=== PATIENT | male | born 1950 | race Caucasian/White ===

== ENCOUNTER 2020-11-21 09:06 | Emergency (ER) | payer MEDICARE, SELFPAY ==
--- NOTE | ~2020-11-21 | XR_ITS ---
EXAMINATION: XR chest 2V EXAM DATE: 11/21/2020 09:29 INDICATION: Cough and shortness of breath. TECHNIQUE: Frontal and lateral projections of the chest obtained and reviewed. Comparison is made to prior examination from 11/21/2017. FINDINGS: Suspect ill-defined bibasilar atelectasis or pneumonia. There is right upper lobe granuloma . No pneumothorax or pleural effusion. Cardiomediastinal silhouette is normal. There are no osseous a bnormalities identified. IMPRESSION: Ill-defined bibasilar opacities, could be atelectasis or pneumonia. Reviewed, dictated and finalized at location G. IMPRESSION: Ill-defined bibasilar opacities, could be atelectasis or pneumonia .
[2020-11-21 09:13] VITALS: BP 150/98; PULSE 109; RESP 21; TEMP 36.7; O2SAT 96
--- NOTE | 2020-11-21 09:16 | ECG_ITS ---
Measurements Intervals [place] Rate: 103 P: 42 CA: 174 QRS: 34 QRSD: 97 T: 62 QT: 334 QTc: 438 Interpretive Statements SINUS TACHYCARDIA VENTRICULAR PREMATURE COMPLEXES LOW QRS VOLTAGE IN LIMB LEADS BASELINE ARTIFACT- I, II, AVR BORDERLINE ECG Electronically Signed On 11-21-2020 9:23:07 CDT by Modesto Ramos D.O.
[2020-11-21 09:35] LABS: Basophils Absolute Auto 0.1 K/mm3 (0.0-0.1); Basophils Percent Auto 1.4 % (0.2-1.2); Eosinophils Absolute Auto 0.4 K/mm3 (0-0.3); Eosinophils Percent Auto 5.9 % (0-4.4); Hematocrit 41.4 % (42.0-52.0); Hemoglobin 14.1 g/dL (14.0-18.0); Immature Granulocyte Absolute 0.03 K/mm3 (0.00-0.031); Immature Granulocyte Percent A 0.5 % (0-0.5); Lymphocytes Absolute Auto 1.49 K/mm3 (0.9-3.2); Lymphocytes Percent Auto 22.4 % (18.3-44.2); Mean Corpuscular HGB Conc 34.1 g/dl (32-36); Mean Corpuscular Hemoglobin 32.1 pg (26-34); Mean Corpuscular Volume 94.3 fl (80-100); Mean Platelet Volume 10.4 fl (7.4-10.4); Monocytes Absolute Auto 0.6 K/mm3 (0.1-0.6); Monocytes Percent Auto 9.2 % (2.6-8.5); Neutrophils Percent Auto 60.6 % (45.5-73.1); Platelet Count Result 332 k/mm3 (150-375); Red Blood Count 4.39 M/mm3 (4.6-6.20); Red Cell Distribution Width 13.6 % (11.5-14.5); White Blood Count 6.7 K/mm3 (4.5-10.0)
[2020-11-21 09:50] LABS: Anion Gap 11 mmol/L (8-16); Blood Urea Nitrogen 21 mg/dL (9-20); Calcium 9.7 mg/dL (8.4-10.2); Carbon Dioxide 25 mmol/L (22-30); Chloride 101 mmol/L (98-107); Estimated CRCL calculation 57 ml/min; Estimated Glomerular Filt Rate > 60; Glucose 117 mg/dL (65-110); Potassium 4.2 mmol/L (3.4-5.0); Sodium 137 mmol/L (137-145)
[2020-11-21 09:57] LABS: NT Pro B Type Natriuretic Pept 99 pg/mL (5-100)
--- NOTE | 2020-11-21 10:12 | ED.GENADULT ---
HPI - General Adult General Chief complaint: Shortness of Breath/Dyspnea Stated complaint: copd, sob Time Seen by Provider: 11/21/20 09:55 Source: patient Mode of arrival: ambulatory Limitations: no limitations History of Present Illness HPI narrative: Patient is here for worsening exertional dyspnea. He is followed by pulmonology at another facility and was told to come to the emergency room if his shortness of breath worsened. He is currently on albuterol/Atrovent nebulizer 3 times a day plus a rescue inhaler, Trelegy daily and azithromycin 500 mg 3 times a week. His last course of steroids and treatment antibiotics was the end of September. He states that he also uses pep therapy at home, that helps him for short period of time but then he feels like he has a lot of mucus and he starts coughing with any exertion. Denies any fever or night sweats. Onset (ago): day(s) Relieving factors: medication Exacerbating factors: movement Associated symptoms: denies other symptoms Related Data Home Medications Medication Instructions Recorded Confirmed albuterol sulfate INHALATION 11/21/20 azithromycin 11/21/20 11/21/20 [id number]-[id number]-[id number] INHALATION 11/21/20 [Trelegy Ellipta] hydrochlorothiazide 11/21/20 ipratropium-albuterol ml INHALATION 11/21/20 losartan 11/21/20 Allergies Allergy/AdvReac Type Severity Reaction Status Date / Time JUDAH Inhibitors AdvReac Unknown Cough Verified 11/21/20 10:59 Review of Systems Review of Systems: All systems reviewed & are unremarkable except as noted in HPI and below [facility] Family History Family History Mother Hypertension Father Carcinoma of colon Patient's father is Social History Social History (Updated 11/21/20 @ 10:32 by Gladis Damon PA-C) Smoking status: Former smoker Alcohol intake: never Substance use: never Exam Const: General: alert Orientation/consciousness: patient oriented x3 Other: dyspnea with speech HENMT: Head: normal to inspection Mouth: Yes Normal oral and palatal mucosa present Throat: posterior oropharynx normal Eyes: Pupils: Equal, round and reactive pupils present Neck: Neck: no lymphadenopathy Resp: Effort & Inspection: labored (slighltyl) Auscultation: wheezes expiratory wheezes and left lower Other: cough with deep inspiraton Cardio: Rate: regular rate Rhythm: regular rhythm GI: GI Palp: Yes Soft to palpation Skin: General skin exam: normal color Extrem: General: normal to inspection Psych: Mental Status: mental status grossly normal Course Course Emergency Course: Feeling better after breathing treatment and IV steroids. Will speak with primary regarding continuing steroids follow-up in her office. No call back from primary pulm. Will treat with steriod burst and increase abx to treatment dosing. Vital Signs Vital signs: Vital Signs Temperature 36.7 C 11/21/20 09:13 Pulse Rate 109 H 11/21/20 09:13 Respiratory Rate 21 H 11/21/20 09:13 Blood Pressure 150/98 H 11/21/20 09:13 Pulse Oximetry 96 11/21/20 09:13 Temperature 36.7 C 11/21/20 09:13 Pulse Rate 93 11/21/20 13:54 Respiratory Rate 16 11/21/20 13:54 Blood Pressure 146/97 H 11/21/20 13:54 Pulse Oximetry 95 11/21/20 13:54 Medical Decision Making Vital Signs Vital Signs: Vital Signs Temperature 36.7 C 11/21/20 09:13 Pulse Rate 109 H 11/21/20 09:13 Respiratory Rate 21 H 11/21/20 09:13 Blood Pressure 150/98 H 11/21/20 09:13 Pulse Oximetry 96 11/21/20 09:13 Temperature 36.7 C 11/21/20 09:13 Pulse Rate 93 11/21/20 13:54 Respiratory Rate 16 11/21/20 13:54 Blood Pressure 146/97 H 11/21/20 13:54 Pulse Oximetry 95 11/21/20 13:54 Lab Data Result diagrams: 11/21/20 09:19 11/21/20 09:19 Labs: Lab Results 11/21/20 11/21/20 Range/Units 09:19 09:19 WBC 6.7 (4.5-10.0) K
[2020-11-21 10:35] VITALS: PULSE 88; RESP 16
[2020-11-21] MEDS: IPRATROPIUM BR 0.02% INH SOLN 0.5 MG/2.5 ML VIAL INHALATION (10:36)
[2020-11-21] MEDS: ALBUTEROL SULFATE NEB 2.5 MG/0.5 ML INH INHALATION (10:36)
[2020-11-21 10:58] VITALS: PULSE 96; RESP 16
[2020-11-21] MEDS: methylPREDNISolone SOD SUCC 40 MG VIAL IV PUSH (10:59)
[2020-11-21 13:54] VITALS: BP 146/97; PULSE 93; RESP 16; O2SAT 95
== END 2020-11-21 13:56 | disposition home or self-care (01) ==
PROVIDERS: Emergency Provider Emergency Medicine; PCP Physician Assistant
DX: J44.1 Chronic obstructive pulmonary disease with (acute) exacerbation (principal); Z87.891 Personal history of nicotine dependence; R00.0 Tachycardia, unspecified; I49.3 Ventricular premature depolarization
CPT/HCPCS: 36415; 71046; 80048; 83880; 85025; 93005; 94640; 96374; 99284; J2920

== ENCOUNTER 2022-07-26 09:51 | Outpatient (CLI) | payer MEDICARE, SELFPAY ==
--- NOTE | 2022-07-26 13:32 | WPDPFTINT ---
PFT Procedure Performed PFT Procedure Performed Spirometry with Pre/Post Bronchodilator Plethysmography (Lung Vol) Diffusing Cap (DLCO) Flow Vol Loop PFT Interpretation Lung volumes were measured with the body plethysmography method. The elevated FRC and RV are indicative of air trapping. Spirometry showed diminished expiratory flow rates and a diminished FEV1 to FVC ratio 40%, consistent with obstructive airway disease. Following administration of a bronchodilator there was no significant increase in the expiratory flow rates. Lung diffusion capacity is moderately reduced at 53% predicted. The flow volume loop is consistent with emphysema. Impression: Moderate obstructive airway disease with evidence of air trapping and no response to bronchodilators on this testing. Moderately reduced lung diffusion capacity.
--- NOTE | 2022-07-26 13:34 | WPDSIXMINUTE ---
Six Minute Walk Procedure Procedure Performed Pulmonary Stress Test (6 min walk) Six Minute Walk Six Minute Walk: This 6 minute walk test was carried out with the patient breathing ambient air. The baseline pre-walk oxyhemoglobin saturation was 91%. The patient walked 396 m with no stops during testing. During the walk the oxyhemoglobin saturation remained in the range of 91% to 95%. The perceived dyspnea on the Chloe scale was 3 at baseline and increased to 4 at the end of testing. Impression: No evidence of oxyhemoglobin desaturation on this testing.
== END 2022-07-26 09:52 | disposition home or self-care (01) ==
LOC: ANHPFT 09:52
PROVIDERS: PCP Physician Assistant; Visit Provider Nurse Practitioner
DX: J44.9 Chronic obstructive pulmonary disease, unspecified (principal)
CPT/HCPCS: 94060; 94618; 94726; 94729

== ENCOUNTER 2022-10-15 10:56 | Outpatient (CLI) | payer MEDICARE, SELFPAY ==
[2022-10-19 21:52] LABS: PSA, Free 1.52 ng/mL; PSA, Total 8.8 ng/mL (<=4.0); Percent Free Prostate Spec Ag 17 % (>25)
== END 2022-10-15 10:57 | disposition home or self-care (01) ==
PROVIDERS: PCP Physician Assistant
DX: R97.20 Elevated prostate specific antigen [PSA] (principal)
CPT/HCPCS: 36415; 84153; 84154

== ENCOUNTER 2022-12-03 09:30 | Outpatient (RCR) | payer MEDICARE, SELFPAY ==
[2022-08-24 08:46] VITALS: PULSE 77
== END 2022-12-03 23:59 | disposition home or self-care (01) ==
LOC: ANHCPREHAB 09:30
PROVIDERS: PCP Physician Assistant; Visit Provider Internal Medicine Pulmonary Disease
DX: J44.9 Chronic obstructive pulmonary disease, unspecified (principal)
CPT/HCPCS: 36415; 84153; 84154; 94625

== ENCOUNTER 2022-12-24 09:43 | Outpatient (RCR) | payer MEDICARE, SELFPAY ==
[2022-12-23 00:03] VITALS: PULSE 77
== END 2023-03-10 10:59 | disposition home or self-care (01) ==
LOC: ANHCPREHAB 09:43
PROVIDERS: PCP Physician Assistant; Visit Provider Internal Medicine Pulmonary Disease
DX: J44.9 Chronic obstructive pulmonary disease, unspecified (principal)
CPT/HCPCS: 94625

== ENCOUNTER 2023-09-13 11:18 | Emergency (ER) | payer MEDICARE, SELFPAY ==
[2023-09-13 11:20] VITALS: BP 135/69; PULSE 80; RESP 16; TEMP 36.6; O2SAT 96
[2023-09-13] MEDS: dexAMETHasone SOD PHOS INJ 10 MG/ML 1 ML VIAL IM (12:45)
--- NOTE | 2023-09-13 12:45 | ED.SKABFB ---
HPI - Skin/Abscess/Foreign Bdy General Chief complaint: Skin/Abscess/Foreign Body Stated complaint: body is itch 1 month Time Seen by Provider: 09/13/23 12:00 History of Present Illness HPI narrative: This is a 72-year-old male with a past medical history significant for COPD and previous liver spots according to him. Patient states he has been dealing with diffuse body itchiness for the last 6 weeks. He states that he was seen by his primary doctor and prescribed prednisone several times which did completely alleviated his symptoms however the recurred. Patient denies any new medications or detergents, dietary changes. He states he has otherwise been in his normal state of health but has unbearable HD as to his extremities. No new travel or injury. States he has been prescribed hydroxyzine intake and vaginal creams with some minimal improvement in his symptoms. Does have a follow-up appointment with his sighter but not been able to follow-up in the last few weeks due to cancellations. Denies any pain in his abdomen, chest, back. No fever, chills. No skin lesions, rashes, discoloration, skin deposits. Patient states he has itchiness is diffuse but sometimes localizes to the flexural creases. Related Data Home Medications Medication Instructions Recorded Confirmed albuterol sulfate 90 mcg/actuation inhalation 11/21/20 aerosol inhaler azithromycin 500 mg tablet 11/21/20 11/21/20 fluticasone fur. 100 mcg-umeclid inhalation 11/21/20 62.5 mcg-vilant 25 mcg inhalat.powder (Trelegy Ellipta) hydrochlorothiazide 12.5 mg tablet 11/21/20 ipratropium 0.5 mg-albuterol 3 mg ml inhalation 11/21/20 (2.5 mg base)/3 mL nebulization soln losartan 50 mg tablet 11/21/20 Allergies Allergy/AdvReac Type Severity Reaction Status Date / Time JUDAH Inhibitors AdvReac Unknown Cough Verified 09/13/23 11:19 [facility] Family History Family History Mother Hypertension Father Patient's father is Carcinoma of colon Pulmonary disease Social History Social History Smoking packs per day: 1 Smoking cigarettes per day: 20.0 Years smoked: 40 Smoking pack-years: 40.00 Smoking status: Former smoker Tobacco type: cigarettes Alcohol intake: never Substance use: never Living arrangements: with family Exam Narrative: GENERAL: [Well-appearing, well-nourished, and in no acute distress.] HEAD: [Normocephalic, atraumatic.] EYES: [PERRLA and EOMI.] ENT: Nares clear, no rhinorrhea or epistaxis. Mucous membranes moist. NECK: Supple. CHEST: [Clear to auscultation. No respiratory distress.] HEART: [Regular rate and rhythm]. No murmur heard. [Normal peripheral pulses.] ABDOMEN: [Soft, nondistended], [nontender], [No rigidity or guarding] EXTREMITIES: Normal range of motion. [No edema.] SKIN: Warm, dry, no rash. NEURO: [No focal deficits]. Alert and oriented [x3.] PSYCH: [Normal mood and affect.] Course Vital Signs Vital signs: Vital Signs Temperature 36.6 C 09/13/23 11:20 Pulse Rate 80 09/13/23 11:20 Respiratory Rate 16 09/13/23 11:20 Blood Pressure 135/69 09/13/23 11:20 Pulse Oximetry 96 09/13/23 11:20 Oxygen Delivery Room Air 09/13/23 11:20 Temperature 36.6 C 09/13/23 11:20 Pulse Rate 80 09/13/23 11:20 Respiratory Rate 16 09/13/23 11:20 Blood Pressure 135/69 09/13/23 11:20 Pulse Oximetry 96 09/13/23 11:20 Oxygen Delivery Room Air 09/13/23 11:20 MDM - Skin/Abscess/Foreign Bdy MDM Narrative Medical decision making narrative: This is a 72-year-old male presenting for diffuse pruritus without urticaria. It is usually localizes to his the flexural creases in his elbows, knees, underneath the buttocks. Has been trying prednisone, topical creams, Benadryl, hydroxyzine although only minimal relief of symptoms
[2023-09-13 13:00] LABS: Basophils Absolute Auto 0.1 K/mm3 (0.0-0.1); Basophils Percent Auto 0.9 % (0.2-1.2); Eosinophils Absolute Auto 0.4 K/mm3 (0-0.3); Hematocrit 44.3 % (42.0-52.0); Hemoglobin 15.1 g/dL (14.0-18.0); Immature Granulocyte Absolute 0.02 K/mm3 (0.00-0.031); Immature Granulocyte Percent A 0.3 % (0-0.5); Lymphocytes Percent Auto 17.1 % (18.3-44.2); Mean Corpuscular HGB Conc 34.1 g/dl (32-36); Mean Corpuscular Hemoglobin 33.2 pg (26-34); Mean Corpuscular Volume 97.4 fl (80-100); Mean Platelet Volume 9.8 fl (7.4-10.4); Monocytes Absolute Auto 0.5 K/mm3 (0.1-0.6); Monocytes Percent Auto 7.5 % (2.6-8.5); Neutrophils Absolute Auto 4.8 K/mm3 (1.3-6.7); Neutrophils Percent Auto 68.2 % (45.5-73.1); Platelet Count Result 373 k/mm3 (150-375); Red Blood Count 4.55 M/mm3 (4.6-6.20)
[2023-09-13 13:26] LABS: Alanine Aminotransferase 25 U/L (6-50); Albumin Level 4.6 g/dL (3.5-5.1); Alkaline Phosphatase 78 U/L (38-126); Anion Gap 10 mmol/L (4-12); Aspartate Amino Transferase 29 U/L (17-59); Bilirubin,Total 1.3 mg/dL (0.2-1.3); Blood Urea Nitrogen 21 mg/dL (9-20); Calcium 9.7 mg/dL (8.4-10.2); Carbon Dioxide 24 mmol/L (22-30); Chloride 102 mmol/L (98-107); Estimated CRCL calculation 50 ml/min; Estimated Glomerular Filt Rate > 60; Glucose 81 mg/dL (65-110); Magnesium 2.2 mg/dL (1.6-2.3); Potassium 4.9 mmol/L (3.4-5.0); Sodium 136 mmol/L (137-145)
[2023-09-13 13:30] LABS: CRP < 0.5 mg/dL (<1.0)
[2023-09-13 14:05] LABS: Erythrocyte Sedimentation Rate 9 mm/hr (0-20)
== END 2023-09-13 13:51 | disposition home or self-care (01) ==
PROVIDERS: Emergency Provider Student in an Organized Health Care Education/Training Program; PCP Physician Assistant
DX: L29.9 Pruritus, unspecified (principal); J44.9 Chronic obstructive pulmonary disease, unspecified; Z87.891 Personal history of nicotine dependence
CPT/HCPCS: 36415; 80053; 83735; 85025; 85652; 86140; 96372; 99283; J1100

== ENCOUNTER 2023-11-30 00:25 | Emergency (ER) | payer MEDICARE, SELFPAY ==
--- NOTE | ~2023-11-30 | XR_ITS ---
Clinical Indication: COPD, shortness of breath PA and lateral views of the chest: Comparison: 11/21/2020 Findings: Stable calcified right apical granuloma. COPD pattern of the lungs present. Cardiomediastin al silhouette is within normal limits. Bones and soft tissues are unremarkable. Impression: COPD. No acute abnormality seen. Reviewed, dictated and finalized at location . Impression: COPD. No acute abnormality seen.
[2023-11-30 00:25] VITALS: BP 155/97; PULSE 111; RESP 21; TEMP 36.3; O2SAT 93
--- NOTE | 2023-11-30 00:33 | ECG_ITS ---
Test Date: 2023-11-30 00:44:17 Measurements Intervals [place] Rate: 104 P: 52 GA: 171 QRS: 54 QRSD: 102 T: 66 QT: 343 QTc: 453 Interpretive Statements SINUS TACHYCARDIA No previous ECG available for comparison Electronically Signed On 11-30-2023 09:47:48 CDT by Hui Dietz M.D.
[2023-11-30 00:35] VITALS: PULSE 111; O2SAT 93
[2023-11-30 00:53] LABS: Basophils Absolute Auto 0.1 K/mm3 (0.0-0.1); Eosinophils Absolute Auto 0.7 K/mm3 (0-0.3); Eosinophils Percent Auto 11.7 % (0-4.4); Hematocrit 40.4 % (42.0-52.0); Hemoglobin 13.4 g/dL (14.0-18.0); Immature Granulocyte Absolute 0.02 K/mm3 (0.00-0.031); Immature Granulocyte Percent A 0.3 % (0-0.5); Lymphocytes Absolute Auto 2.01 K/mm3 (0.9-3.2); Lymphocytes Percent Auto 34.5 % (18.3-44.2); Mean Corpuscular HGB Conc 33.2 g/dl (32-36); Mean Corpuscular Hemoglobin 32.3 pg (26-34); Mean Corpuscular Volume 97.3 fl (80-100); Mean Platelet Volume 10.5 fl (7.4-10.4); Monocytes Absolute Auto 0.5 K/mm3 (0.1-0.6); Monocytes Percent Auto 9.1 % (2.6-8.5); Neutrophils Absolute Auto 2.5 K/mm3 (1.3-6.7); Neutrophils Percent Auto 43.4 % (45.5-73.1); Platelet Count Result 281 k/mm3 (150-375); Red Blood Count 4.15 M/mm3 (4.6-6.20); Red Cell Distribution Width 13.3 % (11.5-14.5); White Blood Count 5.8 K/mm3 (4.5-10.0)
--- NOTE | 2023-11-30 00:57 | ED.SOB ---
HPI - SOB/Dyspnea General Chief Complaint: Shortness of Breath/Dyspnea Stated Complaint: difficulty breathing, wheezing Time Seen by Provider: 11/30/23 00:33 Source: patient Mode of arrival: EMS Limitations: no limitations History of Present Illness HPI Narrative: Patient is a 73 y/o male who presents to the ED via EMS with report of SOB. Patient reports he has history of COPD and feels as though he had a flare up tonight. He states this typically occurs at night when he was feeling down. He states tonight's episode came on suddenly. He attempted using his nebulizer machine, but did not improve his breathing. EMS was then called. Patient was found to be hypoxic upon emesis arrival to 87% on room air. He was given Decadron and a nebulizer treatment en route to the ED. He is feeling slightly improved currently. He reports having congestion and an increased cough over the last few weeks. He does also report having intermittent left-sided chest pain, worse with exertion over the last few days. Denies chest pain currently. Denies fevers, lower extremity pain or swelling. Denies history of blood clots or CHF. History of previous cardiac ablation for PVCs. He is not on any anticoagulation. Related Data Home Medications Medication Instructions Recorded Confirmed albuterol sulfate 90 mcg/actuation inhalation 11/21/20 aerosol inhaler azithromycin 500 mg tablet 11/21/20 11/21/20 fluticasone fur. 100 mcg-umeclid inhalation 11/21/20 62.5 mcg-vilant 25 mcg inhalat.powder (Trelegy Ellipta) hydrochlorothiazide 12.5 mg tablet 11/21/20 ipratropium 0.5 mg-albuterol 3 mg ml inhalation 11/21/20 (2.5 mg base)/3 mL nebulization soln losartan 50 mg tablet 11/21/20 Allergies Allergy/AdvReac Type Severity Reaction Status Date / Time JUDAH Inhibitors AdvReac Unknown Cough Verified 11/30/23 00:38 Review of Systems Review of Systems: All systems reviewed & are unremarkable except as noted in HPI. All systems reviewed & are unremarkable except as noted in HPI and below [facility] Past Medical History Medical History (Updated 11/30/23 @ 01:33 by Rachel Stevens PA-C) COPD (chronic obstructive pulmonary disease) Pure hypercholesterolemia Surgical History Surgical History (Updated 11/30/23 @ 01:12 by Rachel Stevens PA-C) H/O cardiac radiofrequency ablation Family History Family History Mother Hypertension Father Patient's father is Carcinoma of colon Pulmonary disease Social History Social History Smoking packs per day: 1 Smoking cigarettes per day: 20.0 Years smoked: 40 Smoking pack-years: 40.00 Smoking status: Former smoker Tobacco type: cigarettes Alcohol intake: never Substance use: never Living arrangements: with family Exam Narrative: GENERAL: Elderly but overall well appearing, well-nourished, non-toxic, in no acute distress. HEAD: Normocephalic, atraumatic. RESPIRATORY: Airway patent, respirations mildly labored. Diminished lung sounds in bases bilaterally. Slight crackles noticed in bases. Diffuse expiratory wheezing bilaterally, worse throughout right lung. CARDIOVASCULAR: Regular rate and rhythm without murmurs, rubs, or gallops. Peripheral pulses intact. MUSCULOSKELETAL: Moves all extremities. No gross deformities. No peripheral edema. No calf tenderness. SKIN: Warm, dry, normal color. NEURO: A&O X3. Speech clear. Cranial nerves II-XII grossly intact. Steady gait. No ataxic movements. PSYCHIATRIC: Appropriate mood and affect. Normal interaction. Course Vital Signs Vital signs: Vital Signs Temperature 97.4 F L 11/30/23 00:25 Pulse Rate 111 H 11/30/23 00:25 Respiratory Rate 21 H 11/30/23 00:25 Blood Pressure 155/97 H 11/30/23 00:25 Pulse Oximetry 93 11/30/23 00:25 Oxygen Delivery Room
[2023-11-30 01:07] LABS: Partial Thromboplastin Time 26.8 Seconds (22.3-36.8)
[2023-11-30 01:12] LABS: Alanine Aminotransferase 23 U/L (6-50); Albumin Level 4.2 g/dL (3.5-5.1); Alkaline Phosphatase 74 U/L (38-126); Anion Gap 11 mmol/L (4-12); Aspartate Amino Transferase 30 U/L (17-59); Bilirubin,Total 0.9 mg/dL (0.2-1.3); Blood Urea Nitrogen 16 mg/dL (9-20); Calcium 9.1 mg/dL (8.4-10.2); Carbon Dioxide 21 mmol/L (22-30); Chloride 106 mmol/L (98-107); Estimated CRCL calculation 54 ml/min; Estimated Glomerular Filt Rate > 60; Glucose 111 mg/dL (65-110); Potassium 4.3 mmol/L (3.4-5.0); Sodium 138 mmol/L (137-145)
[2023-11-30 01:14] LABS: NT Pro B Type Natriuretic Pept 302 pg/mL (19.9-100)
[2023-11-30 01:15] LABS: Prothrombin Time 13.8 Seconds (11.1-14.7)
[2023-11-30 01:18] VITALS: PULSE 90; RESP 14
[2023-11-30] MEDS: IPRATROPIUM BR 0.02% INH SOLN 0.5 MG/2.5 ML VIAL 1.5 MG INHALATION (01:18)
[2023-11-30] MEDS: LEVALBUTEROL NEB 1.25 MG/3 ML 2.5 MG INHALATION (01:18)
[2023-11-30 01:21] LABS: D Dimer < 0.27 ug/mL (<0.48)
[2023-11-30 01:28] LABS: Influenza A QL RT-PCR Negative (Negative); Influenza B QL RT-PCR Negative (Negative); RSV RNA, RT-PCR Negative (Negative); SARS-CoV-2 RNA PCR Negative (Negative)
[2023-11-30 01:29] LABS: Troponin I < 0.012 ng/mL (0.000-0.034)
[2023-11-30 01:40] VITALS: BP 122/72; PULSE 88; RESP 18; O2SAT 100
[2023-11-30 02:19] VITALS: PULSE 87; RESP 17
[2023-11-30] MEDS: DOXYCYCLINE HYCLATE 100 MG TABLET PO (03:08)
[2023-11-30 03:13] VITALS: BP 130/79; PULSE 81; RESP 18; O2SAT 93
== END 2023-11-30 03:14 | disposition home or self-care (01) ==
PROVIDERS: Emergency Provider Physician Assistant; PCP Physician Assistant
DX: J44.1 Chronic obstructive pulmonary disease with (acute) exacerbation (principal); E78.00 Pure hypercholesterolemia, unspecified; Z87.891 Personal history of nicotine dependence; Z79.899 Other long term (current) drug therapy; R00.0 Tachycardia, unspecified
CPT/HCPCS: 36415; 71046; 80053; 83880; 84484; 85025; 85380; 85610; 85730; 87637; 93005; 94640; 99284; A9270

== ENCOUNTER 2024-06-19 14:28 | Outpatient (NON) | payer MEDICARE, SELFPAY ==
--- OUTSIDE RECORDS SUMMARY | 2024-06-19 14:35 | XMS_ITS | Data Portability ---
Author Organization [facility], Main Office Address [address] [place] [address] Care Team Providers Care Net Software Architect Name Role Phone KWABENA LEVY Primary Care Provider KWABENA LEVY Referring Provider JAY BARRAGAN Primary Care Provider JAY BARRAGAN Referring Provider Assessment Encounter Date Assessment Date Assessment LastModified by Organization Details LastModified Time 07/30/2022 07/30/2022 STATEMENT OF MEDICAL NECESSITY I recommend Trelegy Ellipta 100 and budesonide 0.25 BID per nebulizer this has kept him stable and I continue to recommend this as his inhaled therapy regimen. Not available 08/02/2022 14:58:05 Plan of Treatment Reminders Order Date Submit Date Provider Last Modified By Organization Details Last Modified Time Details Appointments None recorded. Lab hepatic function panel, serum 2022 023 ANDREIA Not available 3 18:22:51 Referral pulmonary rehab referral 2022 023 [email or web address] 25 [facility], [address], [address], 3 10:58:04 Procedures None recorded. Surgeries None recorded. Imaging None recorded. Medication Orders Trelegy Ellipta 100 mcg-62.5 mcg-25 mcg powder for inhalation 2022 023 ANDREIA [id number], [address] [place], [address], 3 15:57:14 budesonide 0.25 mg/2 mL suspension for nebulizatio n 2022 023 [email or web address] [id number], [address] [place], [address], 16:31:32 roflumilast 250 mcg tablet 2022 023 [email or web address] 4 [facility][id number], [address] [place], [address], 3 10:44:01 roflumilast 500 mcg tablet 2022 023 [email or web address] 4 [facility][id number], [address] [place], [address], 10:44:04 Patient TargetsNo targets recorded. Patient Instructions Encounter Date Encounter Id Patient Instructions Last Modified By Organization Details Last Modified Time 01/11/2023 [id number] dementia rating scale-2* [email or web address] Not available 01/12/2023 09:48:14 multi-dimensiona l health assessment questionnaire* [email or web address] Not available 01/12/2023 09:48:18 care plan* [email or web address] Not available 12/16 09:48:09 advance care planning: care instructions Not available 01/11/2023 23:11:35 advance directiv es: care instructions Not available 01/11/2023 23:11:35 [place] Advance Directives Not available 01/11/2023 23:11:35 Personalized a lth Plan and Screening Recommendations Advance Directives - Do you have one? Yes Advance Directives - Do we have your advance directive on file in your health record? No, please bring in a copy at your earliest convenience Primary Prevention/Interven tion (prevents or decreases the chance of common diseases from occurring) Smoking Risk: Non Smoker Alcohol Misuse Screening: Negative Weight: Appropriate Physical activity: Appropriate physical activity Nutrition: Good Fall Risk (screened today): Low Vaccines Pneumococcal: Ordered Recommended today Recommended today, but you have declined No further needed Influenza: Your next one in the fall of this year Chronic Disease Risks Stroke: Low Risk Intermediate Risk I have no recommendations Act higinio diagnosis, Continue current treatment plan Heart Attack: Low risk Intermediate Risk I have no recommendations Act higinio diagnosis, Continue current treatment plan Clogging of the Arteries: Low risk Intermediate Risk I have no recommendations Act higinio diagnosis, Continue current treatment plan Diabetes: Low Risk Intermediate Risk Active diagnosis, Continue current treatment plan Secondary Prevention/Interven tion (detects treatable diseases before they may cause symptoms, disability, or ) Prostate Cancer Screening: Colon Cancer Screening: Colonoscopy Date Screening Last Performed: Eye Disease Screening: Ordered Recommended today Dementia Risk: Low Depression Screening: Negative Active diagnosis, Continue current treatment plan Not available 01/11/2023 23:11:14 Reason for Referral Pulmonary Rehab Referral for Severe chronic obstructive pulmonary disease Referring Physician: Rosalia Guerrero, Pulmonary Disease, Encounter Date: 07/30/2022 Results Created Date Observation Date Name Description Value Unit Range Abnormal Flag Note LastModifiedBy Organization Detail LastModifiedTime 01/14/2001/11/2022 XR, lumbo sacra l spine No observ ation record ed. [id number], [place], [address], 04/14/2022 05:04:14 06/29/1906/25/2022 CT, chest , w/o contr ast No observ ation record ed. Not Available 18:05:41 07/27/1907/26/2022 compl ete PFT w/ post [facility] hodil ator lopez metry * No observ ation record ed. Not Available 07/27 09:47:18 07/27/19 23 07/26/2022 six minut e walk test* No observ ation record ed. Not Available 07/27 09:47:28 12/29/19 23 12/28/2022 pulmo nary rehab ilita tion* No observ ation record ed. Not Available 12/31 09:29:14 Result Notes None recorded. Problems Name Problem SNOMED Code Status Onset Date Resolution Date Notes Provider Name and Address Organization Details Recorded Time Severe chronic obstructiv e pulmonary disease 718661749 Active 2022 JADE Mitchell- [address] [facility], [place] [address], [place], [address] , [employer] 3 15:54:37 Pulmonary emphysema 00963913 Active 2022 [facility] [address] [facility], [place] [address], [place], [address] , [employer] 3 15:00:20 Chronic cough 20870425 Active 2022 [facility] [address] [facility], [place] [address], [place], [address] , [employer] 3 15:01:23 Benign essential hypertensi on 3070678 Active 2021 Not Available [facility] 3 04:51:12 Plantar fascial fibromatos is 29794412 Active Not Available [facility] 3 04:51:12 Chronic obstructiv e pulmonary disease 00407209 Active 2021 Not Available [facility] 3 04:51:12 Chronic obstructiv e pulmonary disease 89478080 Completed 201706/04/2020 Not Available [facility] 3 04:51:12 Body mass index 25-29 - overweight 898974826 Active 2021 Not Available [facility] 3 04:51:12 Acute exacerbati on of chronic obstructiv e pulmonary disease 932171890 Active 2021 Not Available [facility] 3 04:51:12 Lumbago with sciatica 816343554 Active 2021 Not Available [facility] 3 04:51:12 Ventricula r premature complex 477507755 Active 2021 Not Available [facility] 3 04:51:13 Lesion of liver 794781450 Active 2021 Not Available [facility] 3 04:51:13 Current tear of medial cartilage AND/OR meniscus of knee Active 2019 Not Available [facility] 3 04:51:13 Moderate chronic obstructiv e pulmonary disease 372626289 Active 2018 Not Available [facility] 3 04:51:13 Hypertensi ve disorder 41646635 Active 2017 Not Available [facility] 3 04:51:13 Solitary nodule of lung 766182565 Active 2018 Not Available [facility] 3 04:51:13 Cough 01807211 Active 2021 Not Available [facility] 3 04:51:13 Hyperlipid emia 58295280 Active 2018 Not Available [facility] 3 04:51:13 Dyspnea on exertion 41973785 Active 2021 Not Available [facility] 3 04:51:13 Problem Notes None recorded. Procedures Surgical History Date Name Laterality Status Provider Name and Address Organization Details Recorded Time 01/12/20 23 Medicare Wellness CPT Code, subsequent completed MERRITT Duenas [facility] 01/11/2023 10:41:49 02/14/19 20 colonoscopy completed MERRITT Duenas [facility] 01/11/2023 11:11:54 Hernia Repair completed Not Available [facility] 04/14/2022 04:42:53 Imaging Results Imaging Date Name Status LastModified by Organization Details LastModified Time 01/11/2022 XR, lumbosacral spine completed [id number], [place], [address], 04/14/2022 05:04:14 06/25/2022 CT, chest, w/o contrast completed [email or web address] Information not available 07/05/2022 18:05:41 07/26/2022 complete PFT w/ post bronchodilator spirometry* completed Information not available 07/27/2022 09:47:18 07/26/2022 six minute walk test* completed Information not available 07/27/2022 09:47:28 12/28/2022 pulmonary rehabilitation* completed Information not available 12/31/2022 09:29:14 Procedure Notes None recorded. Medical Equipment None Reported. Allergies Allergen ID Allergen Name Allergen Category Reaction Reaction Severity Criticality Documentation Date Start Date Code Code System Note Provider Name and Address Organization Details Recorded Time 7983 Substance with sulfonami de structure and antibacte rial mechanism of action (substanc e) medicatio n Not available Not available Not available 04/14/2022 96242 8003 SNOMED Not Available [facility] 05:03:45 Medications Name Sig Start Date Stop Date Status Note LastModified by Organization Details LastModified Time losartan 50 mg tablet Take 1 tablet every day by oral route. active Not Available Not Available No t Available prednisone 10 mg tablet PLEASE SEE ATTACHED FOR DETAILED DIRECTION S 01/10 completed Not Available Not Available Not Available doxycycline hyclate 100 mg capsule TAKE 1 CAPSULE BY MOUTH TWICE A DAY FOR 10 DAYS 01/10 completed Not Available Not Available Not Available atorvastati n 20 mg tablet Take 1 tablet every day by oral route. 2017 active Not Available Not Available Not Avai lable ipratropium 0.5 mg-albutero l 3 mg (2.5 mg base)/3 mL nebulizatio n soln INHALE 3 ML EVERY 4 HOURS BY NEBULIZAT ION ROUTE NEEDED. active Not Available Not Available No t Available albuterol sulfate 2.5 mg/3 mL (0.083 %) solution for nebulizatio n Inhale 3 mL 3 times a day by nebulizat ion route as needed. 01/07 completed Not Available Not Available Not Available ciprofloxac in 750 mg tablet Take 1 tablet every 12 hours by oral route as directed for 7 days. 01/10 completed Not Available Not Available Not Available azithromyci n 250 mg tablet Take 1 tablet 3 times a week by oral route as directed for 90 days. 01/06 completed Not Available Not Available Not Available hydrocodone 5 mg-acetamin ophen 325 mg tablet TAKE 1 TABLET BY MOUTH EVERY 4 HOURS NEEDED FOR PAIN active Not Available Not Available No t Available meloxicam 15 mg tablet Take 1 tablet every day by oral route as needed. active Not Available Not Available No t Available prednisone 20 mg tablet TAKE 3 TABLETS BY MOUTH EVERY DAY IN THE MORNING FOR 5 DAYS 01/10 completed Not Available Not Available Not Available ciprofloxac in 500 mg tablet TAKE 1 TABLET BY MOUTH TWICE A DAY active Not Available Not Available No t Available prednisone 10 mg tablets in a dose pack 01/23 completed Not Available Not Available Not Available Kenalog 10 mg/mL suspension for injection In office injection administe red by the provider 06/04 completed [facility]: 0003- [phone]- 20 Not Available Not Available Not Available losartan 25 mg tablet TAKE 1 TABLET (25 MG TOTAL) BY MOUTH DAILY. 01/10 completed Not Available Not Available Not Available fiber 625 mg tablet Take by oral route. 08/08 completed Not Available Not Available Not Available Advair Diskus 250 mcg-50 mcg/dose powder for inhalation Inhale 1 puff twice a day by inhalatio n route. 06/04 completed Not Available Not Available Not Available metoprolol tartrate 50 mg tablet TAKE 1 TABLET BY MOUTH TWICE A DAY active Not Available Not Available No t Available budesonide 0.25 mg/2 mL suspension for nebulizatio n Inhale 2 mL twice a day by nebulizat ion route for 90 days. 10/25 completed Not Available Not Available Not Available Aspir-81 mg tablet,kayla yed release Take 1 tablet every day by oral route. 10/23 completed Not Available Not Available Not Available levofloxaci n 750 mg tablet TAKE 1 TABLET BY MOUTH EVERY DAY DIRECTED FOR 10 DAYS 01/10 completed Not Available Not Available Not Available methylpredn isolone 4 mg tablets in a dose pack TAKE 1 DOSE PK BY ORAL ROUTE DIRECTED. 01/07 completed Not Available Not Available Not Available albuterol sulfate HFA 90 mcg/actuati on aerosol inhaler INHALE 2 PUFFS EVERY 4 6 HOURS BY INHALATIO N ROUTE NEEDED FOR 30 DAYS. active Not Available Not Available No t Available losartan 50 mg-hydrochl orothiazide 12.5 mg tablet TK 1 T PO QD 02/12 completed Not Available Not Available Not Available losartan 100 mg tablet TAKE 1 TABLET BY MOUTH EVERY DAY active Not Available Not Available No t Available loratadine 10 mg tablet Take 1 tablet every day by oral route. 10/23 completed Not Available Not Available Not Available amoxicillin 875 mg-allyson marroquin clavulanate 125 mg tablet TAKE 1 TABLET BY MOUTH EVERY 12 HOURS FOR 7 DAYS 09/10 completed Not Available Not Available Not Available azithromyci n 500 mg tablet TAKE ONE TABLET BY MOUTH THREE TIMES WEEKLY DIRECTED 01/10 completed Not Available Not Available Not Available metoprolol tartrate 25 mg tablet TAKE 1 TABLET BY MOUTH TWICE A DAY 01/11 completed Not Available Not Available Not Available Fiber Therapy (methylcell ulose) 500 mg tablet Take by oral route. 06/04 completed Not Available Not Available Not Available Advair Diskus 01/07 completed Not Available Not Available Not Available lidocaine (PF) 10 mg/mL (1 %) injection solution In office injection administe red by the provider 06/04 completed [facility]: 0409- 4276- 17 Not Available Not Available Not Available hydrochloro thiazide 12.5 mg tablet TAKE 1 TABLET BY MOUTH EVERY DAY active Not Available Not Available No t Available Symbicort 160 mcg-4.5 mcg/actuati on HFA aerosol inhaler Inhale 2 puffs twice a day by inhalatio n route for 30 days. 01/07 completed Not Available Not Available Not Available budesonide 1 mg/2 mL suspension for nebulizatio n INHALE 2 ML VIA NEBULIZER TWICE A DAY active Not Available Not Available No t Available Vitamin D3 50 mcg (2,000 unit) tablet Take 1 unit every day by oral route. 06/04 completed Not Available Not Available Not Available roflumilast 500 mcg tablet TAKE ONE-HALF A TABLET BY MOUTH DAILY active Not Available Not Available No t Available Combivent Respimat 20 mcg-100 mcg/actuati on solution for inhalation Inhale 1 puff 4 times a day by inhalatio n route. 01/07 completed Not Available Not Available Not Available Spiriva Respimat 2.5 mcg/actuati on solution for inhalation Inhale 2 puffs every day by inhalatio n route. 06/04 completed Not Available Not Available Not Available Spiriva Respimat 01/07 completed Not Available Not Available Not Available Arnuity Ellipta 100 mcg/actuati on powder for inhalation active Not Available Not Available N ot Available Stiolto Respimat 2.5 mcg-2.5 mcg/actuati on solution for inhalation Inhale 2 puffs every day by inhalatio n route. 12/05 completed Not Available Not Available Not Available omega 3 600 mg-dha 216 mg-epa 324 mg-fish oil 1,200 mg capsule,del rel Take by oral route. 2018 active Not Available Not Available Not Avai lable Trelegy Ellipta 100 mcg-62.5 mcg-25 mcg powder for inhalation INHALE 1 PUFF EVERY DAY BY INHALATIO N ROUTE DIRECTED FOR 90 DAYS. active Not Available Not Available No t Available roflumilast 250 mcg tablet Take 1 tablet every day by oral route. active Not Available Not Available No t Available Fish Oil 1,200 mg (144 mg-216 mg) capsule Take by oral route. 2019 active Not Available Not Available Not Avai lable Fluzone High-Dose Quad (PF) 240 mcg/0.7 mL IM syringe PHARMACY ADMINISTE RED 06/04 completed Not Available Not Available Not Available Vitals Date Recorded Body mass index (BMI) Body height Oxygen saturation Oxygen saturation in Arterial blood by Pulse oximetry Heart rate Body temperature Body weight Systolic blood pressure Diastolic blood pressure Provider Name and Address Organization Details Last Updated DateTime 2 26.9 kg/m2 170.18 cm 96 % 96 % 76 /min 97.7 [degF] 20842.8 9 g 124 mm[Hg] 70 mm[Hg] Not Available [employer] 3 04:44:35 Date Recorded Body height Body weight Body temperature Heart rate Oxygen saturation Oxygen saturation in Arterial blood by Pulse oximetry Systolic blood pressure Diastolic blood pressure Provider Name and Address Organization Details Last Updated DateTime 3 170.18 cm 04231.4 8 g 97.3 [degF] 84 /min 95 % 95 % 134 mm[Hg] 68 mm[Hg] Orquidea Garcia RN [place] [facility] [place] [employer] 3 15:16:59 Date Recorded Body height Body mass index (BMI) Body weight Body temperature Heart rate Oxygen saturation Oxygen saturation in Arterial blood by Pulse oximetry Systolic blood pressure Diastolic blood pressure Provider Name and Address Organization Details Last Updated DateTime 3 170.18 cm 26 kg/m2 14046.3 3 g 98.2 [degF] 79 /min 96 % 96 % 130 mm[Hg] 68 mm[Hg] Claudia Rudolph MA [facility] [employer] [facility] 3 10:57:06 Date Recorded Body height Body mass index (BMI) Body weight Body temperature Heart rate Oxygen saturation Oxygen saturation in Arterial blood by Pulse oximetry Systolic blood pressure Diastolic blood pressure Provider Name and Address Organization Details Last Updated DateTime 3 170.18 cm 25.7 kg/m2 92403.1 5 g 98.3 [degF] 94 /min 96 % 96 % 118 mm[Hg] 56 mm[Hg] Lucy Ferrell [facility] [employer] [facility] 3 14:21:50 Date Recorded Body height Body temperature Body mass index (BMI) Body weight Respiratory rate Oxygen saturation Oxygen saturation in Arterial blood by Pulse oximetry Heart rate Systolic blood pressure Diastolic blood pressure Provider Name and Address Organization Details Last Updated DateTime 3 170.18 cm 96.3 [degF] 24.6 kg/m2 09918 g 16 /min 96 % 96 % 88 /min 130 mm[Hg] 80 mm[Hg] MERRITT Duenas [facility] [employer] [facility] 3 11:10:23 Social History Question Answer Notes LastModified by Organization Details LastModified Time Tobacco Smoking Status Former Smoker quit 2013 Gisela Matias MA [facility] [employer] [facility] 10/25/2022 14:15:45 Do You Have An Advance Directive? Yes [id number] Information not available 04/14/2022 What Is Your Level Of Alcohol Consumption? Heavy [id number] Information not available 04/14/2022 Do You Wear A Helmet When Biking? No Information not available 10/25/2022 Are You Blind Or Do You Have Difficulty Seeing? Yes Wears Glassses Information not available 10/25/2022 What Is Your Level Of Caffeine Consumption? Moderate [id number] Information not available 04/14/2022 How Much Tobacco Do You Chew? None [id number] Information not available 04/14/2022 In The 14 Days Before Symptom Onset, Have You Had Close Contact With A Laboratory-conf irmed COVID-19 While That Case Was Ill? No Information not available 10/25/2022 In The 14 Days Before Symptom Onset, Have You Had Close Contact With A Person Who Is Under Investigation For COVID-19 While That Person Was Ill? No Information not available 10/25/2022 Are You Deaf Or Do You Have Serious Difficulty Hearing? No Information not available 10/25/2022 What Type Of Diet Are You Following? REGULAR [id number] Information not available 04/14/2022 Do You Or Have You Ever Used E-cigarettes Or Vape? Never Used Electronic Cigarettes Information not available 10/25/2022 What Is The Highest Grade Or Level Of School You Have Completed Or The Highest Degree You Have Received? [id number] Information not available 10/25/2022 Have There Been Any Changes To Your Family Or Social Situation? No Information not available 10/25/2022 When Did You Quit Smoking? 6-10yearssincelast cigarette Information not available 10/25/2022 Are There Any Guns Present In Your Home? Yes Information not available 10/25/2022 Do You Use Insect Repellent Routinely? Yes Information not available 10/25/2022 Where Do You Live? SingleLevelHouse Information not available 01/11/2023 Advance Directive- Providers Has Reviewed Directive And Consents To Follow Them (insert Provider Name With Any Objectives In Notes Field) Yes [id number] Information not available 04/14/2022 Do You Have A Medical Power Of Clam Shucking Machine Tender? Yes , Francine [email or web address] Information not available 01/11/2023 What Was The Date Of Your Most Recent Tobacco Screening? 09/10/2022 Information not available 10/25/2022 Have You Ever Been Counseled For Unhealthy Alcohol Use? No Information not available 10/25/2022 Do You Have Any Pets? No [email or web address] Information not available 01/11/2023 What Is Your Relationship Status? [id number] Information not available 04/14/2022 Do You Use Your Seat Belt Or Car Seat Routinely? Yes Information not available 10/25/2022 Do You Have Smoke And Carbon Monoxide Detectors In Your Home? Yes Information not available 10/25/2022 At What Age Did You Start Smoking Tobacco? 18 Information not available 10/25/2022 Are You Passively Exposed To Smoke? No Information not available 10/25/2022 Do You Or Have You Ever Used Smokeless Tobacco? Never Used Smokeless Tobacco [id number] Information not available 04/14/2022 Are There Any Smokers In Your House? No Information not available 10/25/2022 How Much Tobacco Do You Smoke? 1 PPD [id number] Information not available 04/14/2022 Do You Feel Stressed (tense, Restless, Nervous, Or Anxious, Or Unable To Sleep At Night)? [id number] Information not available 10/25/2022 Do You Use Any Illicit Or Recreational Drugs? No Information not available 10/25/2022 Do You Use Sunscreen Routinely? Yes Information not available 10/25/2022 Has Tobacco Cessation Counseling Been Provided? No Information not available 10/25/2022 Have You Recently Traveled Abroad? No Information not available 10/25/2022 Do You Have Any Dietary Restrictions? No Information not available 10/25/2022 Sex: Unknown Functional Status Question Answer Note LastModified by Organizat ion Details LastModified Time Do you have difficulty walking or climbing stairs? No Information not available 10/25/2022 Do you have transportation difficulties? No Information not available 10/25/2022 Are you able to walk? YESWOREST Information not available 10/25/2022 Do you have difficulty doing errands alone? No Information not available 10/25/2022 Are you able to care for yourself? Yes Information n ot available 10/25/2022 Do you have difficulty dressing or bathing? No Information not available 10/25/2022 What is your exercise level? Occasional [id number] Information not available 04/14/2022 Mental Status Question Answer Note LastModified by Organization D etails LastModified Time Do you have difficulty concentrating, remembering or making decisions? No Information no t available 10/25/2022 Family History Relationship Description Onset Age of this Age Resolved Age Notes LastModified by Organization Details LastModified Time Mother Hypertensive disorder [id number] Not available 04/14/2022 04:42:55 Father Malignant tumor of colon Not available 2022 14:15:44 Medical History Condition Response LUNG DISEASE/DISORDER Y HEARTBURN / REFLUX Y HYPERTENSION Y Immunizations Vaccine Type Date Status Note Provider Nam e and Address Organization Details Recorded Time Influenza, adjuvanted, quadrivalent, PF 3 completed TRACY Cherry - [facility] 11/15/2022 13:03:36 influenza, unspecified formulation 0 completed Not Available [facility] 04/14/2022 05:03:15 Influenza, split virus, quadrivalent, preservative 9 completed Not Available [facility] 04/14/2022 05:03:15 Influenza, split virus, quadrivalent, preservative 1 completed Not Available [facility] 04/14/2022 05:03:15 COVID-19, mRNA, LNP-S, PF, 100 mcg/0.5mL dose or 50 mcg/0.25mL dose 1 completed Not Available [facility] 04/14/2022 05:03:15 COVID-19, mRNA, LNP-S, PF, 100 mcg/0.5mL dose or 50 mcg/0.25mL dose 1 completed Not Available [facility] 04/14/2022 05:03:15 influenza, unspecified formulation 8 completed Not Available [facility] 05:03:15 Past Encounters Encounter ID Performer Location Encounter Start Date Encounter Closed Date Diagnosis/Indication Diagnosis SNOMED-CT Code Diagnosis ICD10 Code Diagnosis Note [id number] [facility] [place] [address] [place] [address] 06/04/2020 00:00:00 06/04/2020 13:30:56 [id number] [facility] [place] [address] [place] [address] 08/04/2020 00:00:00 08/04/2020 13:39:56 [id number] [facility] [place] [address] [place] [address] 10/10/2020 00:00:00 10/10/2020 13:45:47 [id number] [facility] [place] [address] [place] [address] 11/06/2020 00:00:00 11/06/2020 23:43:19 [id number] MARNIE Hernandez [facility] [place] [address] [place] [address] 01/07/2021 00:00:00 01/09/2021 20:36:22 [id number] [facility] [place] [address] [place] [address] 01/26/2021 00:00:00 01/26/2021 14:01:39 [id number] [facility] [place] [address] [place] [address] 07/15/2021 00:00:00 07/15/2021 13:52:09 [id number] MARNIE Hernandez [facility] [place] [address] [place] [address] 01/11/2022 00:00:00 01/11/2022 20:07:19 [id number] SUE Mitchell [facility] [place] [address] [place] [address] 01/15/2022 00:00:00 01/15/2022 13:15:08 [id number] Rosalia Guerrero [facility] [place] [address] [place] [address] 07/30/2022 15:11:13 07/30/2022 17:35:54 Long-term drug therapy 175723425 Z79.899 Daliresp Severe chr onic obstructive pulmonary disease 627501319 J44.9 PFT 02/2020 at [facility] with FEV1:FVC ratio 73%.FEV1 65% with 3% increase post-bronc hodilator. TLC 110%, RV 142%Repeat 07/2022 with ratio 40 and DLCO 53Graphs requested by staffTried and failed Symbicort, Spiriva, Asmanex, and Stiolto.Co ntinue to use Trelegy Ellipta 100 and budesonide per nebulizer, this has kept him stable and I continue to recommend this as his inhaled therapy regimen.Al buterol PRN - discussed indication s for useAzithro mycin 250 three times per weekLFT testing, consider daliresp, he has had 3 exacerbati ons in the last 6 monthsWe discussed reportable signs and symptomsSt art pulmonary rehabRTC in 1-2 months, PRN for concerns Solitary n odule of lung 356799943 R91.1 LLL subpleural nodule measuring 5 mm has been stable since 12/2017.Re peat completed 06/2022No new nodule, mass, enlarged lymph nodes Pulmonary emphysema 8743 3001 J43.9 Six minute walk completed, he does not require oxygen Dyspnea on exertion 6084 5006 R06.09 RAST, IGE, Alpha 1, Quantifero n GOLD, IGG and subclasses all normalHigh resolution images on CT chest with no signs of ILDPR as above Chronic cough 95259672 R 05.3 Inhaled therapy as above [id number] [facility] [place] [address] [place] [address] 09/10/2022 10:39:15 09/10/2022 11:44:40 Severe chronic obstructive pulmonary disease 329444181 J44.9 PFT 02/2020 at [facility] with FEV1:FVC ratio 73%.FEV1 65% with 3% increase post-bron hodilator. TLC 110%, RV 142%Repeat 07/2022 with ratio 40 and DLCO 53Graphs requested by staffTried and failed Symbicort, Spiriva, Asmanex, and Stiolto.Co ntinue to use Trelegy Ellipta 100 and budesonide per nebulizer, this has kept him stable and I continue to recommend this as his inhaled therapy regimen.Al buterol PRN - discussed indication s for useAzithro mycin 250 three times per weekDecrea se daliresp to 250mg dailyWe discussed reportable signs and symptomsCo ntinue pulmonary rehabRTC in 2 months, PRN for concerns Pulmonary emphysema 8743 3001 J43.9 Six minute walk completed 07/2022, he does not require oxygen Long-term drug therapy 220566595 Z79.899 Daliresp 250 dailyCheck LFT in October - last LFT 07/2022 normal Solitary n odule of lung 130238046 R91.1 LLL subpleural nodule measuring 5 mm has been stable since 12/2017.Re peat completed 06/2022No new nodule, mass, enlarged lymph nodes Dyspnea on exertion 6084 5006 R06.09 RAST, IGE, Alpha 1, Quantifero n GOLD, IGG and subclasses all normalHigh resolution images on CT chest with no signs of ILDPR as above Chronic cough 22585617 R 05.3 Inhaled therapy as above [id number] Rosalia Guerrero, [facility] [place] [address] [place] [address] 10/25/2022 14:14:33 10/25/2022 14:43:01 Severe chronic obstructive pulmonary disease 168379599 J44.9 CAT 6PFT 02/2020 at [facility] with FEV1:FVC ratio 73%.FEV1 65% with 3% increase post-bron hodilator. TLC 110%, RV 142%Repeat 07/2022 with ratio 40 and DLCO 53Graphs requested by staffTried and failed Symbicort, Spiriva, Asmanex, and Stiolto.Co ntinue to use Trelegy Ellipta 100 and budesonide per nebulizer, this has kept him stable and I continue to recommend this as his inhaled therapy regimen.Al buterol PRN - discussed indication s for useAzithro mycin 250 three times per weekDalire sp 250mg dailyWe discussed reportable signs and symptomsCo ntinue pulmonary rehabRTC in 2 months, PRN for concerns Pulmonary emphysema 8743 3001 J43.9 Six minute walk completed 07/2022, he does not require oxygen Long-term drug therapy 803261975 Z79.899 Daliresp 250 dailyLFT 10/2022 normal Solitary n odule of lung 401937201 R91.1 LLL subpleural nodule measuring 5 mm has been stable since 12/2017.Re peat completed 06/2022 with no changesNo new nodule, mass, enlarged lymph nodesNext due 06/2023 Dyspnea on exertion 6084 5006 R06.09 RAST, IGE, Alpha 1, Quantifero n GOLD, IGG and subclasses all normalHigh resolution images on CT chest with no signs of ILDContinu e SD Chronic cough 66130561 R 05.3 Inhaled therapy as above [id number] MARNIE Hernandez [facility] [place] [address] [place] [address] 01/11/2023 10:40:40 01/11/2023 11:49:45 Adult health examination 615305640 Z00.00 mawe and routine appts completed Screening for disorder 257586280 Z13.9 Hyperlipidemia 50613941 E78.5 stable on atorvastat in 20mg daily. labs are completed at the [facility] Benign ess ential hypertension 8202048 I10 stable no losartan 50mg daily. BP is bit raised today but all home numbers reported have been normal. 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 follows with cardiology Long-term drug therapy 012814471 Z79.899 Health Concerns Section Related Observation LastModified by Organization Detai ls LastModified Time None Recorded Concern Status LastModified by Organization Details LastModified Time None Recorded Advance Directives Directive Y: Payers Encounter Date Sequence Insurance Name Policy Number Policy Pride Covered Member ID Pride Member ID Guarantor Name 07/30/2022 1 [place] Lawrence W Clanin [id number] Lawrence Clanin 07/30/2022 2 [employer] OPTIONS (MEDICARE SUPPLEMENT) Lawrence Clanin [id number] Lawrence Clanin 09/10/2022 1 [place] Lawrence W Clanin [id number] Lawrence Clanin 09/10/2022 2 [employer] OPTIONS (MEDICARE SUPPLEMENT) Lawrence Clanin [id number] Lawrence Clanin 10/25/2022 1 [place] Lawrence W Clanin [id number] Lawrence Clanin 10/25/2022 2 [employer] OPTIONS (MEDICARE SUPPLEMENT) Lawrence Clanin [id number] Lawrence Clanin 01/11/2023 1 [place] Lawrence W Clanin [id number] Lawrence Clanin 01/11/2023 2 [employer] OPTIONS (MEDICARE SUPPLEMENT) Lawrence Clanin [id number] Lawrence Clanin Notes Date Note Type Note Provider Name and Address Organization Details Recorded Time 07/30/2022 text/html Mr Cher quijano ts today for follow up on COPD, lung nodule, dyspnea on exertion, cough. emphysema, testingHad another respiratory illness starting in April, lasted multiple weeks.He is mildly improved.3 exacerbations in the last 6 months.Denies hemoptysis and chest painNo enlarged lymph nodes or sore throat.Compliant with Trelegy Ellipta 100 daily and budesonide BID, although this is not on an affordable tier from his insuranceHas not increased nebulizer use.No wheezing currentlyIs not waking at night R/T respiratory symptoms.He continues to travel back and forth to [place], unsure if he will go in septemberHe is compliant with Azithromycin 250 mg three times weekly SUE Mitchell [address], [place], [address], [employer] 08/02/2022 15:04:49 09/10/2022 text/html Mr Cher quijano ts today for follow up on COPD, lung nodule, dyspnea on exertion, cough. emphysema, new medicationsHe has been significantly more active and is walking about 4 miles per dayHe is participating in pulmonary rehabDoes not feel as congested since starting Daliresp but has some appetite changes and is concerned about the side effects R/T depression3 exacerbations in the last 8 months.Denies hemoptysis and chest painNo enlarged lymph nodes or sore throat.Compliant with Trelegy Ellipta 100 daily and budesonide BIDRare albuterol useNo wheezing currentlyIs not waking at night R/T respiratory symptoms.He is compliant with Azithromycin 250 mg three times weekly JOHN Mitchell [address], [place], [address], [employer] 09/10/2022 14:11:00 10/25/2022 text/html Mr Cher quijano ts today for follow up on COPD, lung nodule, dyspnea on exertion, cough, emphysema, medicationsHe has been significantly more active and is walking about 5 miles per dayREports that he feels significantly improved with exerciseStamina is betterHe is participating in pulmonary rehabOn Daliresp 250 daily3 exacerbations in the last 10 months.Denies hemoptysis and chest painNo enlarged lymph nodes or sore throat.Compliant with Trelegy Ellipta 100 daily and budesonide BID - this has provided best clinicalRare albuterol useNo wheezing currentlyIs not waking at night R/T respiratory symptoms.He is compliant with Azithromycin 250 mg three times weeklyReports activity levels are significantly improved SUE Mitchell [address], [place], [address], [employer] 10/25/2022 16:32:51 01/11/2023 text/html COPDReported bypatient.Severity:se brant Duration:has noted for years; constant Onset/Timing:chronic: has not changed Context:occupational exposure Modifying Factors:relieved with bronchodilatorNotes:Onesimo Garay has lost 20 pounds, walks 5 miles per day and completed Cardiopulmonary rehab which has been terrific for him.HyperlipidemiaRep orted bypatient.Duration:ch ronic Control:usually well controlled Compliance:compliant; compliant with diet; exercises Complications:no coronary artery disease; no peripheral artery disease; no cardiovascular disease Risk Factors:hypertensionH ypertensionReported bypatient.Duration:barney s noted for years Onset/Timing:better Alleviating Factors:medication Associated Symptoms:no shortness of breath; no fatigue; no palpitations; no decline in exercise capacity; no snoring MARNIE Hernandez [address] [facility], [facility] [address], [place], [address], [place] [facility] [employer] 01/11/2023 23:11:40
--- OUTSIDE RECORDS SUMMARY | 2024-06-19 14:35 | XMS_ITS | Patient Health Record ---
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 Name Role Phone Vita Schneider Primary Care Provider Unavailab shay Sg Leivaquelyn Unavailable [phone] Allergies No Known Allergies Results Component Value Reference Range Notes -Respiratory Allergens w/Tot al IgE Area 8 Reviewed date:11/14/2023 02:11:45 PM Interpretation:Normal Performing Lab:[facility], [address] [place] [id number], Phone - [phone], Director - Rojelio Notes/Report: Class Description Levels of Specific IgE Class Description of Class ----- < 0.10 0 Negative 0.10 - 0.31 0/I Equivocal/Low 0.32 - 0.55 I Low 0.56 - 1.40 II Moderate 1.41 - 3.90 III High 3.91 - 19.00 IV Very High 19.01 - 100.00 V Very High >100.00 Very High Immunoglobulin E, Total 52 6-495 IU/mL K770-JpS D pteronyssinus <0.10 Class 0 kU/L H828-DdK D farinae <0.10 Class 0 kU/L X362-KsE Cat Dander <0.10 Class 0 kU/L P100-CgE Dog Dander <0.10 Class 0 kU/L Z391-XmU Mouse Urine <0.10 Class 0 kU/L R379-KtZ B[place] Grass <0.10 Class 0 kU/L C274-NfI [place] Grass <0.10 Class 0 kU/L Z256-XoA Cockroach, Kyrgyz <0.10 Class 0 kU/L X939-VoW Penicillium chrysogen <0.10 Class 0 kU /L Q160-JwR Cladosporium herbarum <0.10 Class 0 kU /L D908-GtR Aspergillus fumigatus <0.10 Class 0 kU /L K100-TdQ Alternaria alternata <0.10 Class 0 kU/ L P928-KoL Maple/Ninety Six <0.10 Class 0 kU/L F807-BxG Cocke, Mountain <0.10 Class 0 kU/L G088-IhI [place], White <0.10 Class 0 kU/L R633-QbH Elm, Palestinian <0.10 Class 0 kU/L S035-InY [place] <0.10 Class 0 kU/L F276-LlV Maple [place] Terry <0.10 Class 0 kU/L I789-TwM [place] <0.10 Class 0 kU/L N317-HkV David, White <0.10 Class 0 kU/L D605-QuP Pecan, [place] <0.10 Class 0 kU/L O071-UkM [place] <0.10 Class 0 kU/L X168-YhM Ragweed, Short <0.10 Class 0 kU/L U052-CtF Thistle, Singaporean <0.10 Class 0 kU/L E675-UsD Pigweed, Common <0.10 Class 0 kU/L W400-QnO Rough Marshelder <0.10 Class 0 kU/L ABN Option 3 Reviewed date:10/27/2023 12:48:58 PM Interpretation:Interpretation Performing Lab:[facility], [address] [place] [id number], Phone - [phone], Director - Jose Angel Notes/Report: ABN Option 3 One or more tests were removed at the request of the patient and may not be represented on this report. As a result, some or all of the tests originally requested may not have been performed or may be reported separately. Please contact your patient regarding any necessary follow-up. -Tryptase ([id number]) Reviewed date:10/27/2023 12:48:30 PM Interpretation:Normal Performing Lab:[facility], [place], [place] [id number], Phone - [phone], Director - Rojelio Notes/Report: Tryptase 9.0 2.2-13.2 ug/L -CMP (14) Reviewed date:10/27/2023 12:48:45 PM Interpretation:Normal Performing Lab:[facility] [address] [id number], Phone - [phone], Director - Jose Angel Notes/Report: Glucose 92 70-99 mg/dL BUN 19 8-27 mg/dL Creatinine 1.13 0.76-1.27 mg/dL eGFR 69 >59 mL/min/1.73 BUN/Creatinine Ratio 17 10-24 Sodium 136 134-144 mmol/L Potassium 5.0 3.5-5.2 mmol/L Chloride 99 96-106 mmol/L Carbon Dioxide, Total 23 20-29 mmol/L Calcium 9.6 8.6-10.2 mg/dL Protein, Total 6.4 6.0-8.5 g/dL Albumin 4.3 3.8-4.8 g/dL Globulin, Total 2.1 1.5-4.5 g/dL Bilirubin, Total 1.1 0.0-1.2 mg/dL Alkaline Phosphatase 88 44-121 IU/L AST (SGOT) 17 0-40 IU/L ALT (SGPT) 21 0-44 IU/L -Sedimentation Rate-Westergr en Reviewed date:10/27/2023 12:49:59 PM Interpretation:Normal Performing Lab:[facility] [address] [id number], Phone - [phone], Director - Jose Angel Notes/Report: Sedimentation Rate-Westergren 2 0-30 mm/hr -CBC With Differential/Plate let Reviewed date:10/27/2023 12:49:17 PM Interpretation:Normal Performing Lab:[facility] [address] [id number], Phone - [phone], Director - Jose Angel Notes/Report: WBC 10.7 3.4-10.8 x10E3/uL RBC 4.50 4.14-5.80 x10E6/uL Hemoglobin 14.5 13.0-17.7 g/dL Hematocrit 43.6 37.5-51.0 % MCV 97 79-97 fL MCH 32.2 26.6-33.0 pg MCHC 33.3 31.5-35.7 g/dL RDW 12.1 11.6-15.4 % Platelets 325 150-450 x10E3/uL Neutrophils 72 Not Estab. % Lymphs 17 Not Estab. % Monocytes 8 Not Estab. % Eos 1 Not Estab. % Basos 0 Not Estab. % Neutrophils (Absolute) 7.7 1.4-7.0 x10E3/uL Lymphs (Absolute) 1.8 0.7-3.1 x10E3/uL Monocytes(Absolute) 0.8 0.1-0.9 x10E3/uL Eos (Absolute) 0.2 0.0-0.4 x10E3/uL Baso (Absolute) 0.0 0.0-0.2 x10E3/uL Immature Granulocytes 2 Not Estab. % Immature Grans (Abs) 0.2 0.0-0.1 x10E3/uL (An elevated percentage of Immature Granulocytes has not been found to be clinically significant as a sole clinical predictor of disease. Does NOT include bands or blast cells. associated physiological leukocytosis may also show increased immature granulocytes without clinical significance.) Reason For Referral No Information Medications Medication SIG (Take, Route, Frequency, Duration) Notes Start Date End Date Status Loratadine 10 MG 1 tablet Orally Once a day Active Apixaban 5 MG as directed Orally Not-Taking predniSONE 10 MG Oral for 12 Days Active hydrOXYzine HCl 25 MG 1 tablet as needed Orally Once a day Not-Taking guaiFENesin ER 600 MG 1 tablet as needed Orally every 12 hrs Not-Taking Mucinex 600 MG 1 tablet as needed Orally every 12 hrs Not-Taking Losartan Potassium 50 MG 1 tablet Orally Once a day Active predniSONE 10 MG 4 tablets once a day for 2 days, 3 tablets once a day for 2 days, 2 tablets once a day for 2 days, 1 tablet once a day for 2 days Orally Once a day Not-Taking Albuterol Sulfate HFA 108 (90 Base) MCG/ACT 1 puff as needed Inhalation every 4 hrs Active Montelukast Sodium 10 MG 1 tablet Orally Once a day Not-Taking Metoprolol Tartrate 25 MG 1 tablet with food Orally Twice a day Active NAC 600 MG 1 capsule Orally Onc e a day Active Atorvastatin Calcium 20 MG 1 tablet Orally Once a day Not-Taking Trelegy Ellipta 100-62.5-25 MCG/ACT 1 puff Inhalation Once a day Active Daliresp 250 MCG 1 tablet Orally Once a day Active FiberCon 625 MG 2 tablets as needed Orally Three times a day Active Citalopram Hydrobromide 10 MG 1 tablet Orally Once a day Not-Taking Famotidine 40 MG 1 tablet as needed Orally Twice a day Active Abiola Hives 24HR 180 MG 1 tablet Swall ow whole with water; do not take with fruit juices. Orally twice a day for 90 days Active Social History Tobacco Use: Social History Observation Description Date Details (start date - stop date) Former Smoker NA - NA Tobacco Control (Standard) Question Answer Notes Tobacco use: Former smoker Problems Problem Type SNOMED Code ICD Code Onset Dates Problem Status W/U Status Risk Notes Problem Chronic allergic conjunctivitis (69573555) Other chronic allergic conjunctivitis (H10.45) Active confirmed Problem Allergic rhinitis caused by pollen (disorder) (62362346) Allergic rhinitis due to pollen (J30.1) Active confirmed Problem Chronic rhinitis (J31.0) Active confirmed Vital Signs Oximetry 97 % 01/25/2024 Blood pressure diastolic 78 mm Hg 01/25/2024 Height 67 in 01/25/2024 Blood pressure systolic 134 mm Hg 01/25/2024 Weight 154 lbs 01/25/2024 BMI 24.12 kg/m2 01/25/2024 Encounters Encounter Location Date Provider Diagnosis [facility] [address] [facility] [employer] [address] [address] 10/18/2023 Barb Leiva Dermatographic urticaria L50.3 [facility] [address] [facility] [employer] [address] [place] [address] 11/01/2023 Barb Leiva Dermatographic urticaria L50.3 ; Other chronic allergic conjunctivitis H10.45 ; Chronic rhinitis J31.0 and Allergic rhinitis due to pollen J30.1 [facility] [address] [facility] [employer] [address] [place] [address] 11/29/2023 Barb Leiva Dermatographic urticaria L50.3 and Chronic rhinitis J31.0 [facility] [address] [facility] [address] [place] [address] 01/25/2024 Barb Leiva Dermatographic urticaria L50.3 and Chronic rhinitis J31.0 Assessments Encounter Date Diagnosis (ICD Code) Assessment Notes Treatment Notes Treatment Clinical Notes Section Notes 11/01/2023 Dermatographic urticaria (ICD-10 - L50.3) Unclear cause for recurrent pruritus. Labs showed normal CBC with differential, CMP, tryptase. Skin testing today was negative but negative histamine control. He has been holding all antihistamines. ImmunoCAPs ordered for further evalaution. Recommend started Xyzal 5 mg BID, Famotidine 40 mg BID and hydroxyzine at night. Hydroxyzine was prescribed by PCP. His daughter is concerned about anxiety and we discussed talking to PCP about medications. We discussed that Xolair can be started if no improvement with antihistamines and anxiety becomes under control. 11/29/2023 Chronic rhinitis (ICD-10 - J31.0) Given the history and symptoms, ImmunoCAPs were performed to common aeroallergens to determine atopic status. ImmunoCAPs were negative. 11/29/2023 Dermatographic urticaria (ICD-10 - L50.3) Unclear cause for recurrent pruritus. Labs showed normal CBC with differential, CMP, tryptase. Skin testing was negative but negative histamine control. ImmunoCAPs were negative. Recommend holding atorvastatin for a full 2 weeks followed by 2 weeks of losartan if no change. He has started Citralopram for anxiety. Recommend starting Abiola BID, Famotidine 40 mg BID and hydroxyzine at night. Consider Xolair, but no recent hives. just itching. Moisturizer recommended. 01/25/2024 Chronic rhinitis (ICD-10 - J31.0) Given the history and symptoms, ImmunoCAPs were performed to common aeroallergens to determine atopic status. ImmunoCAPs were negative. 01/25/2024 Dermatographic urticaria (ICD-10 - L50.3) Unclear cause for recurrent pruritus. Labs showed normal CBC with differential, CMP, and tryptase. Skin testing was negative but negative histamine control. ImmunoCAPs were negative. Recommend holding fish oil and several vitamins individually for 2-3 weeks at a time. Minimal improvement with antihistamines but start Abiola, Famotidine and Hydroxyzine as needed. Discuss Losartan with Account Support Associate before considering holding. Moisturizer recommended. He is following with Dermatology at [facility] and planning to be evaluated by their new itch specialist. 10/18/2023 Dermatographic urticaria (ICD-10 - L50.3) Unclear cause for recurrent pruritus. Labs ordered as above for further evaluation. No improvement with antihistamines and will return in 2 weeks for skin testing after holding for 5 days. We discussed patch testing, but would need to be off steroids for 4 weeks and rash is not consistent with contact dermatitis. Start a trial of Xyzal 5 mg BID and famotidine 40 mg BID 11/01/2023 Other chronic allergic conjunctivitis (ICD-10 - H10.45) 11/01/2023 Chronic rhinitis (ICD-10 - J31.0) 11/01/2023 Allergic rhinitis due to pollen (ICD-10 - J30.1) 10/18/2023 Other 11/01/2023 Other 11/29/2023 Other 01/25/2024 Other Plan Of Treatment Pending Test Test Name Order Date -Immunoglobulin E, Total 11/01/2023 -TSH Rfx on Abnormal to Free T4 10/18/19 24 -Respiratory Allergens w/Total IgE Area 8 10/18/2023 Insurance Providers Payer Name Payer Address Payer Phone Subscriber Number Group Number Insured Name Patient Relationship to Insured Coverage Start Date Coverage End Date [employer] (Medicare) Attention Claims [address] [facility] [place] [address] [id number] Lawrence Kwon Self - patient is the insured [facility] [address] [place] [address] [id number] Lawrecne Kwon Self - patient is the insured Medical (General) History Medical History History ICD Code Hypertension COPD Zoster without complications B02.9 Surgical History Surgery Date(Month/Year) Hernia surgery Cardiac ablation 09-02-2023 Hospitalization History Reason Date(Month/Year) above surgeries
--- OUTSIDE RECORDS SUMMARY | 2024-06-19 14:35 | XMS_ITS | Continuity of Care Document ---
Author Organization Formerly [facility]. If a dditional information is needed, contact Health Information Management at [phone] Address [address] [place] [address] Phone Care Team Providers Care Lead Enterprise Architect Name Role Phone Unavailable Unavailable Unavailable Unavailable Unavailable Unavailable Unavailable Unavailable Unavailable Unavailable Unavailable Unavailable Unavailable Problems Chronic obstructive pulmonar y disease, unspecified Onset:02-May-2023 Chronic obstructive pulmonar y disease Onset:02-Mar-2020 MAKEDA Cartre III, MD Acute exacerbation of chroni c obstructive pulmonary disease Onset:02-Mar-2020 MAKEDA Carter III, MD Other chronic obstructive pu lmonary disease Elevated blood-pressure read ing, without diagnosis of hypertension Allergies and Adverse Reactions No Known Allergies(Allergy) Onset: 29-Nov-2012 No Known Allergies(Allergy) Medications fluticasone propionate 0.05 MG/ACTUAT Metered Dose Nasal [place];50 mcg/actuation NASAL 1d Quantity:16 Start:08-May-2024 Comments:fluticasone propionate predniSONE 20 MG Oral Tablet ;20 mg NOT APPLICABLE 1d Quantity:10 Start:08-May-2024 Comments:prednisone levoFLOXacin 750 MG Oral Tablet;750 mg NOT APPLICABLE 1d Quantity:5 Start:08-May-2024 Comments:levofloxacin predniSONE 20 MG Oral Tablet;prednisone Quantity:18 Start:02-May-2023 Status:Inactive Comments:prednisone prednisone;prednisone Quantity:10 Start:28-Mar-2023 Comments:prednisone benzonatate;benzonatate Quantity:30 Start:28-Mar-2023 Status:Prior History Comments:benzonatate metoprolol tartrate;metoprol ol tartrate Quantity:180 Start:02-Dec-2022 Comments:metoprolol tartrate budesonide;budesonide Quantity:60 Start:09-Aug-2022 Comments:budesonide Trelegy Ellipta;Trelegy [place] [employer] Quantity:60 Start:30-Jul-2022 Comments:Trelegy Ellipta roflumilast;roflumilast Quantity:30 Start:30-Jul-2022 Comments:roflumilast losartan potassium;losartan potassium Quantity:90 Start:23-Apr-2022 Comments:losartan potassium Albuterol 0.83 MG/ML / Ipratropium [place] 0.17 MG/ML Inhalant Solution;3 MILLILITER INHALATION Q10M PRN Quantity:1 MAKEDA Carter III, MD Start:02-Mar-2020 Status:Discontinued Comments:[id number] Administration Instructions:Duoneb 3 ml may repeat times X 3 hydroCHLOROthiazide 12.5 MG / losartan potassium 50 MG Oral Tablet [Hyzaar];1 TABLET ORAL DAILY Start:29-Nov-2012 Comments:1 TAB PO DAILY Procedures Dexamethasone sodium phos Date:09-May-19 Status:Completed THER/PROPH/DIAG INJ SC/IM Date:09-May-19 Status:Completed Social History Smoking Status Ex-smoker Recorded: 02-Mar-2020 Ex-smoker Vital Signs 08-May-2024 10:13 BP Sjowbgbg577ys[Hg] BP Agiulhzog90il[Hg] Pulse93{beats}/min Ucashuabmxe02.5f O2 SAT94% BMI24.3kg/m2 Jahqws93dj Vcaaub424pv 08-May-2024 10:13 BP Vtswcqyz553xj[Hg] BP Znmodwphz99hh[Hg] Pulse93{beats}/min Kjyqyvticnp11.5f O2 SAT94% BMI24.3kg/m2 Pggrmu71uz Yllhpz609ia Encounters Ambulatory Encounter Diagnosis:Rhinitis,Acute exacerbation of chronic obstructive pulmonary disease 08-May-2024 KATHI JORGE (Attending) [facility] 02-May-2023 HILDA RUTLEDGE (Attending) [facility] Goal Instructions Future Appointment Date Kathi Jorge Address: [address] [place] [id number] TESTS Test Name Status Date
--- OUTSIDE RECORDS SUMMARY | 2024-06-19 14:35 | XMS_ITS | Data Portability ---
Author Organization [facility] Address [address] [place] [address] Care Team Providers Care Compensation Specialist Name Role Phone HUSSEIN HOWARD Ext Js Developer RACHANA JEONG Radiation Control Specialist WAI YBRD Urologist Assessment No assessment recorded. Plan of Treatment Reminders Order Date Submit Date Provider Last Modified By Organization Details Last Modified Time Details Appointments None recorded. Lab None recorded. Referral None recorded. Procedures None recorded. Surgeries None recorded. Imaging None recorded. Medication Orders lidocaine 5 % topical patch 2023 024 ANDREIA [facility]/Pharmacy #[id number], [address] [place], [address], 14:41:55 citalopram 10 mg tablet 2023 024 [email or web address] [facility]/Pharmacy #[id number], [address] [place], [address], 13:46:58 Patient TargetsNo targets recorded. 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 tonsilar asymmetry/enlarged/abnormal. failed abx/steroid Referring Physician: Vita Schneider, Internal Medicine, Encounter Date: 06/15/2024 Results Created Date Observation Date Name Description Value Unit Range Abnormal Flag Note LastModifiedBy Organization Detail LastModifiedTime 11/30/19 24 11/30/2023 XR, chest , 2 view No observ ation record ed. [email or web address] [facility] [address], [place], [address], 11/30/2023 14:23:54 Result Notes None recorded. Problems Name Problem SNOMED Code Status Onset Date Resolution Date Notes Provider Name and Address Organization Details Recorded Time Benign essential hypertension 8434493 Active 2023 MARNIE Hernandez Attn: Accountin g,[address], [place], [address], [place] [facility] 4 10:24:01 Hyperlipidemia 31209038 Active 2023 MARNIE Hernandez Attn: Accountin g,[address] [facility], [place], [address], [place] [facility] 4 10:24:02 Chronic obstructive pulmonary disease 00220845 Active 2023 MARNIE Hernandez Attn: Accountin g,[address] [facility], [place], [address], [place] [facility] 4 10:24:03 Multiple premature ventricular complexes 283357451 Active 2023 MARNIE Hernandez Attn: Accountin g,[address] [facility], [place], [address], [place] [facility] 4 10:24:21 Generalized pruritus 894930098 Active 2023 MARNIE Hernandez Attn: Accountin g,[address], [place], [address], [place] [facility] 4 09:02:18 Anxiety 53664473 Active 2023 MARNIE Hernandez Attn: Accountin g,[address] [facility], [place], [address], [place] [facility] 4 09:02:20 Long-term drug therapy Active 2023 MARNIE Hernandez Attn: Andrew de leon,[address], [place], [address], [place] [facility] 4 09:02:33 Prostate specific antigen above reference range 506764937 Active 2023 MARNIE Hernandez Attn: Andrew g,[address], [place], [address], [place] [facility] 4 09:17:00 Post-herpetic trigeminal neuralgia 30309474 Active 2023 MARNIE Hernandez Attn: Andrew g,[address], [place], [address], [place] [facility] 4 09:17:02 Body mass index 20-24 - normal 117780964 Active 2024 Hodan Posadas MA null, [place] - [facility] 16:20:13 Problem Notes None recorded. Procedures Surgical History Date Name Laterality Status Provider Name and Address Organization Details Recorded Time catheter ablation of tissue of heart completed Hodan Posadas [place] - [facility] 06/15/2024 16:20:53 Hernia Repair completed Dilia Bang MA [place] - [facility] 06/13/2023 09:55:21 Knee Surgery completed Dilia Bang MA [place] - [facility] 06/13/2023 09:55:29 Prostate Biopsy completed Dilia Bang MA [place] - [facility] 06/13/2023 09:55:35 Imaging Results Imaging Date Name Status LastModified by Organiz ation Details LastModified Time 11/30/2023 XR, chest, 2 view completed [address], [place], [address], 11/30/2023 14:23:54 Procedure Notes None recorded. Medical Equipment None Reported. Allergies No known drug allergies Medications Name Sig Start Date Stop Date Status Note LastModified by Organization Details LastModified Time losartan 50 mg tablet TAKE 1 TABLET BY MOUTH EVERY DAY active Not Available Not Available No t Available nystatin 100,000 unit/mL oral suspensio n SHAKE LIQUID AND TAKE 5 ML BY MOUTH FOUR TIMES DAILY FOR 14 DAYS FOR FUNGAL THROAT INFECTIO N active Not Available Not Available No t Available prednison e 10 mg tablet PLEASE SEE ATTACHED FOR DETAILED DIRECTIO NS 06/15 completed Not Available Not Available Not Available atorvasta tin 20 mg tablet Take 1 tablet every day by oral route. active Not Available Not Available No t Available famotidin e 10 mg tablet TAKE 1 TABLET BY MOUTH TWICE A DAY 12/21 completed Not Available Not Available Not Available azithromy sole 250 mg tablet TAKE 2 TABLETS BY MOUTH TODAY, THEN TAKE 1 TABLET DAILY FOR 4 DAYS DIRECTED 06/12 completed Not Available Not Available Not Available benzonata te 200 mg capsule TAKE 1 CAPSULE BY MOUTH THREE TIMES A DAY NEEDED FOR COUGH 06/12 completed Not Available Not Available Not Available citalopra m 10 mg tablet TAKE 1 TABLET BY MOUTH EVERY DAY active Not Available Not Available No t Available valacyclo vir 1 gram tablet TAKE 1 TABLET BY MOUTH EVERY 8 HOURS 12/21 completed Not Available Not Available Not Available prednison e 20 mg tablet TAKE 2 TABLETS BY MOUTH DAILY FOR 5 DAYS 06/15 completed Not Available Not Available Not Available ciproflox acin 500 mg tablet TAKE 1 TABLET BY MOUTH TWICE A DAY. START TAKING THE DAY BEFORE PROCEDUR E UNTIL FINISHED 06/15 completed Not Available Not Available Not Available doxycycli ne monohydra te 100 mg tablet TAKE 1 TABLET (100 MG) ORALLY TWICE A DAY FOR 7 DAYS 12/21 completed Not Available Not Available Not Available triamcino lone acetonide 0.1 % topical cream APPLY TO RASH TWICE DAILY UP TO 4 WEEKS, THEN TAKE A 2-WEEK BREAK active Not Available Not Available No t Available alprazola m 0.5 mg tablet TAKE 1 TABLET BY MOUTH ONCE NEEDED, TAKE 30 MINUTES BEFORE BIOPSY active Not Available Not Available No t Available prednison e 50 mg tablet TAKE 1 TABLET (50 MG) ORALLY DAILY 12/21 completed Not Available Not Available Not Available lidocaine 5 % topical patch PLEASE SEE ATTACHED FOR DETAILED DIRECTIO NS active Not Available Not Available No t Available metoprolo l tartrate 50 mg tablet TAKE 1 TABLET BY MOUTH TWICE A DAY 12/21 completed Dose changed Not Available Not Available Not Available hydrocort isone 2.5 % topical cream APPLY TO AFFECTED AREA TWICE A DAY NEEDED FOR ITCHING 11/14 completed Not Available Not Available Not Available monteluka st 10 mg tablet TAKE 1 TABLET BY MOUTH EVERY DAY 11/14 completed Not Available Not Available Not Available hydroxyzi ne HCl 25 mg tablet TAKE 1 TABLET BY MOUTH THREE TIMES A DAY NEEDED FOR ITCHING active Not Available Not Available No t Available levofloxa sole 750 mg tablet TAKE 1 TABLET BY MOUTH DAILY FOR 5 DAYS active Not Available Not Available No t Available methylpre dnisolone 4 mg tablets in a dose pack TAKE 6 TABLETS ON DAY 1 DIRECTED ON PACKAGE AND DECREASE BY 1 TAB EACH DAY FOR A TOTAL OF 6 DAYS 12/21 completed Not Available Not Available Not Available cefdinir 300 mg capsule Take 1 capsule every 12 hours by oral route. 2024 active Not Available Not Available Not Avai lable losartan 100 mg tablet TAKE 1 TABLET BY MOUTH EVERY DAY 06/12 completed Not Available Not Available Not Available fluticaso ne propionat e 50 mcg/actua tion nasal spray,aylin pension SHAKE LIQUID AND USE 2 SPRAYS IN EACH NOSTRIL DAILY FOR 14 DAYS active Not Available Not Available No t Available azithromy sole 500 mg tablet TAKE ONE TABLET BY MOUTH THREE TIMES WEEKLY DIRECTED active Not Available Not Available No t Available metoprolo l tartrate 25 mg tablet TAKE 1 TABLET BY MOUTH TWICE DAILY active Not Available Not Available No t Available budesonid e 1 mg/2 mL suspensio n for nebulizat ion PLEASE SEE ATTACHED FOR DETAILED DIRECTIO NS active Not Available Not Available No t Available Xyzal 5 mg tablet Take 1 tablet every day by oral route. 12/21 completed Not Available Not Available Not Available roflumila st 500 mcg tablet TAKE 1 TABLET BY MOUTH DAILY active Not Available Not Available No t Available Eliquis 5 mg tablet TAKE 1 TABLET BY MOUTH TWICE A DAY 11/14 completed Not Available Not Available Not Available Trelegy Ellipta 100 mcg-62.5 mcg-25 mcg powder for inhalatio n INHALE 1 PUFF BY MOUTH DAILY active Not Available Not Available No t Available roflumila st 250 mcg tablet Take 1 tablet every day by oral route for 28 days. 12/21 completed Dose changed Not Available Not Available Not Available Vitals Date Recorded Body height Body mass index (BMI) Body weight Heart rate Oxygen saturation Oxygen saturation in Arterial blood by Pulse oximetry Systolic blood pressure Diastolic blood pressure Provider Name and Address Organization Details Last Updated DateTime 4 170.18 cm 24.2 kg/m2 82072.6 6 g 63 /min 96 % 96 % 120 mm[Hg] 76 mm[Hg] Dilia Bang MA [facility] 09:57:47 Date Recorded Systolic blood pressure Diastolic blood pressure Systolic blood pressure Diastolic blood pressure Provider Name and Address Organization Details Last Updated DateTime 06/13/2023 138 mm[Hg] 80 mm[Hg] 140 mm[Hg] 80 mm[Hg] MARNIE Hernandez Attn: Accounting ,[address] [place], [address] , [facility] 10:17:38 Date Recorded Body height Body mass index (BMI) Body weight Respiratory rate Oxygen saturation Oxygen saturation in Arterial blood by Pulse oximetry Heart rate Systolic blood pressure Diastolic blood pressure Provider Name and Address Organization Details Last Updated DateTime 4 170.18 cm 24.2 kg/m2 03781.9 4 g 18 /min 96 % 96 % 60 /min 150 mm[Hg] 82 mm[Hg] Hodan Posadas MA [facility] 4 14:07:14 Date Recorded Systolic blood pressure Diastolic blood pressure Provider Name and Address Organization Details Last Updated DateTime 11/15/2023 140 mm[Hg] 80 mm[Hg] MARNIE Hernandez Attn: Accounting,[address] [place], [address], [facility] 11/15/2023 14:52:54 Date Recorded Body height Body mass index (BMI) Body weight Oxygen saturation Oxygen saturation in Arterial blood by Pulse oximetry Heart rate Systolic blood pressure Diastolic blood pressure Provider Name and Address Organization Details Last Updated DateTime 4 170.18 cm 23.5 kg/m2 65672.8 6 g 96 % 96 % 89 /min 140 mm[Hg] 82 mm[Hg] Hodan Posadas MA [facility] 13:53:42 Date Recorded Pain severity - 0-10 verbal numeric rating [Score] - Reported Provider Name and Address Organization Details Last Updated DateTime 12/22/2023 4 Love Bhat [facility] 12/22/2023 13:57:23 Date Recorded Respiratory rate Systolic blood pressure Diastolic blood pressure Provider Name and Address Organization Details Last Updated DateTime 12/22/2023 18 /min 134 mm[Hg] 82 mm[Hg] MARNIE Hernandez Attn: Accounting, [address] [place], [address], [facility] 12/22/2023 14:44:07 Date Recorded Body height Body mass index (BMI) Body weight Respiratory rate Oxygen saturation Oxygen saturation in Arterial blood by Pulse oximetry Heart rate Systolic blood pressure Diastolic blood pressure Provider Name and Address Organization Details Last Updated DateTime 170.18 cm 24.1 kg/m2 50897.2 2 g 18 /min 96 % 96 % 90 /min 130 mm[Hg] 82 mm[Hg] Hodan Posadas MA [facility] 16:22:47 Social History Question Answer Notes LastModified by [employer] ion Details LastModified Time Tobacco Smoking Status Former Smoker Hodan Posadas MA null, [facility] 06/10/2023 10:03:07 Do You Have An Advance Directive? Yes Information not available 06/10/2023 What Is Your Level Of Alcohol Consumption? None Former mebyma Information not available 06/13/2023 Are You Blind Or Do You Have Difficulty Seeing? No Information not available 06/10/2023 What Is Your Level Of Caffeine Consumption? Moderate 2 Cups Coffee A Day Information not available 12/22/2023 In The 14 Days Before Symptom Onset, Have You Had Close Contact With A Laboratory-confir med COVID-19 While That Case Was Ill? No Information not available 06/10/2023 In The 14 Days Before Symptom Onset, Have You Had Close Contact With A Person Who Is Under Investigation For COVID-19 While That Person Was Ill? No Information not available 06/10/2023 Have You Been To An Area Known To Be High Risk For COVID-19? No Information not available 06/10/2023 Are You Currently Employed? No Retired Information not available 12/22/2023 Are You Deaf Or Do You Have Serious Difficulty Hearing? No Information not available 06/10/2023 What Type Of Diet Are You Following? REGULAR Information not available 06/10/2023 What Is The Highest Grade Or Level Of School You Have Completed Or The Highest Degree You Have Received? [id number] Information not available 12/22/2023 Are There Any Guns Present In Your Home? Yes Information not available 06/10/2023 In The Past 7 Days, How Much Pain Have You [place]? Some Information not available 12/22/2023 In General, Would You Say You Health Is: Fair Information not available 12/22/2023 How Would You Describe The Condition Of Your Mouth And Teeth- Including False Teeth Or Dentures? Fair Information not available 12/22/2023 Each Night, How Many Hours Of Sleep Do You Get? 8 Information no t available 12/22/2023 Has Anyone Ever Told You That You Snore? Yes Information not available 12/22/2023 In The Past 7 Days, How Often Have You [place] Sleepy In The Daytime? Never Information not available 12/22/2023 # Alcohol Drinks Per Week 0 Information not available 12/22/2023 What Was The Date Of Your Most Recent Tobacco Screening? 06/15/2024 Information not available 06/15/2024 What Is Your Current Pack Years? 10packyears Information not available 06/10/2023 Do You Use Your Seat Belt Or Car Seat Routinely? Yes Information not available 06/10/2023 Do You Have Smoke And Carbon Monoxide Detectors In Your Home? Yes Information not available 06/10/2023 Do You Feel Stressed (tense, Restless, Nervous, Or Anxious, Or Unable To Sleep At Night)? [id number] Information not available 12/22/2023 Do You Use Any Illicit Or Recreational Drugs? No Information not available 06/10/2023 Do You Use Sunscreen Routinely? Yes Information not available 12/22/2023 Has Tobacco Cessation Counseling Been Provided? No Information not available 12/22/2023 On What Date Was Tobacco Cessation Counseling Provided? 06/15/2024 Information not available 06/15/2024 How Many Years Have You Smoked Tobacco? 30 Quit 10 Years Ago Information not available 12/22/2023 Do You Or Have You Ever Used Any Other Forms Of Tobacco Or Nicotine? No Information not available 06/10/2023 Sex: Male Functional Status Question Answer Note LastModified by Organization D etails LastModified Time Are you able to care for yourself? Yes Information not available 06/10/2023 What is your exercise level? Moderate Information not available 06/10/2023 Mental Status None recorded. Family History Relationship Description Onset Age of this Age Resolved Age Notes LastModified by Organization Details LastModified Time Mother Malignant tumor of breast mebyma Not available 2023 09:54:08 Mother Diabetes mellitus mebyma Not available 2023 09:54:21 Mother Hypertensive disorder mebyma Not available 2023 09:54:26 Father Malignant tumor of colon mebyma Not available 2023 09:54:14 Notes:no change Medical History Condition Response Coronary Artery Disease N Other Y Atrial Fibrillation N High Blood Pressure Y Depression N COPD Y Blood Clots N Anxiety Disorder Y Muscle, Joint, or Bone Problems N Acid Reflux (GERD) Y Cancer N Stroke N Headaches N Kidney or Bladder Problems N Have you had a mammogram in the last yea r? N Skin Problems N Asthma N Allergies N Have you had a PSA blood test in the las t year? Y Hepatitis N High Cholesterol N Liver Disease N Thyroid Problems N GI Problems N Anemia N Heart Attack (NM) N Diabetes N Seizures/Epilepsy N Have you had a colonoscopy in the last 1 0 years? Y Heart Failure N Osteoporosis N Immunizations Vaccine Type Date Status Note Provider Nam e and Address Organization Details Recorded Time Influenza, high-dose, quadrivalent, PF 0 completed Hodan [place] [facility] 12/21/2023 12:27:58 Influenza, high-dose, quadrivalent, PF 2 completed Hodan [place] [facility] 12/21/2023 12:27:58 Influenza, adjuvanted, quadrivalent, PF 3 completed Hodan [place] [facility] 12/21/2023 12:27:58 COVID-19, mRNA, LNP-S, PF, 100 mcg/0.5mL dose or 50 mcg/0.25mL dose 1 completed Hodan [place] [facility] 12/21/2023 12:27:58 COVID-19, mRNA, LNP-S, bivalent, PF, 30 mcg/0.3 mL dose 2 completed Hodan [place] [facility] 12/21/2023 12:27:58 COVID-19, mRNA, LNP-S, PF, anson-sucrose, 30 mcg/0.3 mL 3 completed CLIFF Cline, [place] [facility] 12/21/2023 12:27:58 Influenza, high-dose, trivalent, PF 7 completed Hodan [place] [facility] 12/21/2023 12:27:58 Influenza, high-dose, trivalent, PF 8 completed Hodan [place] [facility] 12/21/2023 12:27:58 Influenza, high-dose, trivalent, PF 4 [place] [facility] 12/21/2023 15:12:49 Tdap 2 completed [place] Bhat [place] [facility] 01/02/2024 15:28:48 zoster, unspecified formulation 1 completed [place] Bhat [place] [facility] 01/02/2024 15:29:10 pneumococcal polysaccharide PPV23 9 completed [place] Bhat [place] [facility] 01/02/2024 15:29:28 Pneumococcal conjugate PCV 13 5 completed [place] Bhat [place] [facility] 01/02/2024 15:29:42 Past Encounters Encounter ID Performer Location Encounter Start Date Encounter Closed Date Diagnosis/Indication Diagnosis SNOMED-CT Code Diagnosis ICD10 Code Diagnosis Note [id number] Nicholas Siddiqi MD [facility] [address] [place] [address] 06/13/2023 09:41:38 06/13/2023 10:28:51 Chronic obstructive pulmonary disease 38446224 J44.9 pt is on trelegy and budesonide via pulmonary. all refills need to come from them. Benign ess ential hypertension 3484797 I10 stable on metoprolol tartrate 50mg bid and losartan 50mg daily. Long-term drug therapy 654186875 Z79.899 Hyperlipidemia 50580319 E78.5 stable on atorvastat in 20mg daily. labs every fall with [facility] Multiple p remature ventricular complexes 259202087 I49.3 plans for ablation in august. . [id number] Nicholas Siddiqi MD [facility] [address] [place] [address] 11/15/2023 13:47:04 11/15/2023 15:00:59 Benign essential hypertension 6222518 I10 stable on metoprolol tartrate 50mg bid and losartan 50mg daily. Hyperlipidemia 31039877 E78.5 stable on atorvastat in 20mg daily. labs every fall with [facility] Chronic ob structive pulmonary disease 72895703 J44.9 pt is on trelegy and budesonide via pulmonary. all refills need to come from them. Multiple p remature ventricular complexes 325609199 I49.3 Stable on beta-block er therapy Long-term drug therapy 662372868 Z79.899 All labs are currently up-to-date with [facility] Anxiety 29174740 F41.9 Trial of low-dose citalopram 10 mg daily in case the generalize d pruritus is coming from underlying anxiety Generalized pruritus 276 854796 L29.9 Patient can continue to use his hydroxyzin e as directed. [id number] Nicholas Siddiqi MD [facility] [address] [place] [address] 12/22/2023 13:39:50 12/22/2023 14:50:02 Adult health examination 607136209 Z00.00 Health Risk Assessment collected and reviewed Generalized pruritus 276 177812 L29.9 STOP atorvastat in med until further notice. Post-herpe tic trigeminal neuralgia 28367450 B02.22 left side anterior chest and back Prostate s pecific antigen above reference range 567500738 R97.20 9.791 [facility] [address] Byrd labs. Benign ess ential hypertension 6178145 I10 stable on metoprolol tartrate 50mg bid and losartan 50mg daily. Chronic ob structive pulmonary disease 79721152 J44.9 pt is on trelegy and budesonide via pulmonary. all refills need to come from them. Hyperlipidemia 09098663 E78.5 stable on atorvastat in 20mg daily. labs every fall with [facility] Long-term drug therapy 630109525 Z79.899 All labs are currently up-to-date with [facility] [id number] Nicholas Siddiqi MD [facility] [address] [place] [address] 06/15/2024 16:11:46 06/18/2024 16:31:05 Body mass index 20-24 - normal 340195665 Z68.24 24.1 Tonsil asymmetry 2634187 03 J35.8 Health Concerns Section Related Observation LastModified by Organization Detai ls LastModified Time None Recorded Concern Status LastModified by Organization Details LastModified Time None Recorded Advance Directives Directive Y: Payers Encounter Date Sequence Insurance Name Policy Number Policy Pride Covered Member ID Pride Member ID Guarantor Name 06/13/2023 1 [place] Lawrence Clanin [id number] Lawrence Clanin 06/13/2023 2 [employer] OPTIONS (MEDICARE SUPPLEMENT) Lawrence Clanin [id number] Lawrence Clanin 11/15/2023 1 [place] Lawrence Clanin [id number] Lawrence Clanin 11/15/2023 2 [employer] OPTIONS (MEDICARE SUPPLEMENT) Lawrence Clanin [id number] Lawrence Clanin 12/22/2023 2 [employer] OPTIONS (MEDICARE SUPPLEMENT) Lawrence Clanin [id number] Lawrence Clanin 12/22/2023 [place] [facility] - [facility] Lawrence Kwon [id number] Lawrence Kwon Notes Date Note Type Note Provider Name and Address Organization Details Recorded Time 06/13/19 24 text/htm l COPDReported bypatient.Notes:pt is on trelegy and budesonide. he needs to get these refills from Pulmonary. he has appt tuesday with themHyperlipidemiaReported bypatient.Notes:on atorvastatin 20mg daily. UTD via the [facility] every fall.HypertensionReported bypatient.Notes:stable on metoprolol and losartan. 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 Cardiac of hx of PVC's that are so frequent. He has seen specialist after specialist. He just finished a 30 day event monitor. 14% PVCs. He is getting ablation september 01. MARNIE Hernandez Attn: Accounting,[address], [place], [address], [facility] 06/13/2023 10:24:36 11/15/19 24 text/htm l Had skin testing at [facility] that did not show any allergy on skin at all.Derm visit med trials did not help at all for the generalized pruritus. His family and polysomnograph tech are questioning if he could have underlying anxiety that is driving this. Patient also takes losartan 50 mg daily and metoprolol 50 mg twice daily for hypertension. Question if losartan could be causing delayed sensitivity reaction in the form of generalized pruritus ? Patient has underlying hyperlipidemia and takes statin therapy. Patient has underlying COPD and is followed by Pulmonary and is on an inhaler regimen as well as roflumilast 250 mcg daily. Patient has history of multiple PVC complexes in which he does take metoprolol and is managed. MARNIE Hernandez Attn: Accounting,[address], [place], [address], [facility] 12/05/2023 09:02:47 12/22/19 24 text/htm l MAW 2Reported bypatient.Diet and Nutrition:healthy diet Fracture Risk:no history of fractures; no sudden unexplained fractures Concentration and Memory:no decreased concentrating ability; no memory lapses or loss; does not forget words Speech/Motor difficulties:no speech difficulties; no difficulty expressing formulated concepts; no difficulty with fine manipulative tasks; no difficulty writing/copying; no slowed reaction time; does not knock things over when trying to pick them up Hearing:no loss of hearing Vision:worse with distance(glasses) Activities of Daily Living:able to bathe with limited or no assistance; able to contol urination and bowels; able to dress with limited or no assistance; able to feed self with limited or no assistance; able to get out of chair or bed with limited or no assistance; able to groom with limited or no assistance; able to toilet with limited or no assistance Instrumental Activities of Daily Living:able to do house work with limited or no assistance; able to grocery shop with limited or no assistance; able to manage medications with limited or no assistance; able to manage money with limited or no assistance; able to prepare meals with limited or no assistance; able to use the phone with limited or no assistance Falls Risk Assessment:no frequent falls while walking; no fall in the past year; no fall since last visit; no dizziness/vertigo Home Safety:no unsafe yoni hazzards; no unsafe stairs; working smoke/CO detectors; practicing 'safer sex'; no fire arms; has hand bars in the bathroom/shower; good lighting in the home MARNIE Hernandez Attn: Accounting,[address] [place], [id number], [facility] 01/09/2024 09:17:34
--- OUTSIDE RECORDS SUMMARY | 2024-06-19 14:35 | XMS_ITS | Continuity of Care Document ---
Author Name [facility] Organization [facility] Care Team Providers Care Induction Coordination Engineer Name Role Phone [facility] Unavailable Unavailable Problems Combined list of problems from Department of [facility] and [facility] facilities. It does not include entries that were removed or entered in error. Problem Status Onset Date Problem Type Date of Resolution Comments Source Benign essential hypertension (SNOMED CT 2485953) Active Condition [facility] Chronic obstructive pulmonary disease Active Condition [facility] Elevated PSA (SNOMED CT 698542876) Active Condition [facility] Family history of cancer of colon (SNOMED CT 406505162) Active Condition [facility] HYPERTENSION NOS Active Condition [facility] Polyp of colon Active Condition Dec 162018 Entered By: LISA GUARDADO Comment: Last colonoscopy January 2016, repeat January 2021 [facility] Tobacco use Active Condition Jan 05, 2019 Entered By: LISA GUARDADO Comment: total pack year hx >30, quit smoking 2014 [facility] Diagnosis: ICD-10-CM I10 Essential (primary) hypertension Active Diagnosis [facility] Diagnosis: ICD-10-CM L57.0 Actinic keratosis Active Diagnosis [facility] Diagnosis: ICD-10-CM Z23 Encounter for immunization Active Diagnosis [facility] Diagnosis: ICD-10-CM 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 Medication Details Route Status Patient Instructions Prescription Expires Prescription Number Last Dispense Date Ordering Provider Order Date Order Qty Source ALBUTEROL SO4 3MG/IPRATRO PIUM BR 0.5MG/3ML INHL,3ML INHALE 1 VIAL (3ML) BY NEBULIZA TION FOUR TIMES A DAY DIRECTED FOR COPD NEBULI ZATION ACTIVE 08/01/2024 [id number] CAMILLE VENTURA CAJAL 2023 360 [facility] ALBUTEROL SO4 3MG/IPRATRO PIUM BR 0.5MG/3ML INHL,3ML INHALE 1 VIAL (3ML) BY NEBULIZA TION FOUR TIMES A DAY DIRECTED FOR COPD NEBULI ZATION 06/20/2023 [id number] CAMILLE VENTURA CAJAL 2022 360 [facility] ALBUTEROL SO4 90MCG/ACTUA T (CFC-F) INHL,ORAL,8 .5GM INHALE 2 PUFFS BY ORAL INHALATI ON FOUR TIMES A DAY NEEDED FOR COPD SHAKE WELL. RINSE MOUTHPIE CE FREQUENT LY TO PREVENT CLOGGING . RESPIR ATORY (INHAL ATION) ACTIVE 02/24/2025 [id number] 5 CAMILLE VENTURA CAJAL 2024 3 [facility] ALBUTEROL SO4 90MCG/ACTUA T (CFC-F) INHL,ORAL,8 .5GM INHALE 2 PUFFS BY ORAL INHALATI ON FOUR TIMES A DAY FOR BREATHIN G. SHAKE WELL. RINSE MOUTHPIE CE FREQUENT LY TO PREVENT CLOGGING . RESPIR ATORY (INHAL ATION) 09/16/2023 [id number] 4 [facility] 4 [facility] ATORVASTATI N CA 40MG TAB TAKE ONE-HALF TABLET BY MOUTH EVERY EVENING FOR CHOLESTE ROL. REPORT ANY UNEXPLAI BRITANY MUSCLE PAIN/WEA KNESS TO PROVIDER . ORAL 02/16/2024 [id number] 4 [facility],MAR Y 2023 45 [facility] BUDESONIDE 160/GLYCOPY R 9/FORMOTER 4.8MCG/ACT INHL,ORAL,1 0.7GM INHALE 2 PUFFS INHALATI ON TWICE A DAY DIRECTED FOR COPD (CLEAN INHALER FOLLOWED BY 2 PRIMING PUFFS ONCE WEEKLY) INHALA TION 04/01/2024 [id number] 4 CAMILLE VENTURA CAJAL 2023 1 [facility] BUDESONIDE 1MG/2ML SUSP,INH,2M L 1 UNIT (2ML) NEBULIZA TION ONCE A DAY NEBULI ZATION ACTIVE SCHUM,Apr [facility] CALCIUM POLYCARBOPH [place] 625MG TAB TAKE ONE TABLET BY MOUTH ONCE A DAY ORAL ACTIVE [facility],Apr [facility] CHOLECALCIF WOOD 50MCG (2,000UNIT) TAB TAKE ONE TABLET BY MOUTH ONCE A DAY ORAL ACTIVE [facility],Apr [facility] FLUTICASONE 100/UMECLID INIUM 62.5/VILANT WOOD 25MCG/ACTUA T INH,30 INHALE 1 PUFF BY ORAL INHALATI ON ONCE A DAY RESPIR ATORY (INHAL ATION) ACTIVE SCH[facility],Apr [facility] LOSARTAN POTASSIUM 100MG TAB TAKE ONE-HALF TABLET BY MOUTH ONCE A DAY ORAL ACTIVE [facility],Apr [facility] METOPROLOL TARTRATE 50MG TAB TAKE ONE-HALF TABLET BY MOUTH TWICE A DAY [facility]AL ACTIVE [facility] ROFLUMILAST 500MCG TAB TAKE ONE TABLET BY MOUTH ONCE A DAY [facility]AL ACTIVE [facility] Allergies, Adverse Reactions, Alerts Combined list of allergies from Department of Defense and Veterans Affairs facilities. It does not include entries that were removed or entered in error. Substance Category Reaction Severity Reaction type Status Date Reported Comments Source LISINOPRIL Propensity to adverse reactions to drug (finding) Cough active 04/13/2020 Radhika ZHAO [facility] Immunizations Combined list of available immunizations from the Department of Defense and Veterans Affairs facilities. Immunization Series Date Given Administered By Site Reaction Lot Number CVX Code Drug Dental Laboratory Manager Status Comments Source INFLUENZA, HIGH-DOSE, TRIVALENT, PF 2023 DEONRENATO LEFT DELTO ID [id number] 135 complet ed Completed Series, AD[facility]ISTE RED [facility], [facility] INFLUENZA, UNSPECIFIED FORMULATION 2022 88 complet ed HISTORICA L INFORMATI ON - SOURCE UNSPECIFI ED, [facility] INFLUENZA, UNSPECIFIED FORMULATION 2021 88 complet ed HISTORICA L INFORMATI ON - FROM PATIENT'S RECALL, [facility] TDAP 2021 115 complet ed [facility] COVID-19 (MODERNA), MRNA, LNP-S, PF, 100 MCG OR 50 MCG DOSE 3 2020 207 complet ed [facility] INFLUENZA, UNSPECIFIED FORMULATION 2020 88 complet ed [facility] ZOSTER RECOMBINANT 2 2020 187 complet ed [facility] COVID-19 (MODERNA), MRNA, LNP-S, PF, 100 MCG/0.5 ML DOSE 2 2020 207 complet ed [facility] COVID-19 (MODERNA), MRNA, LNP-S, PF, 100 MCG/0.5 ML DOSE 1 2020 207 complet ed [facility] ZOSTER RECOMBINANT 1 2019 187 complet ed [facility] INFLUENZA, UNSPECIFIED FORMULATION 2019 88 complet ed [facility] PNEUMOCOCCAL POLYSACCHARID E PPV23 3 2018 33 complet ed HISTORICA L INFORMATI ON - FROM OTHER REGISTRY, [facility] INFLUENZA, HIGH DOSE SEASONAL 2 2017 135 complet ed HISTORICA L INFORMATI ON - FROM OTHER [facility], [facility] INFLUENZA, UNSPECIFIED FORMULATION 2017 88 complet ed [facility] INFLUENZA, UNSPECIFIED FORMULATION 2016 88 complet ed [facility] INFLUENZA, HIGH DOSE SEASONAL 1 2016 135 complet ed HISTORICA L INFORMATI ON - FROM OTHER REGISTRY, [facility] INFLUENZA, SEASONAL, INJECTABLE, PRESERVATIVE FREE 2015 140 complet ed [facility] N INFLUENZA, SEASONAL, INJECTABLE, PRESERVATIVE FREE 2014 140 complet ed [facility] PNEUMOCOCCAL CONJUGATE PCV 13 2014 133 complet ed [facility] INFLUENZA, SEASONAL, INJECTABLE, PRESERVATIVE FREE 2013 140 complet ed [facility] PNEUMOCOCCAL POLYSACCHARID E PPV23 2013 33 complet ed [facility] INFLUENZA, UNSPECIFIED FORMULATION 2012 88 complet ed [facility] INFLUENZA, UNSPECIFIED FORMULATION 2011 88 complet ed [facility] TDAP 2011 115 complet ed Right Deltoid [facility] ZOSTER LIVE 2011 121 complet ed [facility] INFLUENZA, UNSPECIFIED FORMULATION 2010 88 complet ed [facility] INFLUENZA, UNSPECIFIED FORMULATION 2009 88 complet ed [facility] INFLUENZA, UNSPECIFIED FORMULATION 2007 88 complet ed [facility] Results Combined list of recent chemistry, hematology and other laboratory results from Department of Defense and Veterans Affairs, ranging from 15 months to all on record, depending upon the facility. Order Name Results Value Reference Range Date Interpretation Specimen Comments Source HGA1C HEMOGLOBIN A1C/HEMOGL OBIN.TOTAL IN BLOOD 5.6 4.0 - 6.0 09/25 Specimen Type: BLOOD No comment entered. Ordering Provider: LISA GUARDADO Report Released Date/Time: Sep 26, 2023 02:21 PM Reporting Lab: [facility] [address] [facility] [phone] Performing Lab: [facility] [address] [place] [phone] [facility] METABOLI C PANEL CREATININE [MASS/VOLU ME] IN SERUM OR PLASMA 1.17 mg/dL 0.7 - 1.3 09/25 Specimen Type: PLASMA Comment: No hemolysis noted. Ordering Provider: LISA GUARDADO Report Released Date/Time: Sep 26, 2023 02:21 PM Reporting Lab: [facility] [address] [facility] [phone] Performing Lab: [facility] [address] [facility] [phone] [facility] BASIC METABOLI C PANEL UREA NITROGEN [MASS/VOLU ME] IN SERUM OR PLASMA 18.4 mg/dL 9.0 - 25.0 09/25 Specimen Type: PLASMA Comment: No hemolysis noted. Ordering Provider: LISA GUARDADO Report Released Date/Time: Sep 26, 2023 02:21 PM Reporting Lab: [facility] [address] [place] [phone] Performing Lab: [address] [address] [facility] BASIC METABOLI C PANEL GLUCOSE [MASS/VOLU ME] IN SERUM OR PLASMA 117 mg/dL 72 - 99 09/25 H Specimen Type: PLASMA Comment: No hemolysis noted. Ordering Provider: LISA GUARDADO Report Released Date/Time: Sep 26, 2023 02:21 PM Reporting Lab: [facility] [address] [facility] [phone] Performing Lab: [facility] [address] [place] [phone] [facility] BASIC METABOLI C PANEL SODIUM [MOLES/VOL UME] IN SERUM OR PLASMA 136 meq/L 136 - 145 09/25 Specimen Type: PLASMA Comment: No hemolysis noted. Ordering Provider: LISA GUARDADO Report Released Date/Time: Sep 26, 2023 02:21 PM Reporting Lab: [facility] [address] [facility] [phone] Performing Lab: [facility] [address] [place] [phone] [facility] BASIC METABOLI C PANEL POTASSIUM [MOLES/VOL UME] IN SERUM OR PLASMA 4.2 meq/L 3.5 - 5 09/25 Specimen Type: PLASMA Comment: No hemolysis noted. Ordering Provider: LISA GUARDADO Report Released Date/Time: Sep 26, 2023 02:21 PM Reporting Lab: [facility] [address] [facility] [phone] Performing Lab: [facility] [address] [facility] [phone] [facility] BASIC METABOLI C PANEL CHLORIDE [MOLES/VOL UME] IN SERUM OR PLASMA 103 meq/L 98 - 107 09/25 Specimen Type: PLASMA Comment: No hemolysis noted. Ordering Provider: LISA GUARDADO Report Released Date/Time: Sep 26, 2023 02:21 PM Reporting Lab: [facility] [address] [place] [phone] Performing Lab: [facility] [address] [place] [phone] [facility] BASIC METABOLI C PANEL CARBON DIOXIDE, TOTAL [MOLES/VOL UME] IN SERUM OR PLASMA 25 meq/L 22 - 31 09/25 Specimen Type: PLASMA Comment: No hemolysis noted. Ordering Provider: LISA GUARDADO Report Released Date/Time: Sep 26, 2023 02:21 PM Reporting Lab: [facility] [address] [facility] [phone] Performing Lab: [facility] [address] [place] [phone] [facility] BASIC METABOLI C PANEL CALCIUM [MASS/VOLU ME] IN SERUM OR PLASMA 9.8 mg/dL 8.4 - 10.4 09/25 Specimen Type: PLASMA Comment: No hemolysis noted. Ordering Provider: LISA GUARDADO Report Released Date/Time: Sep 26, 2023 02:21 PM Reporting Lab: [facility] [address] [facility] [phone] Performing Lab: [facility] [address] [place] [phone] [facility] BASIC METABOLI C PANEL GLOMERULAR FILTRATION RATE/1.73 SQ M.PREDICTE D [VOLUME RATE/AREA] IN SERUM, PLASMA OR BLOOD BY CREATININE -BASED FORMULA (CKD-EPI 2020) 65.8 60 09/25 Specimen Type: PLASMA Comment: No hemolysis noted. Ordering Provider: LISA GUARDADO Report Released Date/Time: Sep 26, 2023 02:21 PM Reporting Lab: [facility] [address] [facility] [phone] Performing Lab: [facility] [address] [facility] [phone] [facility] HEPATIC FUNTION PANEL (STL) PROTEIN [MASS/VOLU ME] IN SERUM OR PLASMA 6.9 g/dL 6 - 8.6 09/25 Specimen Type: PLASMA Comment: No hemolysis noted. Ordering Provider: LISA GURADADO Report Released Date/Time: Sep 26, 2023 02:21 PM Reporting Lab: [facility] [address] [facility] [phone] Performing Lab: [facility] [address] [facility] [phone] [facility] HEPATIC FUNTION PANEL (STL) ALBUMIN [MASS/VOLU ME] IN SERUM OR PLASMA 4.4 g/dL 3.4 - 5 09/25 Specimen Type: PLASMA Comment: No hemolysis noted. Ordering Provider: LISA GUARDADO Report Released Date/Time: Sep 26, 2023 02:21 PM Reporting Lab: [facility] [address] [place] [phone] Performing Lab: [facility] [address] [place] [phone] [facility] HEPATIC FUNTION PANEL (STL) BILIRUBIN. TOTAL [MASS/VOLU ME] IN SERUM OR PLASMA 1.1 mg/dL 0.2 - 1.2 09/25 Specimen Type: PLASMA Comment: No hemolysis noted. Ordering Provider: LISA GUARDADO Report Released Date/Time: Sep 26, 2023 02:21 PM Reporting Lab: [facility] [address] [facility] [phone] Performing Lab: [facility] [address] [place] [phone] [facility] HEPATIC FUNTION PANEL (STL) ALKALINE PHOSPHATAS E [ENZYMATIC ACTIVITY/V OLUME] IN SERUM OR PLASMA 97 U/L 40 - 150 09/25 Specimen Type: PLASMA Comment: No hemolysis noted. Ordering Provider: LISA GUARDADO Report Released Date/Time: Sep 26, 2023 02:21 PM Reporting Lab: [address] [address] Performing Lab: [place] [address] [facility] [phone] [facility] HEPATIC FUNTION PANEL (STL) ASPARTATE AMINOTRANS FERASE [ENZYMATIC ACTIVITY/V OLUME] IN SERUM OR PLASMA 23 U/L 5 - 34 09/25 Specimen Type: PLASMA Comment: No hemolysis noted. Ordering Provider: LISA GUARDADO Report Released Date/Time: Sep 26, 2023 02:21 PM Reporting Lab: [address] [address] Performing Lab: [address] [phone] [facility] HEPATIC FUNTION PANEL (STL) ALANINE AMINOTRANS FERASE [ENZYMATIC ACTIVITY/V OLUME] IN SERUM OR PLASMA 21 U/L 8 - 40 09/25 Specimen Type: PLASMA Comment: No hemolysis noted. Ordering Provider: LISA GUARDADO Report Released Date/Time: Sep 26, 2023 02:21 PM Reporting Lab: [facility] [address] [place] [phone] Performing Lab: [address] [address] [facility] HEPATIC FUNTION PANEL (STL) BILIRUBIN. CONJUGATED [MASS/VOLU ME] IN SERUM OR PLASMA 0.3 mg/dL 0 - 0.5 09/25 Specimen Type: PLASMA Comment: No hemolysis noted. Ordering Provider: LISA GUARDADO Report Released Date/Time: Sep 26, 2023 02:21 PM Reporting Lab: [facility] [address] [place] [phone] Performing Lab: [facility] [address] [facility] [phone] [facility] URINALYS IS (STL-PB) COLOR OF URINE Colorles s 09/25 Specimen Type: URINE No comment entered. Ordering Provider: LISA GUARDADO Report Released Date/Time: Sep 26, 2023 02:21 PM Reporting Lab: [place] [address] [facility] [phone] Performing Lab: [address] [address] [facility] URINALYS IS (STL-PB) BILIRUBIN. TOTAL [PRESENCE] IN URINE BY TEST STRIP Negative mg/dL 09/25 Specimen Type: URINE No comment entered. Ordering Provider: LISA GUARDADO Report Released Date/Time: Sep 26, 2023 02:21 PM Reporting Lab: [address] [address] Performing Lab: [place] [address] [facility] [phone] [facility] URINALYS IS (STL-PB) PH OF URINE BY TEST STRIP 6.5 5.0 - 8.0 09/25 Specimen Type: URINE No comment entered. Ordering Provider: LISA GUARDADO Report Released Date/Time: Sep 26, 2023 02:21 PM Reporting Lab: [place] [address] [facility] [phone] Performing Lab: [place] [address] [facility] [phone] [facility] URINALYS IS (STL-PB) APPEARANCE OF URINE Clear 09/25 Specimen Type: URINE No comment entered. Ordering Provider: LISA GUARDADO Report Released Date/Time: Sep 26, 2023 02:21 PM Reporting Lab: [address] [phone] Performing Lab: [place] [address] [facility] [phone] [facility] URINALYS IS (STL-PB) NITRITE [PRESENCE] IN URINE BY TEST STRIP Negative mg/dL 09/25 Specimen Type: URINE No comment entered. Ordering Provider: LISA GUARDADO Report Released Date/Time: Sep 26, 2023 02:21 PM Reporting Lab: [facility] [address] [place] [phone] Performing Lab: [facility] [address] [place] [phone] [facility] URINALYS IS (STL-PB) GLUCOSE [MASS/VOLU ME] IN URINE BY TEST STRIP Normalmg /dL 09/25 Specimen Type: URINE No comment entered. Ordering Provider: LISA GUARDADO Report Released Date/Time: Sep 26, 2023 02:21 PM Reporting Lab: [facility] [address] [place] [phone] Performing Lab: [address] [phone] [place] [address] URINALYS IS (STL-PB) PROTEIN [MASS/VOLU ME] IN URINE BY TEST STRIP Negative mg/dL - 20 09/25 Specimen Type: URINE No comment entered. Ordering Provider: LISA GUARDADO Report Released Date/Time: Sep 26, 2023 02:21 PM Reporting Lab: [facility] [address] [place] [phone] Performing Lab: [address] [address] [facility] URINALYS IS (STL-PB) URN.UROBIL INOGEN Normalmg /dL 09/25 Specimen Type: URINE No comment entered. Ordering Provider: LISA GUARDADO Report Released Date/Time: Sep 26, 2023 02:21 PM Reporting Lab: [facility] [address] [place] [phone] Performing Lab: [facility] [address] [place] [phone] [facility] URINALYS IS (STL-PB) HEMOGLOBIN [MASS/VOLU ME] IN URINE BY TEST STRIP Negative mg/dL 09/25 Specimen Type: URINE No comment entered. Ordering Provider: LISA GUARDADO Report Released Date/Time: Sep 26, 2023 02:21 PM Reporting Lab: [facility] [address] [facility] [address] Performing Lab: [facility] [address] [place] [phone] [facility] URINALYS IS (STL-PB) KETONES [MASS/VOLU ME] IN URINE BY TEST STRIP Negative mg/dL 09/25 Specimen Type: URINE No comment entered. Ordering Provider: LISA GUARDADO Report Released Date/Time: Sep 26, 2023 02:21 PM Reporting Lab: [facility] [address] [place] [phone] Performing Lab: [address] [address] [facility] URINALYS IS (STL-PB) URN.LEUK.E ST. Negative mg/dL 09/25 Specimen Type: URINE No comment entered. Ordering Provider: LISA GUARDADO Report Released Date/Time: Sep 26, 2023 02:21 PM Reporting Lab: [facility] [address] [place] [phone] Performing Lab: [address] [address] [facility] URINALYS IS (STL-PB) SPECIFIC GRAVITY OF URINE 1.009 1.005 - 1.029 09/25 Specimen Type: URINE No comment entered. Ordering Provider: LISA GUARDADO Report Released Date/Time: Sep 26, 2023 02:21 PM Reporting Lab: [facility] [address] [place] [phone] Performing Lab: [address] [address] [facility] LIPID PANEL (STL) CHOLESTERO L [MASS/VOLU ME] IN SERUM OR PLASMA 173 mg/dL 0 - 200 09/25 Specimen Type: PLASMA Comment: No hemolysis noted. Ordering Provider: LISA GUARDADO Report Released Date/Time: Sep 26, 2023 02:21 PM Reporting Lab: [facility] [address] [place] [phone] Performing Lab: [facility] [address] [place] [phone] [facility] LIPID PANEL (STL) TRIGLYCERI DE [MASS/VOLU ME] IN SERUM OR PLASMA 177 mg/dL 0 - 150 09/25 H Specimen Type: PLASMA Comment: No hemolysis noted. Ordering Provider: LISA GUARDADO Report Released Date/Time: Sep 26, 2023 02:21 PM Reporting Lab: [address] [phone] Performing Lab: [address] [phone] [facility] LIPID PANEL (STL) CHOLESTERO L IN LDL [MASS/VOLU ME] IN SERUM OR PLASMA BY CALCAMY N 84 mg/dL 09/25 Specimen Type: PLASMA Comment: No hemolysis noted. Ordering Provider: LISA GUARDADO Report Released Date/Time: Sep 26, 2023 02:21 PM Reporting Lab: [facility] [address] [place] [phone] Performing Lab: [address] [address] [facility] LIPID PANEL (STL) CHOLESTERO L IN HDL [MASS/VOLU ME] IN SERUM OR PLASMA 54 mg/dL 40 09/25 Specimen Type: PLASMA Comment: No hemolysis noted. Ordering Provider: LISA GUARDADO Report Released Date/Time: Sep 26, 2023 02:21 PM Reporting Lab: [facility] [address] [place] [phone] Performing Lab: [facility] [address] [place] [phone] [facility] PROST. SPECIFIC AG.(PB-S TL) PROSTATE SPECIFIC AG [MASS/VOLU ME] IN SERUM OR PLASMA 9.791 ng/mL 0 - 4 09/25 Specimen Type: SERUM Comment: The listed sex of this patient may not be a typical indication for this test. Therefore, reference ranges or interpretiv e criteria listed may not be valid. Clinical correlation suggested. Ordering Provider: LISA GUARDADO Report Released Date/Time: Sep 26, 2023 02:32 PM Reporting Lab: [address] [address] Performing Lab: [address] [address] [facility] CBC LEUKOCYTES [#/VOLUME] IN BLOOD BY AUTOMATED COUNT 9.0 10*3/uL 3.6 - 11.2 09/25 Specimen Type: BLOOD No comment entered. Ordering Provider: LISA GUARDADO Report Released Date/Time: Sep 26, 2023 02:21 PM Reporting Lab: [address] [address] Performing Lab: [address] [address] [facility] CBC ERYTHROCYT ES [#/VOLUME] IN BLOOD BY AUTOMATED COUNT 4.54 10*6/uL 4.10 - 5.70 09/25 Specimen Type: BLOOD No comment entered. Ordering Provider: LISA GUARDADO Report Released Date/Time: Sep 26, 2023 02:21 PM Reporting Lab: [address] [address] Performing Lab: [address] [address] [facility] HEMOGLOBIN [MASS/VOLU ME] IN BLOOD 14.4 g/dL 13.1 - 16.8 09/25 Specimen Type: BLOOD No comment entered. Ordering Provider: LISA GUARDADO Report Released Date/Time: Sep 26, 2023 02:21 PM Reporting Lab: [address] [id number] Performing Lab: [address] [address] [facility] HEMATOCRIT [VOLUME FRACTION] OF BLOOD 43.1 38.2 - 48.4 09/25 Specimen Type: BLOOD No comment entered. Ordering Provider: LISA GUARDADO Report Released Date/Time: Sep 26, 2023 02:21 PM Reporting Lab: [facility] [address] [place] [phone] Performing Lab: [facility] [address] [place] [phone] [place] [address] CBC MCV [ENTITIC VOLUME] BY AUTOMATED COUNT 94.9 fL 80.0 - 100.0 09/25 Specimen Type: BLOOD No comment entered. Ordering Provider: LISA GUARDADO Report Released Date/Time: Sep 26, 2023 02:21 PM Reporting Lab: [facility] [address] [place] [phone] Performing Lab: [address] [phone] [place] [address] CBC MCH [ENTITIC MASS] BY AUTOMATED COUNT 31.7 pg 27.0 - 34.0 09/25 Specimen Type: BLOOD No comment entered. Ordering Provider: LISA GUARDADO Report Released Date/Time: Sep 26, 2023 02:21 PM Reporting Lab: [facility] [address] [place] [phone] Performing Lab: [address] [phone] [facility] CBC MCHC [MASS/VOLU ME] BY AUTOMATED COUNT 33.4 g/dL 33.0 - 36.0 09/25 Specimen Type: BLOOD No comment entered. Ordering Provider: LISA GUARDADO Report Released Date/Time: Sep 26, 2023 02:21 PM Reporting Lab: [facility] [address] [place] [phone] Performing Lab: [facility] [address] [place] [phone] [facility] CBC PLATELETS [#/VOLUME] IN BLOOD BY AUTOMATED COUNT 341 10*3/uL 150 - 400 09/25 Specimen Type: BLOOD No comment entered. Ordering Provider: LISA GUARDADO Report Released Date/Time: Sep 26, 2023 02:21 PM Reporting Lab: [facility] [address] [facility] [phone] Performing Lab: [facility] [address] [phone] [facility] CBC PLATELET MEAN VOLUME [ENTITIC VOLUME] IN BLOOD BY AUTOMATED COUNT 10.4 fL 7.5 - 11.2 09/25 Specimen Type: BLOOD No comment entered. Ordering Provider: LISA GUARDADO Report Released Date/Time: Sep 26, 2023 02:21 PM Reporting Lab: [facility] [address] [place] [phone] Performing Lab: [facility] [address] [place] [phone] [facility] CBC ERYTHROCYT E DISTRIBUTI ON WIDTH [RATIO] BY AUTOMATED COUNT 12.8 11.8 - 15.1 09/25 Specimen Type: BLOOD No comment entered. Ordering Provider: LISA GUARDADO Report Released Date/Time: Sep 26, 2023 02:21 PM Reporting Lab: [facility] [address] [facility] [phone] Performing Lab: [facility] [address] [place] [phone] [facility] CBC LYMPHOCYTE S/100 LEUKOCYTES IN BLOOD BY AUTOMATED COUNT 10 09/25 Specimen Type: BLOOD No comment entered. Ordering Provider: LISA GUARDADO Report Released Date/Time: Sep 26, 2023 02:21 PM Reporting Lab: [facility] [address] [facility] [phone] Performing Lab: [facility] [address] [place] [phone] [facility] CBC MONOCYTES/ 100 LEUKOCYTES IN BLOOD BY AUTOMATED COUNT 7 09/25 Specimen Type: BLOOD No comment entered. Ordering Provider: LISA GUARDADO Report Released Date/Time: Sep 26, 2023 02:21 PM Reporting Lab: [facility] [address] [facility] [phone] Performing Lab: [facility] [address] [facility] [phone] [facility] CBC NEUTROPHIL S/100 LEUKOCYTES IN BLOOD BY AUTOMATED COUNT 78 09/25 Specimen Type: BLOOD No comment entered. Ordering Provider: LISA GUARDADO Report Released Date/Time: Sep 26, 2023 02:21 PM Reporting Lab: [facility] [address] [place] [phone] Performing Lab: [facility] [address] [place] [phone] [facility] CBC EOSINOPHIL S/100 LEUKOCYTES IN BLOOD BY AUTOMATED COUNT 3 09/25 Specimen Type: BLOOD No comment entered. Ordering Provider: LISA GUARDADO Report Released Date/Time: Sep 26, 2023 02:21 PM Reporting Lab: [address] [phone] Performing Lab: [facility] [address] [place] [phone] [facility] CBC BASOPHILS/ 100 LEUKOCYTES IN BLOOD BY AUTOMATED COUNT 1 09/25 Specimen Type: BLOOD No comment entered. Ordering Provider: LISA GUARDADO Report Released Date/Time: Sep 26, 2023 02:21 PM Reporting Lab: [facility] [address] [place] [phone] Performing Lab: [facility] [address] [place] [phone] [facility] CBC LYMPHOCYTE S [#/VOLUME] IN BLOOD BY AUTOMATED COUNT 0.94 10*3/uL 0.77 - 4.50 09/25 Specimen Type: BLOOD No comment entered. Ordering Provider: LISA GUARDADO Report Released Date/Time: Sep 26, 2023 02:21 PM Reporting Lab: [facility] [address] [place] [phone] Performing Lab: [facility] [address] [place] [phone] [facility] CBC MONOCYTES [#/VOLUME] IN BLOOD BY AUTOMATED COUNT 0.66 10*3/uL 0.19 - 0.80 09/25 Specimen Type: BLOOD No comment entered. Ordering Provider: LISA GUARDADO Report Released Date/Time: Sep 26, 2023 02:21 PM Reporting Lab: [facility] [address] [place] [phone] Performing Lab: [address] [phone] [facility] CBC NEUTROPHIL S [#/VOLUME] IN BLOOD BY AUTOMATED COUNT 7.09 10*3/uL 2.10 - 8.00 09/25 Specimen Type: BLOOD No comment entered. Ordering Provider: LISA GUARDADO Report Released Date/Time: Sep 26, 2023 02:21 PM Reporting Lab: [address] [phone] Performing Lab: [address] [phone] [facility] CBC EOSINOPHIL S [#/VOLUME] IN BLOOD BY AUTOMATED COUNT 0.24 10*3/uL 0.00 - 0.60 09/25 Specimen Type: BLOOD No comment entered. Ordering Provider: LISA GUARDADO Report Released Date/Time: Sep 26, 2023 02:21 PM Reporting Lab: [facility] [address] [place] [phone] Performing Lab: [address] [phone] [facility] CBC BASOPHILS [#/VOLUME] IN BLOOD BY AUTOMATED COUNT 0.06 10*3/uL 0.00 - 0.20 09/25 Specimen Type: BLOOD No comment entered. Ordering Provider: LISA GUARDADO Report Released Date/Time: Sep 26, 2023 02:21 PM Reporting Lab: [facility] [address] [place] [phone] Performing Lab: [address] [phone] [facility] Vital Signs Combined list of inpatient and outpatient Vital Signs from Department of Defense and Veterans Affairs, ranging from 12 months to all on record, depending upon the facility. Vital Sign Value Date Comments Source SYSTOLIC BLOOD PRESSURE 132 01/23/20 24 10:26:58 [facility] DIASTOLIC BLOOD PRESSURE 79 024 10:26:58 [facility] PULSE OXIMETRY 93 01/23/2024 10:26:58 [facility] WEIGHT 152.8 01/23/2024 10:26:58 [facility] BMI 24 kg/m2 01/23/2024 10:26:58 [facility] PAIN 0 01/23/2024 10:26:58 [facility] TEMPERATURE 97.9 01/23/2024 10:26:58 [facility] PULSE 78 01/23/2024 10:26:58 [facility] RESPIRATION 20 01/23/2024 10:26:58 [facility] SYSTOLIC BLOOD PRESSURE 117 09/26/19 24 14:49:46 [facility] DIASTOLIC BLOOD PRESSURE 71 024 14:49:46 [facility] PULSE OXIMETRY 93 09/26/2023 14:49:46 [facility] WEIGHT 151 09/26/2023 14:49:46 [facility] BMI 24 kg/m2 09/26/2023 14:49:46 [facility] PAIN 0 09/26/2023 14:49:46 [facility] TEMPERATURE 97.4 09/26/2023 14:49:46 [facility] PULSE 105 09/26/2023 14:49:46 [facility] RESPIRATION 20 09/26/2023 14:49:46 [facility] Encounters Combined list of: 1) Encounters from Department of Veterans Affairs facilities going backup to the last 18 months, not all VA inpatient encounters are included; 2) Encounters from the Department of Defense facilities going backup to 280 months. Location Location Details Encounter Type Encounter Number Reason For Visit Attending Provider ADM Date DC Date Status Disposition Source [facility] OFFICE O/P EST LOW 20-29 MIN [id number] Diagnos is: ICD-10- CM J44.9 Chronic obstruc tive pulmona ry disease , unspeci fiRAYMUNDO Garcia ARU CAJAL 12/31 [facility] OFF[facility] O/P EST MOD 30 MIN [id number] Diagnos is: ICD-10- CM I10 Essenti al (primar y) hyperte LISA Castillo 02/15 [facility] HC PRO PHONE CALL 5-10 MIN [id number] Diagnos is: ICD-10- CM J44.9 Chronic obstruc tive pulmona ry disease , unspeci fied Huma CONSTANTINO YNTHIA A 03/22 [facility] Outpatient Encounter [id number] Diagnos is: ICD-10- CM J44.9 Chronic obstruc tive pulmona ry disease , unspeci fiRAYMUNDO Garcia ARU CAJAL 04/01 [facility] Outpatient Encounter [id number] Huma CONSTANTINO YNTHIA A 07/06 [facility] Outpatient Encounter [id number] Huma CONSTANTINO YNTHIA A 07/31 [facility] Outpatient Encounter [id number] RENETTA WELCH RIFA A 09/11 [facility] Outpatient Encounter [id number] YURIRENETTA RIFA A 09/12 [facility] OFFICE O/P EST MOD 30 MIN [id number] Diagnos is: ICD-10- CM I10 Essenti al (primar y) hyperte nsion SCHOTIS,LISA 09/25 [facility] Outpatient Encounter [id number] [place] SAN[place]ES LY C 09[facility] Outpatient Encounter [id number] [place] SANCHES LY C 09/29 [facility] OFFICE O/P EST MOD 30 MIN [id number] Diagnos is: ICD-10- CM 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, bilCARYN Lyon 11/07 [facility] IMMUNIZATI ON ADMIN [id number] Diagnos is: ICD-10- CM Z23 Encount er for immuniz MICHAEL Arias 11/07 [facility] Outpatient Encounter [id number] Judith VALIENTE CECILY GONZALEZ 11/22 [facility] Outpatient Encounter [id number] CARYN GASTON 11/22 [facility] OFFICE O/P EST LOW 20 MIN [id number] Diagnos is: ICD-10- CM L57.0 Actinic keratos is SANDRA GARCIAS 12/01 [facility] OFF[facility] O/P EST LOW 20 MIN [id number] Diagnos is: ICD-10- CM I10 Essenti al (primar y) hyperte nsion SCHUM,LISA 01/22 [facility] Outpatient Encounter [id number] CIERAAMY STORMYGLENNY A 01/29 [facility] Outpatient Encounter [id number] [place] SANCHES C 02/15 [facility] Outpatient Encounter [id number] Huma CONSTANTINO YNTHIA A 02/20 [facility] Outpatient Encounter [id number] Huma CONSTANTINO YNTHIA A 02/20 [facility] Outpatient Encounter [id number] DARYLNELYHuma YNTHIA A 02/22 [facility] Outpatient Encounter [id number] 02/28 [facility] Social History Combined list of available smoking, tobacco, and other social history from Department of Defense and Veterans Affairs facilities. Social History Type Response Date Comment [facility] e Tobacco smoking status LAIS VA-TOBACCO USE FORMER CIGARETTES 01/23/2024 [facility] History of tobacco use VA-TOBACCO NEVER USED OTHER TYPE 01/23/2024 [facility] History of tobacco use VA-TOBACCO FORMER USER 02/15/2023 [facility] History of tobacco use VA-TOBACCO FORMER USER 01/26/2022 [facility] History of tobacco use VA-TOBACCO NEVER USED 01/16/2021 [facility] History of tobacco use VA-TOBACCO FORMER USER 01/17/[facility] History of tobacco use VA-TOBACCO FORMER USER 12/27/2017 [facility] History of tobacco use QUIT TOBACCO >12 MO and <7 YRS AGO 01/11/2017 [facility] History of tobacco use QUIT TOBACCO >12 MO and <7 YRS AGO 01/12/2016 [facility] History of tobacco use CURRENT TOBACCO USER 01/03/2015 [facility] History of tobacco use CURRENT TOBACCO USER 01/02/2014 [facility] History of tobacco use CURRENT TOBACCO USER 01/01/2013 [facility] History of tobacco use CURRENT TOBACCO USER 01/03/2012 [facility] History of tobacco use CURRENT TOBACCO USER 11/09/2010 [facility] History of tobacco use CURRENT TOBACCO USER 11/07/2009 [facility] History of tobacco use TOBACCO OFFERRED PT MEDS (PROVIDER) 05/22/2008 [facility]DO RE[facility] Plan of Care List of future care activities from Department [facility] facilities. Additional future care activities may be listed in the Assessment and Plan section. Date/Time Care Activity Care Activity Detail Facili ty 06/25/2024 AMBULATORY - MEDICINE AMBULATORY - MEDICI [facility] Advance Directives List of completed, amended, or rescinded Advance Directives on record at Department of [facility] facilities. An actual copy of the Directive is not included. Date Advance Directive Provider Source 06/09/2007 ADVANCE DIRECTIVE FABBY RITTER
--- OUTSIDE RECORDS SUMMARY | 2024-06-19 14:35 | XMS_ITS | Clinical Summary ---
Author Organization [facility] Address [address] [place] [address] Care Team Providers Care Director [employer] Name Role Phone Unavailable Primary Care Provider Unavailabl e Source Comments [facility],non-owned Affiliates and Associated Physician Practices is amultiple site organization consisting of ambulatory clinics and hospital sitesin [place], [place], [place] and [place]. This disclosure is being madepursuant to the Care Everywhere program and may not contain all information available regarding this patient. Last updated 17.[facility] [employer] Allergies Active Allergy Reactions Criticality Noted Date Comments Sulfa Drugs 10/26/2016 Medications * Be aware that medications may not be up to date on this document. Alwaysverify current medications with the patient. nystatin (Mycostatin) [id number] UNIT/ML suspensionIndic ations:Orophary ngeal Candidiasis Take 5 mL by mouth 4 times daily for 14 days Reasons: Candidiasis Fungal Infection of the Oropharynx 280 mL 5 05/31/19 25 Encounters Date Type Department Care Team Description 05/16/2024 Orders Only [facility] [address] [place] [address] Sarah Osborne, CLIENT SUPPORT ANALYST-RYAN from Last 3 Months Immunizations Immunization Administration Dates Next Due INFLUENZA VACCINE, HIGH-DOSE , QUADR. (FLUZONE HIGH-DOSE QUADRIVALENT; 65Y+), 0.7 ML (HD-[id number]) 11/09/2017,10/26/2016 Social History Tobacco Use Types Packs/Day Years Used Date Smoking Tobacco: Never Assessed Sex and Gender Information Value Date Recorded Sex Assigned at Not on file Legal Sex Male 4:27 PM CDT Gender Identity Male 11/09/2017 12:03 PM CDT Sexual Orientation Not on file Plan of Treatment Health Maintenance Due Date Last Done Comments COLOGUARD (AGES 45-75) - COL ON CA SCREENING 1950 COLON MONITORING 1950 COLONOSCOPY - COLON CA SCREENING 1950 CT COLONOGRAPHY - COLON CA SCREENING 1950 Colorectal Cancer Screening 1950 FIT - COLON CA SCREENING 1950 FLEX SIG - COLON CA SCREENING 1950 LIPID TESTING 1950 MEDICARE AWV 12 MONTHS 1950 HEPATITIS C SCREENING 09/17/1968 DTAP/TDAP/TD VACCINES (1 - Tdap) 1969 PNEUMOCOCCAL VACCINE 50+ (1 of 1 - PCV) 2000 ZOSTER VACCINE (1 of 2) 2000 COVID-19 VACCINE (1 - 2023-2 5 season) 2023 DEPRESSION SCREENING 02/15/2024 INFLUENZA VACCINE (Season Ended) 2024 11/09/2017, 10/26/2016 Respiratory Syncytial Virus (RSV) Vaccine Pt: or over 60 yrs (1 - 1-dose 75+ series) 2025 HEPATITIS B VACCINE Aged Out No longe r eligible based on patient's age to complete this topic HIB VACCINE Aged Out No longer eligi ble based on patient's age to complete this topic HPV VACCINE Aged Out No longer eligi ble based on patient's age to complete this topic MENINGOCOCCAL (Group B) VACCINE SHARED DECISION-MAKING Aged Out No longer eligible based on patient's age to complete this topic MENINGOCOCCAL GROUPS A/C/Y/W VACCINE Aged Out No longer eligible b ased on patient's age to complete this topic Insurance MEDICARE
--- OUTSIDE RECORDS SUMMARY | 2024-06-19 14:36 | XMS_ITS | Encounter Summary ---
Author Organization [facility] Address [address] [place] [address] Care Team Providers Care Veterinary Receptionist Name Role Phone Vita Schneider Primary Care Pr ovider Reason for Referral * MRI/CAT/PET Scan (Routine) - Authorized Specialty Diagnoses / Procedures Referred By Contac t Referred To Contact Radiology Diagnoses Cigarette nicotine dependence in remission Procedures CT Lung Cancer Screening Rosalia Guerrero NP [address] [place] [phone] Phone: tel: fax: [facility] [address] [place] [address] Referral ID Status Reason Start Date Expiration Date V isits Requested Visits Authorized [id number] Authorized 06/18/2024 07/18/2025 1 1 Reason for Visit * Reason Comments Follow-up Patient started on O micef for enlarged tonsil by PCM office Encounter Details Date Type Department Care Team (Late st Contact Info) Description 06/18/2024 9:30 AM CDT Office Visit [facility] Pulmonary at [address] [place] [phone] Rosalia Guerrero NP [address] [place] [phone] Centrilobular emphysema (HCC) (Primary Dx); Dilated cardiomyopathy (HCC); Cigarette nicotine dependence in remission Social History Tobacco Use Types Packs/Day Years Used Date Smoking Tobacco: Former Cigarettes 1 46.3 0 09/14/1968 - 01/14/2015 Smokeless Tobacco: Never Alcohol Use Standard Drinks/Week Comments Yes 0 (1 standard drink = 0.6 oz pur e alcohol) AUDIT-C Answer Date Recorded Q1: How often do you have a drink containing alc ohol? 2-4 times a month 02/27/2024 Q2: How many drinks containi ng alcohol do you have on a typical day when you are drinking? 1 or 2 02/27/2024 Q3: How often do you have si x or more drinks on one occasion? Never 02/27/2024 PHQ-2 Answer Date Recorded PHQ-2 Total Score (If total score is 3 or more points, staff should administer the PHQ-9) 0 09/02/2023 PHQ-9 Answer Date Recorded PHQ-9 Total Score 0 09/02/2023 Personal Safety Answer Date Recorded Have you ever been in or are you currently in a harmful physical or emotional relationship or is someone making you feel afraid or unsafe? Denies 09/02/2023 Sex and Gender Information Value Date Recorded Sex Assigned at Not on file Legal Sex Male 1:14 AM PUSHER OPERATOR Gender Identity Male 01/20/2021 4:57 PM PUSHER OPERATOR Sexual Orientation Straight 01/20/2021 4: 57 PM PUSHER OPERATOR documented as of this encounter Last Filed Vital Signs Vital Sign Reading Time Taken Comments Blood Pressure 124/62 06/18/2024 9:27 AM CDT Pulse 92 06/18/2024 9:27 AM CDT Temperature 36.8 C (98.2 F) 06/18/2024 9:27 AM CDT Respiratory Rate - - Oxygen Saturation 95% 06/18/2024 9:27 AM CDT Inhaled Oxygen Concentration - - Weight 63.9 kg (140 lb 12.8 oz) 06/18/2024 9:27 AM CDT Height 170.2 cm (5' 7 ) 06/18/2024 9:27 AM CDT Body Mass Index 22.05 06/18/2024 9:27 AM CDT documented in this encounter Progress Notes * Rosalia Guerrero, TIME STAMP ASSEMBLER - 06/18/2024 9:30 AM CDT Images from the original note were not included. PULMONARY CLINIC NOTE Visit Date: 06/18/2024 Chief Complaint: Presents today for COPD HPI: Lawrence Kwon is a 73 y.o. male w/ PMH of COPD/emphysema, cardiomyopathy, frequent cardiac ectopy s/p ablation who presents on 06/18/2024 for follow up on COPD. He was previously followed at outside pulmonology and was originally evaluated in our office in June2023. At that time he had had difficulty with poorly controlled COPD for years and was finally stabilized on Trelegy Ellipta 100 daily, budesonide per nebulizer twice daily and roflumilast once daily. Since that time he reports his symptoms were well controlled Despite continuing Trelegy 100 (and atrial increase to Trelegy Ellipta 200), without his budesonide he had multiple urgent care visits with chest tightness, cough, shortness of breath wheezing that were treated and resolved with steroids and antibiotics. Unfortunately in the interval he began to have frequent exacerbations again at the end of last yearand his most recent steroids and antibiotics for COPD exacerbation was in April of 2024. He has a very good response to steroids. Unbeknownst to me he has been taking both azithromycin 3 times weeklyand roflumilast 500 mcg daily. He is also compliant with his maintenance inhaled medications and uses albuterol with good clinical benefit. His activity tolerance is back to baseline and he continues to have chronic daily cough with mild mucus production. He denies hemoptysis, chest pain, unintentional weight loss, fever/chills, night sweats. He has a grossly enlarged left tonsil and has an appointment with ENT tomorrow for evaluation. Exposure History: None relevant Past Medical History: Past Medical History: Diagnosis Date COPD (chronic obstructive pulmonary disease) (HCC) Heart failure (HCC) Hyperlipidemia Hypertension Hypertension Ventricular premature beats Family History: Family History Problem Relation Age of Onset Hypertension Mother Hypertension; Alzheimer's disease Father Alzheimer's Disease; Cause of : Alzheimer's Disease Colon cancer Father Anesthesia problems Neg Hx Social History: Former smoker Quit in 2014 Smoked 35 years at about 1 PPD Review of Systems: Review of Systems Constitutional: Negative for activity change, chills, fatigue and unexpected weight change. HENT: Positive for sore throat and trouble swallowing. Negative for congestion, postnasal drip, rhinorrhea, sinus pressure and voice change. Eyes: Negative for visual disturbance. Respiratory: Positive for cough and shortness of breath (Only with significant exertion). Negative for chest tightness and wheezing. Denies hemoptysis Cardiovascular: Negative for chest pain, palpitations and leg swelling. Gastrointestinal: Denies GERD Genitourinary: Negative for difficulty urinating. Musculoskeletal: Negative for arthralgias and joint swelling. Skin: Negative for rash. Neurological: Negative for weakness. Hematological: Negative for adenopathy. Psychiatric/Behavioral: Negative for sleep disturbance. OBJECTIVE: Physical Exam: Vitals: 06/18/24 0927 BP: 124/62 BP Location: Right arm Patient Position: Sitting Pulse: 92 Temp: 36.8 ??C (98.2 ??F) TempSrc: Temporal SpO2: 95% Weight: 63.9 kg (140 lb 12.8 oz) Height: 170.2 cm (5' 7 ) Physical Exam Constitutional: Appearance: Normal appearance. HENT: Head: Normocephalic. Nose: No congestion or rhinorrhea. Mouth/Throat: Mouth: Mucous membranes are moist. Comments: Extreme hypertrophy of the left tonsil Eyes: Pupils: Pupils are equal, round, and reactive to light. Neck: Comments: No supraclavicular adenopathy Cardiovascular: Rate and Rhythm: Normal rate and regular rhythm. Heart sounds: No murmur heard. Pulmonary: Effort: Pulmonary effort is normal. No tachypnea or respiratory distress. Breath sounds: No decreased air movement. Decreased breath sounds present. No wheezing, rhonchi or rales. Abdominal: General: Bowel sounds are normal. Palpations: Abdomen is soft. Tenderness: There is no abdominal tenderness. Musculoskeletal: General: No swelling. Right lower leg: No edema. Left lower leg: No edema. Lymphadenopathy: Cervical: No cervical adenopathy. Skin: General: Skin is warm and dry. Nails: There is no clubbing. Neurological: General: No focal deficit present. Mental Status: He is alert and oriented to person, place, and time. Psychiatric: Mood and Affect: Mood normal. Data Review: CT chest 06/25/2022: Reviewed in scanned documents and notable for severe emphysema without evidence of acute process. Stable pulmonary nodules. CT lung cancer screening 07/14/2023: Personally reviewed Background emphysematous changes No new or worrisome pulmonary nodules Echocardiogram 01/31/2024: Normal LVEF, moderate LVH, grade 1 diastolic dysfunction, RVSP unable martinez estimated due to inadequate visualization of the tricuspid regurgitation jet. Pulmonary Function Testing Results: 07/26/2022: Personally reviewed Moderate to severe obstructive ventilatory limitation air trapping and hyperinflation. Moderate diffusion impairment. FEV1 1.59 L 55% predicted FVC 3.99 L 108% predicted FEV1/FVC 0.4 TLC 7.66 L 120% predicted RV 3.24 L 141% predicted DLCO 13.1 53% predicted. During 6 minute walk test he ambulated 396 m on ambient air with lowest oxygen saturation of 91% ASSESSMENT AND PLAN Diagnoses and all orders for this visit: Centrilobular emphysema (HCC) (Primary) Assessment & Plan: Continue budesonide per nebulizer once daily at the same time Continue Trelegy Ellipta 100 once daily at the same time He has tried and failed multiple inhaled options including Breztri, Advair, Spiriva, Incruse, Trelegy Ellipta 200 with recurrent exacerbations and has had the best clinical benefit from the above combination. Continue roflumilast 500 mcg once daily at the same time We have discussed concurrent use of roflumilast and azithromycin and he will discontinue azithromycin 3 times weekly He has had frequent steroid use over the last 6 months, 3 instances that I am aware of. He has goodrelief from steroids. His eosinophil count 1 year ago was 200 I will check a CBC We have discussed biologic therapy for COPD and I have given him literature to review about Dupixent, if his eosinophils are elevated I would have a low threshold to start him on injections. Albuterol as needed only, he is aware of indications for use He is aware of signs and symptoms that would require earlier evaluation or change to his plan of care Orders: - CBC with auto differential; Future Dilated cardiomyopathy (HCC) Assessment & Plan: Last EF visually estimated at 60% per his echocardiogram in 2023 Previous ablation due to significant ventricular ectopy with a total burden of 11.75% which consisted of isolated PVCs, ventricular couplets, ventricular bigeminy, ventricular trigeminy and numerous bursts of nonsustained ventricular tachycardia the longest of which was 26 beats. I would recommend annual echocardiograms. Continue metoprolol, apixiban, atorvastatin, follow ups with cardiology Cigarette nicotine dependence in remission Assessment & Plan: He quit in 2014 with a 35+ pack year history Annual low-dose CT due June of 2024, I have ordered this today and given him the number to schedule Orders: - CT Lung Cancer Screening; Future Rosalia Guerrero NP documented in this encounter Miscellaneous Notes * Assessment & Plan Note - Rosalia Guerrero NP - 06/18/2024 12:10 PM CDT Associated Problem(s): Cigarette nicotine dependence in remission He quit in 2014 with a 35+ pack year history Annual low-dose CT due June of 2024, I have ordered this today and given him the number to schedule * Assessment & Plan Note - Rosalia Guerrero NP - 06/18/2024 12:10 PM CDT Associated Problem(s): Dilated cardiomyopathy (HCC) Last EF visually estimated at 60% per his echocardiogram in 2023 Previous ablation due to significant ventricular ectopy with a total burden of 11.75% which consisted of isolated PVCs, ventricular couplets, ventricular bigeminy, ventricular trigeminy and numerous bursts of nonsustained ventricular tachycardia the longest of which was 26 beats. I would recommend annual echocardiograms. Continue metoprolol, apixiban, atorvastatin, follow ups with cardiology * Assessment & Plan Note - Rosalia Guerrero NP - 06/18/2024 12:08 PM CDT Associated Problem(s): Pulmonary emphysema (HCC) Continue budesonide per nebulizer once daily at the same time Continue Trelegy Ellipta 100 once daily at the same time He has tried and failed multiple inhaled options including Breztri, Advair, Spiriva, Incruse, Trelegy Ellipta 200 with recurrent exacerbations and has had the best clinical benefit from the above combination. Continue roflumilast 500 mcg once daily at the same time We have discussed concurrent use of roflumilast and azithromycin and he will discontinue azithromycin 3 times weekly He has had frequent steroid use over the last 6 months, 3 instances that I am aware of. He has goodrelief from steroids. His eosinophil count 1 year ago was 200 I will check a CBC We have discussed biologic therapy for COPD and I have given him literature to review about Dupixent, if his eosinophils are elevated I would have a low threshold to start him on injections. Albuterol as needed only, he is aware of indications for use He is aware of signs and symptoms that would require earlier evaluation or change to his plan of care documented in this encounter Plan of Treatment Scheduled Orders Name Type Priority Associated Diagnoses Orde r Schedule CT Lung Cancer Screening Imaging Schedule Routine, Read Routine (OP Routine) Cigarette nicotine dependence in remission Expected: 07/14/2024, Expires: 08/18/2025 documented as of this encounter Results * (ABNORMAL) CBC with auto differential (06/18/2024 10:19 AM CDT) WBC 6.42 3.80 - 9.90 K/cumm Hgb 12.3(L) 13.0 - 17.5 g/dL [facility] ([facility] Hct 37.4(L) 38.9 - 50.3 % [facility] Plt 390 150 - 400 K/cumm [facility] MPV 10.9 9.1 - 12.3 fL [facility] RBC 3.99(L) 4.30 - 5.80 M/cumm [facility] ([facility] MCV 93.7 81.3 - 96.4 fL [facility] MCH 30.8 27.1 - 33.3 pg [facility] MCHC 32.9 32.3 - 35.7 g/dL [facility] RDW CV 14.3 11.1 - 14.9 % [facility] RDW SD 49.0(H) 35.7 - 48.1 fL [facility] NRBC abs 0.00 0.00 - 0.01 K/cumm [facility] ([facility] Blood 06/18/2024 10:1 9 AM CDT 06/18/2024 1:42 PM CDT us Rosalia Guerrero TIME STAMP ASSEMBLER LAB BLOOD ORDERABLES Final Result [facility] ([facility] Department [place] [address] documented in this encounter Visit Diagnoses Diagnosis Centrilobular emphysema (HCC)- Primary Dilated cardiomyopathy (HCC) Other primary cardiomyopathies Cigarette nicotine dependence in remission documented in this encounter Discontinued Medications Medication Sig Discontinue Reason Start Date End Da te levoFLOXacin (LEVAQUIN) 750 mg tablet Take 1 tablet (750 mg total) by mouth daily Therapy completed 02/27/2024 06/18/2024 documented as of this encounter Historical Medications * This list may reflect changes made after this encounter. fluticasone propionate (FLONASE) 50 mcg/actuation nasal spray SHAKE LIQUID AND USE 2 SPRAYS IN EACH NOSTRIL DAILY FOR 14 DAYS 05/08/2024 citalopram (CeleXA) 10 mg tablet Take 1 tablet (10 mg total) by mouth daily 06/10/2024 cefdinir (OMNICEF) 300 mg capsule Take 1 capsule (300 mg total) by mouth every 12 (twelve) hours 06/15/2024 added in this encounter Care Teams Veterinary Receptionist Relationship Specialty Start Date End Date Vita Schneider PA PCP - General Physician Hog Feeder 09/17/19 documented as of this encounter
--- OUTSIDE RECORDS SUMMARY | 2024-06-19 14:36 | XMS_ITS | Encounter Summary ---
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 This section includes the names of all active insurance providers for the patient. Insurance Provider Type of Coverage Plan Name Start of Policy Coverage End of Policy Coverage Group Number Member ID Insurance Provider's Telephone Number Policy Pride's Name Patient's Relationship to Policy Rpide AARP MEDICARE SUPPLEMEN JAKI MED SUPP F Sep 15, 2015 PLAN F [id number] [place] V[place]ENT[place] PATIENT AARP MED SUPP MEDIGAP PLAN F MEDIC ARE SUPPL EMENT Sep 15, 2015 PLAN F [id number] [phone] [place] PATIENT [facility]AGE[facility] RX PRESCRIPT ION CATER KRYSTAL R Feb 14, 2018 PRXCAT [id number] [place] PATIENT MAGELLAN RX ([id number]) PRESCRIPT ION CATER KRYSTAL R Feb 14, 2018 PRXCAT [id number] [place] V[place]ENT[place] PATIENT MEDICARE (WNR) MEDICARE (M) PART A Sep 15, 2015 PART A [id number] [facility] [place] VICENT[place] PATIENT MEDICARE (WNR) MEDICARE (M) PART B Sep 15, 2015 PART B [id number] [facility] [place] VICENTE PATIENT MEDICARE (WNR) MEDICARE (M) PART A Sep 15, 2015 PART A [id number] [facility] [phone] [place] V[place] PATIENT MEDICARE (WNR) MEDICARE (M) PART B Sep 15, 2015 PART B [id number] [facility] [place] VICENTE PATIENT [facility] POINT OF SERVICE TOMI Mosley Feb 14, 2001 [id number] AMEENCAROLA PATIENT Selected Encounter This section includes the information on record at [place] for the Encounter. Date/Time Encounter Type Encounter Description Reason Provider Source Jan 23, 2024 10:30 AM OFFICE O/P EST LOW 20 MIN PRIMARY CARE/MEDICINE ICD-10-CM I10 Essential (primary) hypertension [facility] Encounter Template Text not used by [place] Assessments - Encounter Diagnoses This section includes the primary and secondary diagnoses documented for the Encounter. Date/Time Primary/Secondary Diagnosis Diagnosis Name Provider Source Jan 23, 2024 11:03 AM PRIMARY Essential (primary) hypertension [facility] Jan 23, 2024 11:03 AM SECONDARY Chronic obstructive pulmonary disease, unspecified [facility] Jan 23, 2024 11:03 AM SECONDARY Elevated prostate specific antigen [PSA] [facility] Jan 23, 2024 11:03 AM SECONDARY Family history of malignant neoplasm of digestive organs [facility] Jan 23, 2024 11:03 AM SECONDARY Polyp of colon [facility] Plan of Treatment: Future Appointments (+ 6 months) and Future Tests (+/- 45 days) The Plan of Treatment section includes future care activities for the patient from all [place] treatmentfacilities. This section includes future appointments and future orders which are active, pending or scheduled. Future Appointments This section includes appointments that were scheduled to occur 6 months from the date of the Encounter, up to a maximum of 20 appointments. The data comes from all [place] treatment facilities. Appointment Date/Time Appointment Type Appointme nt Facility Name June 25, 2024 10:00 AM AMBULATORY - MEDICINE [facility] June 29, 2024 12:00 PM AMBULATORY - MEDICINE [facility] Vital Signs: All taken on the encounter date This section contains inpatient and outpatient Vital Signs collected on the date of the Encounter. Date/Time Temperature Pulse Blood Pressure Respiratory Rate SP02 Pain Height Weight Body Mass Index Source Jan 23, 2024 10:26 AM 97.9 78 132/79 20 93 0 152.8 24 [facility] Social History: Smoking Status (Most current) and Tobacco Use (All prior to encounter date) This section includes the most current, and the historical, smoking and tobacco- related health factors from the [place] facility where the Encounter took place. Current Smoking Status This section includes the most current smoking, or tobacco-related health factor, from the [place] facility where the Encounter took place. Date/Time Current Smoking Status Comment Facil ity Jan 23, 2024 10:30 AM VA-TOBACCO NEVER U SED OTHER TYPE [facility] Tobacco Use History This section includes a history of the smoking, or tobacco-related health factors, that were collected on or before the date of the Encounter. The data comes from the [place] facility where the Encounter took place. Date/Time Smoking Status/Tobacco Use Comment F acility Jan 23, 2024 10:30 AM VA-TOBACCO USE FOR ALEXY CIGARETTES [facility] Feb 15, 2023 11:00 AM VA-TOBACCO FORMER USER [facility] Feb 15, 2023 11:00 AM VA-TOBACCO QUIT 5 TO < 15 YRS [facility] Jan 26, 2022 11:00 AM VA-TOBACCO FORMER USER [facility] Jan 26, 2022 11:00 AM VA-TOBACCO QUIT 5 TO < 15 YRS [facility] Jan 16, 2021 10:00 AM VA-TOBACCO NEVER USED [facility] Jan 17, 2020 10:30 AM VA-TOBACCO FORMER USER [facility] Jan 17, 2020 10:30 AM VA-TOBACCO QUIT 5 TO < 15 YRS [facility] Dec 27, 2017 09:21 AM VA-TOBACCO FORMER USER [facility] Dec 27, 2017 09:21 AM VA-TOBACCO QUIT 1 TO < 5 YRS [facility] Jan 11, 2017 09:46 AM QUIT TOBACCO >12 M O & <7 YRS AGO [facility] Advance Directives: All historical and current Section Date Range: From patient's date of to the date document was created. This section includes ALL of a patient's completed or amended [place] Advance and Rescinded Directives. The entries below indicate that a directive exists for the patient, but an actual copy is not included with this document. The data comes from all [place] facilities. Date Advance Directives Provider Source Jun 09, 2007 ADVANCE DIRECTIVE [facility] Encounter Notes: All associated encounter notes This section contains the clinical notes associated to the Encounter. Date/Time Encounter Note(s) Provider Source Jan 23, 2024 10:46 AM PRIMARY CARE NOTE: LOCAL TITLE: PRIMARY CARE PROVIDER ESTABLISHED VISIT STL STANDARD TITLE: PRIMARY CARE NOTE DATE OF NOTE: JAN 23, 2024@10:46 ENTRY DATE: JAN 23, 2024@10:46:32 AUTHOR: LISA GUARDADO COSIGNER: URGENCY: STATUS: COMPLETED Reason for visit/chief complaint: management of chronic diseases HPI: Patient is a 73 year old MALE with past medical history of HTN, HLD, COPD, pulmonary nodule, PVCs who presents for chronic disease management. He has had two COPD exacerbation in the last 6 months. He is currently being treated with prednisone and levaquin. STarted on Jan 14. The previous infection was about 2 months ago- required hospitalization. He subsequently developed shingles infection. He was treated with antiviral. Has residual pain and itching with some lesions. using topical lidocaine. overall improving but slowly. Denies bowel or bladder changes. Denies cardiac issues or recent procedures. No recurrent PVC after ablasion earlier this year. Bottle Packer Dr. Hui Dietz Urologist Dr. Carson PEREZ Cardiology DR. Jeannette Whitfield- derm SOURCE(S) OF HISTORY: Patient [place] records reviewed and summarized Problem List: 1) Benign essential hypertension (SNOMED CT 7759091) 2) Tobacco use comment: total pack year hx >30, quit smoking 2014 3) Family history of cancer of colon (SNOMED CT 161640917) 4) Elevated PSA (SNOMED CT 026115831) 5) Chronic obstructive pulmonary disease 6) Polyp of colon comment: Last colonoscopy January 2016, repeat January 2021 Active Outpatient Medications (including Supplies): Issue Date Status Last Fill Active Outpatient Medications Refills Expiration 1) ALBUTEROL 3/IPRATROP 0.5MG/3ML INHL 3ML ACTIVE Issu:08-01-23 Qty: 360 for 90 days Sig: INHALE 1 Refills: 1 Last:01-20-24 VIAL (3ML) BY NEBULIZATION FOUR TIMES Expr:08-01-24 A DAY DIRECTED FOR COPD 2) ATORVASTATIN CALCIUM 40MG TAB Qty: 45 ACTIVE Issu:02-15-23 for 90 days Sig: TAKE ONE-HALF TABLET Refills: 0 Last:11-30-23 BY MOUTH EVERY EVENING FOR Expr:02-16-24 CHOLESTEROL. REPORT ANY UNEXPLAINED MUSCLE PAIN/WEAKNESS TO PROVIDER. 3) BREZTRI 160/9/4.8MCG/ACT 120D ORAL INHL ACTIVE Issu:04-01-23 Qty: 1 for 30 days Sig: INHALE 2 Refills: 6 Last:05-23-23 PUFFS INHALATION TWICE A DAY Expr:04-01-24 DIRECTED FOR COPD (CLEAN INHALER FOLLOWED BY 2 PRIMING PUFFS ONCE WEEKLY) Start Date Active Non-VA Medications Refills Expiration 1) Non-VA BUDESONIDE 1MG/2ML INH SUSP 2ML ACTIVE Si UNIT (2ML) NEBULIZATION ONCE A DAY 2) Non-VA CALCIUM POLYCARBOPHIL 625MG TAB ACTIVE SiMG BY MOUTH ONCE A DAY 3) Non-VA CHOLECALCIF 50MCG (D3-2,000UNIT) ACTIVE TAB SiUNIT BY MOUTH ONCE A DAY 4) Non-VA LOSARTAN 100MG TAB SiMG BY ACTIVE MOUTH ONCE A DAY 5) Non-VA METOPROLOL TARTRATE 100MG TAB ACTIVE SiMG BY MOUTH TWICE A DAY 6) Non-VA ROFLUMILAST 250MCG TAB Sig: ACTIVE 250MCG BY MOUTH ONCE A DAY 7) Non-VA TRELEGY ELLIPTA 100/62.5/25MCG ACTIVE INH 30D Si PUFF BY ORAL INHALATION ONCE A DAY 10 Total Medications Allergies: LISINOPRIL ROS negative unless otherwise specified in HPI. OBJECTIVE: Vitals: Weight: 152.8 lb [69.31 kg] (01/23/2024 10:26) Blood Pressure: 132/79 (01/23/2024 10:26) Pulse: 78 (01/23/2024 10:26) Respirations: 20 (01/23/2024 10:26) Temperature: 97.9 F [36.6 C] (01/23/2024 10:26) O2 sats on RA: 93% (01/23/2024 10:26) PHYSICAL EXAM: General Appearance: well groomed, well nourished male, no distress Eyes: PERRL, EOMi. Conjunctiva without injection. Sclera clear and moist. Oropharynx: Posterior pharynx without erythema or exudate. Lungs: clear to auscultation bilaterally. Respirations symmetrical. Heart: regular rate and rhythm S1, S2 without m/r/c/g. Abdomen: Soft. +BS. ND/NT to palpation. Extremities: LE without edema Neurologic: cranial nerves grossly intact, normal gait DATA REVIEW: SODIUM 136 mEq/L 09/26/2023 14:30 POTASSIUM 4.2 mEq/L 09/26/2023 14:30 CHLORIDE 103 mEq/L 09/26/2023 14:30 UREA NITROGEN 18.4 mg/dL 09/26/2023 14:30 CREATININE 1.17 mg/dL 09/26/2023 14:30 CALCIUM 9.8 mg/dL 09/26/2023 14:30 PROTEIN 6.9 g/dL 09/26/2023 14:30 ALBUMIN 4.4 g/dL 09/26/2023 14:30 ALKALINE PHOSPHATASE 97 U/L 09/26/2023 14:30 ALT/SGPT 21 U/L 09/26/2023 14:30 AST/SGOT 23 U/L 09/26/2023 14:30 TOTAL BILIRUBIN 1.1 mg/dL 09/26/2023 14:30 CARBON DIOXIDE 25 mEq/L 09/26/2023 14:30 GLUCOSE 117 H mg/dL 09/26/2023 14:30 EGFR (CKD-EPI 2020) 65.8 09/26/2023 14:30 TRIGLYCERIDE 177 H mg/dL 09/26/2023 14:30 CHOLESTEROL 173 mg/dL 09/26/2023 14:30 HDL(New) 54 mg/dL 09/26/2023 14:30 CALCULATED LDL 84 mg/dL 09/26/2023 14:30 SLT - Lab Tests Selected Collection DT Specimen Test Name Result Units Ref Range 09/26/2023 14:30 BLOOD HGA1C 5.6 % 4.0 - 6.0 PROST. SPECIFIC AG.(PB-STL) 9.791 H* ng/mL 09/26/2023 14:30 VITAMIN D, 25-HYDROXY 41.4 ng/mL 01/17/2020 12:36 Lab results discussed with patient. Assessment/Plan: 1. COPD - two recent exacerbations, currently on prednisone and levaquin - currently on Trelegy (purchasing out of pocket), budesonide neb daily, and albuterol MDI prn. - Following with private Pulm and [place] pulm for co-management. Albuterol rx from [place] 2. HTN - well controlled, continue current medications. 3. Elevated PSA - last reading 9.791 H* ng/mL 09/26/2023 14:30 - patient following with private urologist, , s/p prostate biopsy 2023 Pathology reportedly benign 4. pulmonary nodule - stable per last check Jan 2022. 5. HLD - continue statin 6. PVCs - stable, asymptomatic, status post ablation 09/02/2023 - On metoprolol 25 mg bid 7. shingles - resolving, continue topical lidocaine for pain Colorectal cancer screening: Last completed: May - tubular adenoma Due: 5 year follow up Lung cancer screening: Eligibility:smoking 35-40 years ago, quit 2014. Last completed: 06/25/21 patient following with private provider for ongoing lung cancer screening scans IMPRESSION: 1. Severe emphysema without evidence of acute intrathoracic process. 2. No evidence of interstitial lung disease on high-resolution images. 3. Old granulomatous disease of the chest. 4. Multiple stable noncalcified subcentimeter pulmonary nodules in both lungs. 5. Extensive coronary artery disease. IM - IMMUNIZATIONS ADMINISTERED Immunization Series Date Facility Reaction Info COVID-19 (MODERNA), MRNA, LNP-S,* 3 01/13/2021 [facility]* COVID-19 (MODERNA), MRNA, LNP-S,* 2 04/14/2020 [facility] COVID-19 (MODERNA), MRNA, LNP-S,* 1 03/17/2020 [facility] INFLUENZA, HIGH-DOSE, TRIVALENT,* C 11/08/2023 [facility] INFLUENZA, HIGH-DOSE, TRIVALENT,* 2 11/09/2017 [facility] INFLUENZA, HIGH-DOSE, TRIVALENT,* 1 10/26/2016 [facility] INFLUENZA, SPLIT VIRUS, QUADRIVA* 01/05/2019 [facility]* INFLUENZA, SPLIT VIRUS, TRIVALEN* 01/12/2016 [facility] INFLUENZA, SPLIT VIRUS, TRIVALEN* 01/03/2015 [facility]* INFLUENZA, SPLIT VIRUS, TRIVALEN* 01/02/2014 [facility] INFLUENZA, UNSPECIFIED FORMULATI* [facility] IN[facility], UNSPECIFIED FORMULATI* 12/16/2021 [facility] INFLUENZA, UNSPECIFIED FORMULATI* 12/19/2020 [facility] INFLUENZA, UNSPECIFIED FORMULATI* [facility]* INFLUENZA, UNSPECIFIED FORMULATI* 11/01/2017 [facility]* INFLUENZA, UNSPECIFIED FORMULATI* 11/08/2016 [facility] INFLUENZA, UNSPECIFIED FORMULATI* 01/01/2013 [facility] INFLUENZA, UNSPECIFIED FORMULATI* 01/03/2012 [facility] INFLUENZA, UNSPECIFIED FORMULATI* 11/09/2010 [facility]* PNEUMOCOCCAL CONJUGATE PCV 13 01/03/2015 [facility]* PNEUMOCOCCAL POLYSACCHARIDE PPV23 01/05/2019 [facility]* PNEUMOCOCCAL POLYSACCHARIDE PPV23 01/02/2014 [facility]* TDAP 07/27/2021 [facility]* TDAP 01/03/2012 [facility]* <C> ZOSTER LIVE 08/12/2011 [facility]* ZOSTER RECOMBINANT 2 04/30/2020 [facility]* ZOSTER RECOMBINANT 1 01/17/2020 [facility]* CONTRAINDICATED No data available REFUSED ======= Immunization Date Facility Info COVID-19 (PFIZER), MRNA, LNP-S, * 01/23/2024 [facility]* <C> <C> See the Detailed Immunizations Health Summary Component[DIM] for Comments * Value is truncated; see the Detailed Immunizations Health Summary Component[DIM] for complete text ST - SKIN TESTS No data available Plan of care has been discussed with , including expected therapeutic benefits and potential side effects, who verbalizes understanding and is in agreement with the plan of care. Patient was instructed to keep all scheduled appointments and contact nurse coordinator for any additional problems. /poonam/ LISA GUARDADO PHYSICIAN SKIN CARE INSTRUCTOR Signed: 01/23/2024 11:08 [facility] Jan 23, 2024 10:31 AM NURSING NOTE: LOCAL TITLE: V15 PACT FACE TO FACE NOTE STL STANDARD TITLE: NURSING NOTE DATE OF NOTE: JAN 23, 2024@10:31 ENTRY DATE: JAN 23, 2024@10:33:10 AUTHOR: GEREMIAS PEDRO EXP COSIGNER: URGENCY: STATUS: COMPLETED Provider Visit: Patient Identifiers : Full Name Date of Reason for visit: Established Follow-Up Mode of Arrival: Ambulatory Allergy Review: LISINOPRIL Allergy list reviewed and remains current. 73 yr old. VSS. Concerned about shingles, itching & pain. Recent Vital Signs: Temperature: 97.9 F [36.6 C] (01/23/2024 10:26) Pulse: 78 (01/23/2024 10:26) Respiration: 20 (01/23/2024 10:26) B/P: 132/79 (01/23/2024 10:26) Pain: 0 (01/23/2024 10:26) Wt: 152.8 lb [69.31 kg] (01/23/2024 10:26) Ht: 67 in [170.2 cm] (08/09/2022 11:17) BMI: 24.0 POX: 93% (01/23/2024 10:26) PERSONAL HEALTH INVENTORY Notes: No data available for PHI note titles PERSONAL HEALTH INVENTORY - MAP: No data available for PHI MAP What matters most to you in your life right now? --- [place]'s Response: Family and health Would you like to discuss any personal problem, family problem, alcohol use, drug use, or a mental or emotional illness? No My [facility] ([facility]), please select appointment type: Face to face: Yes-Do you have an upgraded (Premium) account which gives you the added benefit of Secure Messaging with your Primary Care Provider and refilling your prescriptions online? Contact provided Primary Care phone number and encouraged to call if any questions or concerns. Review that after hours nurse line [phone] and emergency room are available 06/09 for patient use. Contact verbalized good understanding. COVID-19 Immunization - L,N,P,PH,U: Refused Pfizer Monovalent COVID-19 vaccine Immunization: COVID-19 (PFIZER), MRNA, LNP-S, PF, MARIANO-SUCROSE, 30 MCG/0.3 ML (AGES 12+ YEARS) Refusal Reason: PATIENT DECISION Patient refuses all immunization(s) in the COVID-19 group Comment: tolerated well Date Documented: 01/23/24 10:35 Alcohol Use Screen (AUDIT-C) - V: Alcohol Screen: SCREEN FOR ALCOHOL (AUDIT-C) An alcohol screening test (AUDIT-C) was negative (score=0). 1. How often did you have a drink containing alcohol in the past year? Consider a drink to be a 12 ounce can or bottle of regular beer, 8 ounces of malt liquor, a 5 ounce glass of table wine, or a 1.5 ounce shot of liquor (like scotch, gin, or vodka). Never 2. How many drinks containing alcohol did you have on a typical day when you were drinking in the past year? Response not required due to responses to other questions. 3. How often did you have six or more drinks on one occasion in the past year? Response not required due to responses to other questions. Depression Screening - V: Perform PHQ-2 A PHQ-2 screen was performed. The score was 0 which is a negative screen for depression. Over the past two weeks, how often have you been bothered by the following problems? 1. Little interest or pleasure in doing things Not at all 2. Feeling down, depressed, or hopeless Not at all Tobacco Use Screening - AT,DE,L,M,N,P,PH,PS,RT,S,U : The patient is a former cigarette smoker. Quit smoking GREATER THAN OR EQUAL to 15 years. The patient has never used other types of tobacco. Learning Assessment: - * This patient's learning ABILITIES, BARRIERS to learning, CULTURAL and GNOSTICISM beliefs, and learning PREFERENCES were assessed. Following are findings of note: Patient reads well. 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 Patient has the following speech barrier to consider when teaching: No speech barrier identified. LANGUAGE Patient reports that Montserratian is preferred language for healthcare. Patient has the following language barrier to consider when teaching: No language barrier has been identified. /poonam/ GEREMIAS PEDRO LPN LICENSED PRACTICAL NURSE Signed: 01/23/2024 10:37 GEREMIAS PEDRO [facility]
--- OUTSIDE RECORDS SUMMARY | 2024-06-19 14:36 | XMS_ITS | Clinical Summary ---
Author Organization [facility] Address [address] [place] [address] Care Team Providers Care Extracorporeal Circulation Specialist Name Role Phone Vita Schneider Primary Care Pr ovider Allergies Active Allergy Reactions Criticality Noted Date Comments Lisinopril Cough Low 04/13/2020 Medications albuterol HFA (PROVENTIL HFA,VENTOLIN HFA,PROAIR HFA) 90 mcg/actuation inhaler Inhale 2 puffs as needed for wheezing or shortness of breath Active atorvastatin (LIPITOR) 20 mg tabletIndication s:hyperlipidemia Take 1 tablet (20 mg total) by mouth nightly 02/11/20 18 Active fish oil-dha-epa 1,200-144-216 mg capsuleIndicatio ns:supplement Take 1 tablet by mouth every morning Active polycarbophil (FIBERCON) 625 mg tabletIndication s:constipation Take 1 tablet (625 mg total) by mouth every morning Active losartan (COZAAR) 50 mg tablet Take 1 tablet (50 mg total) by mouth daily 90 tablet 3 06/03/19 24 Active roflumilast (DALIRESP) 500 mcg tablet Take 1 tablet (500 mcg total) by mouth daily 30 tablet 11 08/03/19 24 025 Active hydrOXYzine (ATARAX) 25 mg tablet Take 1 tablet (25 mg total) by mouth 3 (three) times a day as needed for itching Active albuterol 2.5 mg/0.5 mL solution for nebulizationIndi cations:Chronic Obstructive Pulmonary Disease Take by nebulization 2 (two) times a day Active cholecalciferol (Vitamin D3) 2000 unit tabletIndication s:Vitamin D Deficiency Take 1 tablet (2,000 Units total) by mouth 3 (three) times a week MWF Active Trelegy Ellipta 100-62.5-25 mcg inhalerIndicatio ns:Bronchospasm Prevention with COPD Inhale 1 puff daily 30 each 11 11/22/19 24 Active roflumilast (DALIRESP) 500 mcg tabletIndication s:Prevention of Bronchospasm with Chronic Bronchitis Take 1 tablet (500 mcg total) by mouth daily 90 tablet 3 01/17/20 24 025 Active metoprolol tartrate (LOPRESSOR) 25 mg immediate release tablet TAKE 1 TABLET BY MOUTH TWICE A DAY 180 tablet 1 02/20/19 25 Active budesonide (PULMICORT) 1 mg/2 mL nebulizer solutionIndicati ons:Chronic obstructive pulmonary disease, unspecified COPD type (HCC) Take 2 mL (1 mg total) by nebulization 2 (two) times a day Rinse mouth with water after use. Do not swallow. 120 mL 11 03/19/19 25 Active azithromycin (ZITHROMAX) 500 mg tablet Take 1 tablet (500 mg total) by mouth 3 (three) times a week 36 tablet 3 04/24/19 25 Active cefdinir (OMNICEF) 300 mg capsule Take 1 capsule (300 mg total) by mouth every 12 (twelve) hours 06/16/19 25 Active citalopram (CeleXA) 10 mg tablet Take 1 tablet (10 mg total) by mouth daily 06/11/19 25 Active fluticasone propionate (FLONASE) 50 mcg/actuation nasal spray SHAKE LIQUID AND USE 2 SPRAYS IN EACH NOSTRIL DAILY FOR 14 DAYS 05/09/19 25 Active levoFLOXacin (LEVAQUIN) 750 mg tablet Take 1 tablet (750 mg total) by mouth daily 7 tablet 02/26/19 25 025 Discontin ued(Thera py completed ) Active Problems Problem Noted Date Diagnosed Date Cigarette nicotine dependence in remission 09/14 Assessment & Plan (06/18/2024 12:10 PM CDT): He quit in 2014 with a 35+ pack year history Annual low-dose CT due June of 2024, I have ordered this today and given him the number to schedule Assessment & Plan (01/17/2024 12:52 PM JEWEL BEARING DRILLER): Quit in 2014 with a 35+ pack year history Annual low-dose CT due June of 2024 Assessment & Plan (09/15/2023 1:42 PM CDT): Quit in 2014 Annual low-dose CT due June of 2024 Age-related nuclear cataract, bilateral 03/28/19 Plantar fascial fibromatosis 03/28/2023 Polyp of colon 03/28/2023 Overview (03/28/2023): Jan 05, 2019 Entered By: LISA GUARDADO Comment: Last colonoscopy January 2016, repeat January 2021 Unspecified cataract 03/28/2023 Unspecified disorder of refraction 03/28/2023 High prostate specific antigen (PSA) 03/28/2023 Essential (primary) hypertension 03/28/2023 Primary hypertension 03/28/2023 Assessment & Plan (09/02/2023 4:19 PM CDT): See 'dilated cardiomyopathy' Pulmonary emphysema 08/02/2022 Assessment & Plan (06/18/2024 12:08 PM CDT): Continue budesonide per nebulizer once daily at [...] that I am aware of. He has good relief from steroids. His eosinophil count 1 year [...] or change to his plan of care Assessment & Plan (01/17/2024 12:54 PM JEWEL BEARING DRILLER): Continue budesonide per nebulizer once daily Continue Trelegy Ellipta 100 once daily He has tried and failed multiple inhaled options including Breztri, Advair, Spiriva, Incruse with recurrent exacerbations and has had the best clinical benefit from the above combination. Continue roflumilast 500 mcg once daily Albuterol as needed only, he is aware of indications for use He is aware of signs and symptoms that would require earlier evaluation or change to his plan of care Assessment & Plan (09/15/2023 1:41 PM CDT): Continue budesonide per nebulizer once daily Continue Trelegy Ellipta 100 once daily He has tried and failed multiple inhaled options including Breztri, Advair, Spiriva, Incruse with recurrent exacerbations. Continue roflumilast 500 mcg once daily Albuterol as needed only, discussed indications for use Chronic fatigue 06/07/2022 Orthostatic hypotension 01/14/2022 Mitral valve prolapse 01/14/2022 Chronic cough 01/14/2022 Overweight with body mass index (BMI) 25.0-29.9 01/14/2022 COPD exacerbation 01/14/2022 Assessment & Plan (02/27/2024 8:32 PM JEWEL BEARING DRILLER): Likely secondary to viral exposure. He has wheezes today and appears fatigued. Harsh cough noted during office visit. Start prednisone and antibiotics, Hydrate and rest. He is aware of signs and symptoms that would require earlier evaluation or change to his plan of care. Assessment & Plan (01/17/2024 12:56 PM JEWEL BEARING DRILLER): He has mucus that is difficult to expectorate with change in color, increased cough, dyspnea and fatigue. He was using his albuterol frequently some clinical benefit Have recommended NAC to assist with mucus clearance Continue current maintenance treatment He will start steroids and antibiotics and will call if his condition has not significantly improved in a few days. 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 I would recommend annual echocardiograms. Continue metoprolol, apixiban, atorvastatin, follow ups with cardiology Assessment & Plan (01/17/2024 12:52 PM JEWEL BEARING DRILLER): Last EF visually estimated at 45% per echocardiogram in 2022 Previous ablation due to significant ventricular ectopy with a total burden of 11.75% which consisted of isolated PVCs, ventricular couplets, ventricular bigeminy, ventricular trigeminy and numerous bursts of nonsustained ventricular tachycardia the longest of which was 26 beats. Continue metoprolol, apixiban, atorvastatin, follow ups with cardiology Assessment & Plan (09/15/2023 1:40 PM CDT): Last EF visually estimated at 45% per echocardiogram in 2022 Recent ablation due to significant ventricular ectopy with a total burden of 11.75% This consisted of isolated PVCs, ventricular couplets, ventricular bigeminy, ventricular trigeminy and numerous bursts of nonsustained ventricular tachycardia the longest of which was 26 beats. Continue metoprolol, apixiban Assessment & Plan (09/02/2023 4:23 PM CDT): LVEF 49% (10/25/22). No signs of volume overload on exam. 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 Menendez (Cardiology) most recently 06/03/23. Post PVC ablation with stereotaxis 09/02/23. Admitted for observation and telemetry. -Per EP, discharge home today on eliquis 5mg bid Elevated PSA 08/25/2020 Solitary pulmonary nodule 07/20/2018 Moderate chronic obstructive pulmonary disease 1 Assessment & Plan (02/27/2024 8:35 PM JEWEL BEARING DRILLER): Continue Trelegy Ellipta 100 daily and budesonide per nebulizer Albuterol as needed only, he is aware of indications for use A1AT normal Hypertensive disorder 12/01/2017 Angiokeratoma of skin 10/22/2016 Overview (05/27/2017): Description: Infranasal tip, biopsy proved 06/2013. Benign, reassurance. Involuting nevus 11/07/2015 Skin tag 11/07/2015 Actinic keratosis 08/19/2014 Melanocytic nevus of trunk 07/02/2013 Skin neoplasm 07/02/2013 Lentigo 07/02/2013 Overview (05/27/2017): Description: Benign, reassurance. Continue photoprotection. Cont monthly SSE and yearly MD FBSE. Keratosis, senilis 07/02/2013 Overview (05/27/2017): Description: Benign, reassurance. Resolved Problems Problem Noted Date Diagnosed Date Resolved Date Chronic obstructive pulmonar y disease, unspecified 03/28/2023 09/15/2023 Benign essential hypertension 01/10/2022 06/03/2023 Severe chronic obstructive pulmonary disease 2 01/17/2024 Chronic obstructive pulmonary disease 06/18/2021 09/15/2023 Assessment & Plan (09/02/2023 4:18 PM CDT): Sees Dr. Guzman (Pulmonology). Not on O2. Outpatient regimen: Trelegy Ellipta qday, Pulmicort BID, albuterol neb BID, albuterol rescue inhaler prn, roflumilast 250mcg qday, Mucinex. - Continue Hyperlipidemia 01/02/2019 06/03/2023 Essential hypertension 06/30/201306/02 Overview (05/21/2016): Hypertension Tobacco dependence syndrome 02/27/2009 09/15/2023 Overview (05/21/2016): TOBACCO USE DISORDER Encounters Date Type Department Care Team Description 06/18/2024 10:20 AM CDT Lab [address] Centrilobular emphysema (HCC) 06/18/2024 9:30 AM CDT Office Visit [facility] at [address] [place] [id number] Rosalia Guerrero NP Centrilobular emphysema (HCC) (Primary Dx); Dilated cardiomyopathy (HCC); Cigarette nicotine dependence in remission 04/19/2024 Telephone [facility] at [address] [place] [id number] Marleny Edgar LPN azithromycin from Last 3 Months Surgical History Surgery Date Site/Laterality Comments HERNIA REPAIR 02/14/1999 - 02/14/2000 Hernia repair KNEE SURGERY Right meniscus Medical History Medical History Date Comments Hypertension Hypertension COPD (chronic obstructive pulmonary disease) (HC C) Ventricular premature beats Hyperlipidemia Heart failure (HCC) Family History Medical History Relation Name Comments Alzheimer's disease Father Giovanny Kwon Alzhei james's Disease; Cause of : Alzheimer's Disease Colon cancer Father Giovanny Kwon Hypertension Mother Zakia Kwon Hypertensio n; Anesthesia problems Neg Hx Relation Name Status Comments Father Giovanny Kwon (Age 78) Mother Zakia Kwon (Age 89) Social History Tobacco Use Types Packs/Day Years Used Date Smoking Tobacco: Former Cigarettes 1 46.3 0 09/14/1968 - 01/14/2015 Smokeless Tobacco: Never Tobacco Cessation:Counseling Given: Not Answered Alcohol Use Standard Drinks/Week Comments Yes 0 [...] on file Legal Sex Male 1:14 AM JEWEL BEARING DRILLER Gender Identity Male 01/20/2021 4:57 PM JEWEL BEARING DRILLER Sexual Orientation Straight 01/20/2021 4: 57 PM JEWEL BEARING DRILLER Obstetrics History Last Filed Vital Signs Vital Sign Reading Time Taken Comments Blood Pressure 124/62 06/18/2024 9:27 AM CDT Pulse 92 06/18/2024 9:27 AM CDT Temperature 36.8 C (98.2 F) 06/18/2024 9:27 AM CDT Respiratory Rate 16 02/27/2024 2:30 PM JEWEL BEARING DRILLER Oxygen Saturation 95% 06/18/2024 9:27 AM CDT Inhaled Oxygen Concentration - - Weight 63.9 kg (140 lb 12.8 oz) 06/18/2024 9:27 AM CDT Height 170.2 cm (5' 7 ) 06/18/2024 9:27 AM CDT Body Mass Index 22.05 06/18/2024 9:27 AM CDT Plan of Treatment Health Maintenance Due Date Last Done Comments Colon Cancer Screening-Colonoscopy 1950 Hepatitis C Screening 1950 Hepatitis B Screening 1968 Abdominal Aortic Aneurysm (A AA) Screen 09/23/2015 Well Visit 65+ 09/23/2015 Depression Screening 05/19/2024 05/20/2023, 05/20/19 24 Lung Cancer Screening 07/14/2024 07/14/2023 Fall Risk Assessment 09/02/2024 09/03/2023, 10/27/19 23 DTaP/Tdap/Td Vaccine (3 - Td or Tdap) 07/28/2031 07/27/2021, 01/03/2012 Pneumococcal vaccine 65+ Completed 019, 01/03/2015, 01/02/2014 Zoster Vaccine Completed 04/30/2020, 03/2020, 01/17/2020, Additional history exists Influenza Vaccine Completed 11/08/2023, , 12/16/2021, Additional history exists Medical Devices Implanted Type Area Photocopier Technician Device Identifier Shelf Expiration Date Model / Serial / Lot [employer] Vascade Mvp 6-12fr Venous Closure [id number] - [id number] - [id number] Implanted:Qty: 1 on 09/02/2023 by Kerry Machado MD at [facility] Collagen Right: Femoral Vein [employer] 03/03/2025 [id number] [id number] / [id number] 29A / [id number] 29A [employer] Vascade Mvp 6-12fr Venous Closure [id number] - [id number] - [id number] Implanted:Qty: 1 on 09/02/2023 by Kerry Machado MD at [facility] Collagen Right: Femoral Vein [employer] 01/05/2025 [id number] [id number] / [id number] 30A / [id number] 30A [employer] Device Vascular Closure Femoral Artery Bioabsorbable Dual Method Vascade 6-7fr Collagen [id number] - [id number] - [id number] Implanted:Qty: 1 on 09/02/2023 by Kerry Machado MD at [facility] Collagen Left: Femoral Vein [employer] 05/17/2025 [id number] 05U / [id number] 10A / [id number] Hernia Mesh Abdomen Procedures Procedure Name Priority Date/Time Associated Diagnosis Comments DIFFERENTIAL AUTO Routine 06/18/2024 10: 19 AM CDT Centrilobular emphysema (HCC) CBC WITH AUTO DIFFERENTIAL Routine 06/18/2024 10:19 AM CDT Centrilobular emphysema (HCC) CT LUNG CANCER SCREENING Schedule Routine, Read Routine (OP Routine) 07/14/2023 8:20 AM CDT Nicotine dependence, cigarettes, in remission from Last 3 Months or Most Recently Relevant to Health Maintenance Results * Differential, auto (06/18/2024 10:19 AM CDT) Neutrophil abs 4.76 1.50 - 6.50 K/cumm Imm gran abs 0.02 0.00 - 0.10 K/cumm [facility] ([facility]) Lymphocyte abs 0.87 0.80 - 3.30 K/cumm [facility] ([place]) Monocyte abs 0.52 0.20 - 0.80 K/cumm [facility] ([place]) Eosinophil abs 0.18 0.00 - 0.50 K/cumm [facility] ([place]) Basophil abs 0.07 0.00 - 0.10 K/cumm [facility] ([facility]) Neutrophil pct 74.1 % [facility] ([facility]) Comment: Interpretive Data Percent cell count reference ranges are not reported, since discordance with absolute values may lead to misinterpretation of CBC data. Current Interpretive Data was last revised on 2017. Imm gran pct 0.3 % [facility] ([facility]) Comment: Interpretive Data Percent cell count reference ranges are not reported, since discordance with absolute values may lead to misinterpretation of CBC data. Current Interpretive Data was last revised on 2017. Lymphocyte pct 13.6 % [facility] ([facility] Comment: Interpretive Data Percent cell count reference ranges are not reported, since discordance with absolute values may lead to misinterpretation of CBC data. Current Interpretive Data was last revised on 2017. Monocyte pct 8.1 % [facility] ([facility]) Comment: Interpretive Data Percent cell count reference ranges are not reported, since discordance with absolute values may lead to misinterpretation of CBC data. Current Interpretive Data was last revised on 2017. Eosinophil pct 2.8 % [facility] ([facility] Comment: Interpretive Data Percent cell count reference ranges are not reported, since discordance with absolute values may lead to misinterpretation of CBC data. Current Interpretive Data was last revised on 2017. Basophil pct 1.1 % [facility] ([facility] Comment: Interpretive Data Percent cell count reference ranges are not reported, since discordance with absolute values may lead to misinterpretation of CBC data. Current Interpretive Data was last revised on 2017. Blood 06/18/2024 10:1 9 AM CDT 06/18/2024 1:42 PM CDT us Rosalia Guerrero WAREHOUSE DISTRIBUTION MANAGER LAB BLOOD ORDERABLES Final Result [facility] ([facility] [place] [address] * (ABNORMAL) CBC with auto differential (06/18/2024 [...] ([place]) MCV 93.7 81.3 - 96.4 fL [facility] ([place] MCH 30.8 27.1 - 33.3 pg [facility] MCHC 32.9 32.3 - 35.7 g/dL [facility] ([place]) RDW CV 14.3 11.1 - 14.9 % [facility] RDW SD 49.0(H) 35.7 - 48.1 fL [facility] NRBC abs 0.00 0.00 - 0.01 K/cumm [facility] Blood 06/18/2024 10:1 9 AM CDT 06/18/2024 1:42 PM CDT us Rosalia Guerrero NP LAB BLOOD ORDERABLES Final Result [facility] [place] [address] * CT Lung Cancer Screening (07/14/2023 8:20 AM CDT) Anatomical Region Laterality Modality Chest N/A Computed Tomogra phy 07/14/2023 2:27 PM CDT Narrative 07/14/2023 2:35 PM CDT EXAM DESCRIPTION: CT LUNG CANCER SCREENING REASON FOR STUDY: Screening CT of the chest in a former smoker with a 35 pack year smoking history. Additional history: None. TECHNIQUE: Low dose CT scan of the chest was performed without intravenous contrast using helical scanning technique. The exam extends from the lung apices through the lung bases. Automatic exposure control was used as a dose optimization technique. NOTE: This study was performed for the specific purposes of lung cancer screening and is not an alternative to diagnostic chest CT. RADIATION DOSE: CT dose index volume (CTDIvol) = 1.17 mGy COMPARISON: PET CT 12/27/2022, CT chest 06/25/2022 FINDINGS: SMOKING RELATED LUNG DISEASE: Moderate to severe centrilobular pulmonary emphysema. Mild bronchial wall thickening and endobronchial debris. LUNG NODULES: No suspicious pulmonary nodules. Calcified granulomas. Chronic lingular atelectasis or scarring. CORONARY ARTERY CALCIFICATION: Present. OTHER: Normal heart size. No mediastinal or hilar lymph node enlargement by size criteria. Hepatic lesions without abnormal FDG avidity on prior PET CT. No acute skeletal abnormality. IMPRESSION: No suspicious pulmonary nodules. Moderate to severe pulmonary emphysema. Mild bronchial wall thickening and debris which can be seen with chronic bronchitis. Lung-RADS category 1: Negative. Recommendation: Low dose Screening CT of chest in 12 months. THIS IS AN ELECTRONICALLY VERIFIED FINAL REPORT 07/14/2023 2:35 PM - Electronically signed by Godwin Hernandez M.D. JR: Report ID: [id number] Reading Location: [place] [id number] Procedure Note Godwin Hernandez MD - 07/14/2023 EXAM DESCRIPTION: CT LUNG CANCER SCREENING REASON FOR STUDY: Screening CT of the chest in a former smoker with a35 pack year smoking history. Additional history: None. TECHNIQUE: Low dose CT scan of the chest was performed without intravenous contrast using helical scanning technique. The exam extends from the lung apices through the lung bases. Automatic exposure control was used as adose optimization technique. NOTE: This study was performed for the specific purposes of lung cancer screening and is not an alternative to diagnostic chest CT. RADIATION DOSE: CT dose index volume (CTDIvol) = 1.17 mGy COMPARISON: PET CT 12/27/2022, CT chest 06/25/2022 FINDINGS: SMOKING RELATED LUNG DISEASE: Moderate to severe centrilobular pulmonary emphysema. Mild bronchial wall thickening and endobronchial debris. LUNG NODULES: No suspicious pulmonary nodules. Calcified granulomas. Chronic lingular atelectasis or scarring. CORONARY ARTERY CALCIFICATION: Present. OTHER: Normal heart size. No mediastinal or hilar lymph nodeenlargement by size criteria. Hepatic lesions without abnormal FDG avidity on prior PETCT. No acute skeletal abnormality. IMPRESSION: No suspicious pulmonary nodules. Moderate to severe pulmonary emphysema. Mild bronchial wall thickening and debris which can be seen with chronic bronchitis. Lung-RADS category 1: Negative. Recommendation: Low dose Screening CT of chest in 12 months. THIS IS AN ELECTRONICALLY VERIFIED FINAL REPORT 07/14/2023 2:35 PM - Electronically signed by Godwin Hernandez M.D. JR: Report ID: [id number] Reading Location: [id number] Omar Guzman MD IMG CT PROCEDURES Final Result from Last 3 Months or Most Recently Relevant to Health Maintenance Insurance MEDICARE [facility] MEDICARE AAR MEDICARE [facility] [place] [address] [employer] Advance Directives For more information, please contact: [phone] * Full Code (Latest Code Status on File) Date Activated Date Inactivated Comments 09/02/2023 3:45 PM 09/03/2023 5:41 PM Care Teams Extracorporeal Circulation Specialist Relationship Specialty Start Date End Date Vita Schneider PA PCP - General Physician Cinder Crusher Operator 09/17/19
--- OUTSIDE RECORDS SUMMARY | 2024-06-19 14:36 | XMS_ITS ---
Author Organization [facility] [place] ([address]) Address [address] [place] [address] Care Team Providers Care Unishear Operator Name Role Phone Jennie Vita Primary Care Provider UnavailBarb Schreiber Unavailable [phone] Allergies No Known Allergies REASON FOR VISIT Urticaria/Pruritus follow-up - continued itching, but no rash present Medications Medication SIG (Take, Route, Frequency, Duration) Notes Start Date End Date Status Apixaban 5 MG as directed Orally Not-Taking Famotidine 40 MG 1 tablet as needed Orally Twice a day Active Citalopram Hydrobromide 10 MG 1 tablet Orally Once a day Active Abiola Hives 24HR 180 MG 1 tablet Swall ow whole with water; do not take with fruit juices. Orally twice a day for 90 days 11/29/2023 Active predniSONE 10 MG 4 tablets once a day for 2 days, 3 tablets once a day for 2 days, 2 tablets once a day for 2 days, 1 tablet once a day for 2 days Orally Once a day Not-Taking Montelukast Sodium 10 MG 1 tablet Orally Once a day Not-Taking Loratadine 10 MG 1 tablet Orally Once a day Not-Taking Albuterol Sulfate HFA 108 (90 Base) MCG/ACT 1 puff as needed Inhalation every 4 hrs Active Atorvastatin Calcium 20 MG 1 tablet Orally Once a day Active guaiFENesin ER 600 MG 1 tablet as needed Orally every 12 hrs Active FiberCon 625 MG 2 tablets as needed Orally Three times a day Active Metoprolol Tartrate 50 MG 1 tablet with food Orally Twice a day Active Losartan Potassium 50 MG 1 tablet Orally Once a day Active hydrOXYzine HCl 25 MG 1 tablet as needed Orally Once a day Active Mucinex 600 MG 1 tablet as needed Orally every 12 hrs Active Trelegy Ellipta 100-62.5-25 MCG/ACT 1 puff Inhalation Once a day Active Daliresp 250 MCG 1 tablet Orally Once a day Active Social History Tobacco Use: Social History Observation Description Date Details (start date - stop date) Former Smoker NA - NA Tobacco Control (Standard) Question Answer Notes Tobacco use: Former smoker Vital Signs Blood pressure systolic 143 mm Hg 11/29/19 24 Blood pressure diastolic 86 mm Hg 024 Height 67 in 11/29/2023 Weight 154.6 lbs 11/29/2023 BMI 24.21 kg/m2 11/29/2023 Oximetry 96 % 11/29/2023 Encounters Encounter Location Date Provider Diagnosis [facility] [address] [facility] [address] [place] [id number] 11/29/2023 Barb Leiva Dermatographic urticaria 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 just itching. Moisturizer recommended. 11/29/2023 Chronic rhinitis (ICD-10 - J31.0) Given the history and symptoms, ImmunoCAPs were performed to common aeroallergens to determine atopic status. ImmunoCAPs were negative. 11/29/2023 Other Plan Of Treatment Medication Medication Name Sig Start Date Stop Date Notes Famotidine 40 MG 1 tablet as needed O rally Twice a day Xyzal Allergy 24HR 5 MG 1 tablet in the evening Orally twice a day for 30 days Abiola Hives 24HR 180 MG 1 tablet Swall ow whole with water; do not take with fruit juices. Orally twice a day for 90 days 11/29/2023 Treatment Notes Assessment Notes Dermatographic urticaria Unclear cause f or recurrent pruritus. Labs showed normal CBC with [...] no recent hives. just itching. Moisturizer recommended. Chronic rhinitis Given the history an d symptoms, ImmunoCAPs were performed to common aeroallergens to determine atopic status. ImmunoCAPs were negative. Next Appt Details Follow Up: 4 Weeks, Reason: Progress Notes * Lawrence KWONDOB:[birth year] (73 yo M)Acc No.[id number]:11/29/2023 Progress Notes Patient: Ulises MCCAINord Provider: Raul Leiva MD :1950 A ge:73 Y S ex:Male Date:11/29/2023 Address:[address] [place], [place] [id number] Pcp:Vita Schneider Subjective: * Chief Complaints: * U rticaria/Pruritus follow-up - continued itching, but no rash present * HPI: * Introduction: I had the pleasure of seeing Huma Kwon, a 73 year old with HTN, hyperlipidemia presenting for f/u evaluation of pruritus. He is alone for today's visit. He was last evaluated 11-01-2023. Continued itching. He spoke to his PCP about anxiety and concern related to medications. He stopped losartan for 1 week wtihout improvement in itching. He stopped atorvastatin for a few days without improvement in itching. He started Citalopram 10 mg at night and has been taking for about 2 weeks. He reports continued itching on his trunk, posterior legs and upper arms. He sometimes develops hives after itching. He also reports scalp itching which increases when sweating. His daughter is concerned about anxiety playing a role in itching. Some improvement with hydroxyzine but symptoms do not completely resolve. He started Xyzal 5 mg BID and famotidine 20 mg BID without improvement. ? June 2023, he started developing pruritus. 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 When he scratches his skin, develops a rash.He started prednisone several times with improvement. He was evaluated at [facility].? He is following with Dr. Guzman for COPD. He is using Dove soap, Head & Shoulders. He does not use moisturizers. Today, he reports no fevers, chills, night sweats or other constitutional symptoms. * ROS: A LLERGY: runny nose N o. s cratchy throat N o. i tchy eyes N o. e ar fullness N o. s inus congestion N o. P ositive p er the HPI and history, otherwise unremarkable. S PECIAL SENSES: Positve for n one. c ataracts N o. g laucoma?No. l oss of hearing N o. i tching in ears N o. r inging in ears N o.?loss of balance N o. l oss of smell N o. d ry eyes N o. e xcessive tearing No. i tching eyes N o. l oss of taste N o. c onjunctivitis N o. e ar infections N o. C ONSTITUTIONAL: weight gain N o. l oss of appetite N o. f ever?No. w eakness N o. w eight loss N o. f atigue N o. n ight sweats?No. P ositive for n one. E NT: cold N o. c ough N o. e pistaxis N o. h earing loss N o. c hange in voice N o. s ore throat N o. r inging in ears?No. s inus pain N o. P ositive p er the HPI and history, otherwise unremarkable.? R ESPIRATORY: shortness of breath Y es. c hest pain N o. c hest congestion Y es. c ough N o. P ositive p er the HPI and history, otherwise unremakable. O PHTHALMOLOGY: diminished vision N o. e ye irritation N o. d rainage from eyes N o. b lurring of vision N o. s easonal eye sx N o. P ositive for p er the HPI and history, otherwise unremarkable. i tching N o. s ensitivity to light N o. d ischarge N o. w atering N o. s welling of the eyelids N o. r edness N o. E NDOCRINOLOGY: fatigue N o. p olydipsia N o. p olyuria N o. w eight loss N o. s leep disturbance N o. c old intolerance N o. h eat intolerance N o. d iabetes N o. P ositive for n one. C ARDIOLOGY: chest pain N o. p alpitations N o. l eg edema?No. d izziness N o. s hortness of breath N o. P ositive for n one. ? G ASTROENTEROLOGY: dysphagia N o. a bdominal pain N o. n ausea?No. v omiting N o. c onstipation N o. d iarrhea N o. b lood in stool?No. i ndigestion N o. h emorrhoids N o. P ositive for n one. ? U ROLOGY: difficulty urinating N o. b lood in urine N o. f requent urination N o. u rinary incontinence N o. r ecurrent UTI N o. P ositive for n one. D ERMATOLOGY: rash Y es. d ry or sensitive skin N o. h jesu (urticaria) Y es. a cne N o. s kin cancer N o. P ositive for p er the HPI and history, otherwise unremakable. N EUROLOGY: headache N o. t ingling numbness N o. s eizures?No. i nsomnia N o. m gertrudis loss N o. d izziness N o. g ait abnormality N o. P ositive for n one. H EMATOLOGY/LYMPH: Positive for n one. M USCULOSKELETAL: joint swelling N o. j oint pain N o. l eg cramps N o. j oint stiffness N o. s ciatica N o. o steoporosis N o. f racture N o. c arpal tunnel N o. g out N o. P ositive for n one. P SYCHOLOGY: high stress level N o. d epression N o. s leep disturbances N o. s uicidal ideation N o. e ating disorder N o. m ental or physical abuse N o. a nxiety Y es. P ositive for n one. M SAMM REPRODUCTIVE: difficulty with erection N o. d iminished sexual drive?No. p enile discharge N o. i nfertility N o. A ll other review of systems per the HPI and history, otherwise unremarkable. * Medical History: * Surgical History: H ernia surgery Cardiac ablation 09-02-2023 * Hospitalization/Major Diagno stic Procedure: a archie surgeries * Family History: F ather: , Yes. M other: , Yes. There is no other family history of cancer, CF, diabetes, emphysema or heart disease . * Social History: M arital Status What is your marital status? m arried A lcohol Screening Do you ever drink alcoholic beverages? Y es Number of drinks per occasion: 3 Frequency? W gabrielle cox Have you ever smoked tobacco: f ormer smoker Additional Findings: Tobacco User L ight cigarette smoker ((1-9 cigs/day) How old were you when you started smoking? 1 9 How old were you when you quit smoking? 6 2 How many cigarettes a day did you smoke? 1 1 to 20 Are you a : f ormer smoker R ecreational drug use Have you ever used recreational drugs? N o D etails on consumption of certain products? Do you regularly consume products with aspartame; Equal or NutraSweet? N o Have you ever noticed worsening of your rash with these food items? N o E xercise What kind(s) of exercise do you perform regularly? w alking How often do you perform this exercise? d aily A re any of the following personal care products containing fragrance, dye or preservatives used regularly? Shampoo: N o Conditioner: N o Soap: Y es Laundry Detergent: N o Fabric Softener: N o Deodorant: N o Perfume, cologne, after shave: Y es Air freshners or other scented products: Y es Hair coloring dyes or rinses: N o Other: N o O ccupation Are you currenly employed? 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 N o Are you currently a student? N o E nvironmental History Living environment: p rivate home Where is the home located? [place] Age of home: 2 [address]8 How long have you lived there? 5 years or more How many people live in the home? 2 H ome description Basement: Y es Any water damage in basement? N o Smokers in the home? N o Smokers outside the home? N o Air Conditioning? Y es Central Air? Y es Forced air heating? Y es Gas or electric? g as Fireplace? N o Wood burning stove? N o Do you vacuum the home? Y es Air purification systems? Y es Is it a HEPA (high-efficiency particulate air filter)? Y es Do you use a humidifier? Y es Whole house or room? r oom humidifier Does it have a humidistat? Y es Is it used year-round, seasonal, or as needed? s easonal Is the humidifier cleaned regularly? Y es Do you own any pets? N o Fabric softeners used? N o Plants in the home? N o Is there carpeting in your bedroom? Y es Age of carpet? 5 Do you have [id number] carpeting? Y es What is the age of your carpeting? 5 What is the age of your mattress (years)? 4 What material(s) are used to manufacture your bedding and pillow? s ynthetic What is the age of your pillow (years)? 1 What material are your bedding items made of? s ynthetic Do you sleep with quilts or blankets or a duvet? Y es What material? s ynthetic T obacco Control (Standard) Tobacco use: F ormer smoker * Medications: T akingCitalopram Hydrobromide 10 MG Tablet 1 tablet Orally Once a day Xyzal Allergy 24HR 5 MG Tablet 1 tablet in the evening Orally twice a day Famotidine 40 MG Tablet 1 tablet as needed Orally Twice a day Mucinex 600 MG Tablet Extended Release 12 Hour 1 tablet as needed Orally every 12 hrs Trelegy Ellipta 100-62.5-25 MCG/ACT Aerosol Powder Breath Activated 1 puff Inhalation Once a day Daliresp 250 MCG Tablet 1 tablet Orally Once a day FiberCon 625 MG Tablet 2 tablets as needed Orally Three times a day Metoprolol Tartrate 50 MG Tablet 1 tablet with food Orally Twice a day Losartan Potassium 50 MG Tablet 1 tablet Orally Once a day hydrOXYzine HCl 25 MG Tablet 1 tablet as needed Orally Once a day guaiFENesin ER 600 MG Tablet Extended Release 12 Hour 1 tablet as needed Orally every 12 hrs Atorvastatin Calcium 20 MG Tablet 1 tablet Orally Once a day Albuterol Sulfate HFA 108 (90 Base) MCG/ACT Aerosol Solution 1 puff as needed Inhalation every 4 hrs Taking Citalopram Hydrobromide 10 MG Tablet 1 tablet Orally Once a day Taking Xyzal Allergy 24HR 5 MG Tablet 1 tablet in the evening Orally twice a day Taking Famotidine 40 MG Tablet 1 tablet as needed Orally Twice a day Taking Mucinex 600 MG Tablet Extended Release 12 Hour 1 tablet as needed Orally every 12 hrs Taking Trelegy Ellipta 100-62.5-25 MCG/ACT Aerosol Powder Breath Activated 1 puff Inhalation Once a day Taking Daliresp 250 MCG Tablet 1 tablet Orally Once a day Taking FiberCon 625 MG Tablet 2 tablets as needed Orally Three times a day Taking Metoprolol Tartrate 50 MG Tablet 1 tablet with food Orally Twice a day Taking Losartan Potassium 50 MG Tablet 1 tablet Orally Once a day Taking hydrOXYzine HCl 25 MG Tablet 1 tablet as needed Orally Once a day Taking guaiFENesin ER 600 MG Tablet Extended Release 12 Hour 1 tablet as needed Orally every 12 hrs Taking Atorvastatin Calcium 20 MG Tablet 1 tablet Orally Once a day Taking Albuterol Sulfate HFA 108 (90 Base) MCG/ACT Aerosol Solution 1 puff as needed Inhalation every 4 hrs Not-Taking/PRNpredniSONE 10 MG Tablet 4 tablets once a day for 2 days, 3 tablets once a day for 2 days, 2 tablets once a day for 2 days, 1 tablet once a day for 2 days Orally Once a day Montelukast Sodium 10 MG Tablet 1 tablet Orally Once a day Loratadine 10 MG Tablet 1 tablet Orally Once a day Apixaban 5 MG Tablet as directed Orally Medication List reviewed and reconciled with the patientNot-Taking/PRN predniSONE 10 MG Tablet 4 tablets once a day for 2 days, 3 tablets once a day for 2 days, 2 tablets once a day for 2 days, 1 tablet once a day for 2 days Orally Once a day Not-Taking/PRN Montelukast Sodium 10 MG Tablet 1 tablet Orally Once a day Not-Taking/PRN Loratadine 10 MG Tablet 1 tablet Orally Once a day Not-Taking/PRN Apixaban 5 MG Tablet as directed Orally Medication List reviewed and reconciled with the patient * Allergies: N .K.D.A.no[Allergies Verified] Objective: * Vitals: B P:143/86mm Hg, HR:76/min, Pulse Oximetry:96%, ACT:14, Ht: 67 in, Wt: 154.6 lbs, BMI:24.21Index. * Examination: G eneral examination: General appearance: p leasant, well-developed, well-nourished. HEENT: c onjunctiva are clear bilaterally, no tenderness to palpation of the sinuses, TM's without evidence of acute infection, turbinates 2+ swollen and pale inferiorly bilaterally, clear rhinorrhea is present, no polyps noted, no septal perforation, posterior oropharynx is clear, no exudates, no tongue swelling, and uvula is midline. Oral cavity: n ormal, no lesions. Neck, thyroid : s upple, non-tender, no anterior cervical lymphadenopathy. Breasts : n ot performed. Heart: R RR, S1-S2, no murmurs, no rubs, no gallops. Lungs: c lear to auscultation and percussion in all lung child, no wheezes or crackles. Neurologic exam: u nremarkable. Skin: , normal, no visible rash. Peripheral pulses: n ormal (2+) bilaterally. Back: n ormal. Extremities: n ormal ROM, no clubbing, no cyanosis, no edema. Genitalia: n ot performed. Assessment: * Assessment: 1. 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 C hronic rhinitis - J31.0 Plan: * Treatment: 2. C hronic rhinitis Notes: Given the history and symptoms, ImmunoCAPs were performed to common aeroallergens to determine atopic status. ImmunoCAPs were negative. * Procedure Codes: 9 6160 PT-FOCUSED HLTH RISK [id number] DOC MEDS VERIFIED W/PT OR [id number] BMI<30 AND >=22 CALC & [id number] BP SCR PRFRM RCMDD DEFIND SCR INTVL * Preventive Medicine: Counseling: M edication instruction: W atch for side effects of prescribed medications, Nasal steroid/antihistamine instruction: avoid septum. E ducation: G ENERAL EDUCATION: Our staff spent an additional 30 minutes in direct contact with the patient educating them on their current diagnoses and proper treatment and prevention of symptoms and the proper use of medications. P atient education material sent to portal? Y es * Follow Up: 4 Weeks * Billing Information: * Visit Code: 62782 Office Visit, Est Pt., Level 3. Modifiers: 25 * Procedure Codes: 85307 PT-FOCUSED HLTH RISK ASSMT. G8427 DOC MEDS VERIFIED W/PT OR RE. G8420 BMI<30 AND >=22 CALC & DOCU. G8783 BP SCR PRFRM RCMDD DEFIND SCR INTVL. * Sign off status: Completed true * Provider: Raul Leiva MD Date: 1 Generated for Abel boothe/Mark/eTransmitting on: 0 06/19/2024 02:36 PM CDT History and Physical Notes * HPI (History of Present Illness) Category Sub-Category Detail Notes Category Not es *Introduction I had the pleasure o f seeing Lawrence Kwon, a 73 year old with HTN, hyperlipidemia presenting for f/u evaluation of pruritus. He is alone for today's visit. He was last evaluated 11-01-2023. Continued itching. He spoke to his PCP about anxiety and concern related to medications. He stopped losartan for 1 week wtihout improvement in itching. He stopped atorvastatin for a few days without improvement in itching. He started Citalopram 10 mg at night and has been taking for about 2 weeks. He reports continued itching on his trunk, posterior legs and upper arms. He sometimes develops hives after itching. He also reports scalp itching which increases when sweating. His daughter is concerned about anxiety playing a role in itching. Some improvement with hydroxyzine but symptoms do not completely resolve. He started Xyzal 5 mg BID and famotidine 20 mg BID without improvement. June 2023, he started developing pruritus. 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 Itching occurs on posterior legs, scalp, abdomen. When he scratches his skin, develops a rash. He started prednisone several times with improvement. He was evaluated at [facility]. He is following with Dr. Guzman for COPD. He is using Dove soap, Head & Shoulders. He does not use moisturizers. Today, he reports no fevers, chills, night sweats or other constitutional symptoms Examination Category Sub-Category Detail Notes Category Not es General examination HEENT: conjunctiva are clear bilaterally, no tenderness to palpation of the sinuses, TM's without evidence of acute infection, turbinates 2+ swollen and pale inferiorly bilaterally, clear rhinorrhea is present, no polyps noted, no septal perforation, posterior oropharynx is clear, no exudates, no tongue swelling, and uvula is midline Neck, thyroid : supple, non-tender, no anterior cervical lymphadenopathy Heart: RRR, S1-S2, no murmu rs, no rubs, no gallops Lungs: clear to auscultatio n and percussion in all lung child, no wheezes or crackles Abdomen: Extremities: normal ROM, no clubb ing, no cyanosis, no edema General appearance: pleasant, well-devel oped, well-nourished Skin: , normal, no visible rash Neurologic exam: unremarkable Oral cavity: normal, no lesions Breasts : not performed Peripheral pulses: normal (2+) bilatera lly Back: normal Genitalia: not performed
--- OUTSIDE RECORDS SUMMARY | 2024-06-19 14:36 | XMS_ITS | Encounter Summary ---
Author Name [facility] [place] [facility] [place] Address [address] [place] [address] Care Team Providers Care Support Representative Name Role Phone LISA GUARDADO Primary Care Provider Unavailabl e Insurance Providers: [...] Policy Pride's Name Patient's Relationship to Policy Pride AARP MEDICARE SUPPLEMEN JAKI MED SUPP F Sep 15, 2015 PLAN F [id number] CAROLA VICENTE PATIENT AARP MED SUPP MEDIGAP PLAN F MEDIC ARE SUPPL EMENT Sep 15, 2015 PLAN F [id number] [phone] CAROLA VICENTE PATIENT [facility] RX PRESCRIPT ION CATER KRYSTAL R Feb 14, 2018 PRXCAT [id number] [phone] CAROLA VICENTE PATIENT MAGELLAN RX ([id number]) PRESCRIPT ION CATER KRYSTAL R Feb 14, 2018 PRXCAT [id number] [phone] CAROLA VICENTE PATIENT MEDICARE (WNR) MEDICARE (M) PART A Sep 15, 2015 PART A [id number] [facility] PATIENT MEDICARE (WNR) MEDICARE (M) PART B Sep 15, 2015 PART B [id number] [facility] PATIENT MEDICARE (WNR) MEDICARE (M) PART A Sep 15, 2015 PART A [id number] [facility],CAROLA CARRILLO PATIENT MEDICARE (WNR) MEDICARE (M) PART B Sep 15, 2015 PART B [id number] [facility] [place] PATIENT [facility] POINT OF SERVICE TOMI Mosley Feb 14, 2001 [id number] CLANIN,CAROLA CARRILLO PATIENT Selected Encounter This section includes the information on record at OR for the Encounter. Date/Time Encounter Type Encounter Description Reason Provider Source Dec 02, 2023 02:30 PM OFFICE O/P EST LOW 20 MIN DERMATOLOGY ICD-10-CM L57.0 Actinic keratosis GEOVANNASANDRA Tiarra Encounter Template Text not used by OR Assessments - Encounter Diagnoses This section includes the primary and secondary diagnoses documented for the Encounter. Date/Time Primary/Secondary Diagnosis Diagnosis Name Provider Source Dec 02, 2023 02:38 PM PR[facility] Dec 02, 2023 02:38 PM SECONDARY Inflamed seborrheic keratosis LOWRY,MIREYA G [facility] Dec 02, 2023 02:38 PM SECONDARY Other melanin [facility]pigmentation [facility] Dec 02, 2023 02:38 PM SECONDARY Other seborrheic keratosis [facility] Plan of Treatment: Future Appointments (+ 6 months) and Future Tests (+/- 45 days) The Plan of Treatment section includes future care activities for the patient from all OR treatmentfacilities. This section includes future appointments and future orders which are active, pending or scheduled. Future Appointments This section includes appointments that were scheduled to occur 6 months from the date of the Encounter, up to a maximum of 20 appointments. The data comes from all [place] treatment facilities. Appointment Date/Time Appointment Type Appointme nt Facility Name Jan 23, 2024 10:30 AM AMBULATORY - MEDICINE [facility] Advance Directives: All historical and current Section Date Range: From patient's date of to the date document was created. This section includes ALL of a patient's completed or amended VA Advance and Rescinded Directives. The entries below indicate that a directive exists for the patient, but an actual copy is not included with this document. The data comes from all OR facilities. Date Advance Directives Provider Source Jun 09, 2007 ADVANCE DIRECTIVE FABBY RITTER SHIRA Bustamante [facility] Encounter Notes: All associated encounter notes This section contains the clinical notes associated to the Encounter. Date/Time Encounter Note(s) Provider Source Dec 02, 2023 02:29 PM DERMATOLOGY CONSUL T: LOCAL TITLE: DERMATOLOGY CONSULT [facility] STANDARD TITLE: DERMATOLOGY CONSULT DATE OF NOTE: DEC 02, 2023@14:29 ENTRY DATE: DEC 02, 2023@14:30:03 AUTHOR: MIREYA LOWRY COSIGNER: SANDRA GARCIAS URGENCY: STATUS: COMPLETED DERMATOLOGY CONSULT [facility] Has ADDENDA [facility] DERMATOLOGY CONSULT NOTE RITESH VICENTE is a 73 year old WHITE MALE who presents for new consult to establish care. He reports a bump on his L scalp that gets bumped by his glasses and when getting his hair cut. No other concerns today. Denies any rashes or new/changing lesions. Allergies: LISINOPRIL ROS: no fever/chills, malaise/fatigue, non-healing sores, new/changing moles, or rashes PE: General Appearance: Well-developed and well-nourished. No acute distress. Neuro/Psych: Alert and cooperative. Appropriate affect. Skin: [place]planck gritty macule on L helix Multiple stuck-on waxy sotomayor plaques, trunk and extremities, one with erythematous rim on L scalp Multiple regular sotomayor to brown round macules, trunk and extremities OTHERWISE: Face: WNL Ears: WNL Scalp, Hair: WNL Neck: WNL Chest: WNL Abd: WNL Back: WNL Upper Extremities: WNL Lower Extremities: WNL Nails: WNL A/P: Actinic keratoses - Discussed premalignant nature with patient - Discussed options including observation, LN2, and Efudex - With verbal consent, LN2 to 1 lesion x6s. Blister care reviewed. ISK - LN2 to 1 lesion on L scalp x8s Seborrheic keratoses Lentigines - Benign, patient reassured Return to clinic 1 year /poonam/ Mireya Lowry MD Dermatology Resident Signed: 12/02/2023 14:38 /poonam/ SANDRA GARCIAS MD PHD STAFF PHYSICIAN - DERMATOLOGY Cosigned: 12/02/2023 15:41 12/02/2023 ADDENDUM STATUS: COMPLETED Reviewed documented history and physical examination and agree with assessment and plan. I was immediately available during entire visit and procedures. /poonam/ SANDRA GARCIAS MD PHD STAFF PHYSICIAN - DERMATOLOGY Signed: 12/02/2023 15:41 MIREYA LOWRY [facility]
--- OUTSIDE RECORDS SUMMARY | 2024-06-19 14:36 | XMS_ITS ---
Author Organization [facility] [place] ([address]) Address [address] [place] [address] Care Team Providers Care Grill Chef Name Role Phone Jennie Vita Primary Care Provider UnavailBarb Schreiber Unavailable [phone] Allergies No Known Allergies REASON FOR VISIT Urticaria/Pruritus follow-up - continued itching, but no rash present Medications Medication SIG (Take, Route, Frequency, Duration) Notes Start Date End Date Status Apixaban 5 MG as directed Orally Not-Taking Mucinex 600 MG 1 tablet as needed Orally every 12 hrs Not-Taking predniSONE 10 MG 4 tablets once a day for 2 days, 3 tablets once a day for 2 days, 2 tablets once a day for 2 days, 1 tablet once a day for 2 days Orally Once a day Not-Taking Montelukast Sodium 10 MG 1 tablet Orally Once a day Not-Taking Citalopram Hydrobromide 10 MG 1 tablet Orally Once a day Not-Taking Loratadine 10 MG 1 tablet Orally Once a day Active predniSONE 10 MG Oral for 12 Days Active hydrOXYzine HCl 25 MG 1 tablet as needed Orally Once a day Not-Taking guaiFENesin ER 600 MG 1 tablet as needed Orally every 12 hrs Not-Taking Atorvastatin Calcium 20 MG 1 tablet Orally Once a day Not-Taking Losartan Potassium 50 MG 1 tablet Orally Once a day Active Albuterol Sulfate HFA 108 (90 Base) MCG/ACT 1 puff as needed Inhalation every 4 hrs Active Metoprolol Tartrate 25 MG 1 tablet with food Orally Twice a day Active Daliresp 250 MCG 1 tablet Orally Once a day Active FiberCon 625 MG 2 tablets as needed Orally Three times a day Active Famotidine 40 MG 1 tablet as needed Orally Twice a day Active NAC 600 MG 1 capsule Orally Onc e a day Active Trelegy Ellipta 100-62.5-25 MCG/ACT 1 puff Inhalation Once a day Active Abiola Hives 24HR [...] Former smoker Vital Signs Blood pressure systolic 134 mm Hg 01/25/20 24 Blood pressure diastolic 78 mm Hg 024 Height 67 in 01/25/2024 Weight 154 lbs 01/25/2024 BMI 24.12 kg/m2 01/25/2024 Oximetry 97 % 01/25/2024 Encounters Encounter Location Date Provider Diagnosis [facility] [address] [place] [id number] 01/25/2024 Barb Leiva Dermatographic urticaria L50.3 and Chronic rhinitis J31.0 Assessments Encounter Date Diagnosis (ICD Code) Assessment Notes Treatment Notes Treatment Clinical Notes Section Notes 01/25/2024 Dermatographic urticaria (ICD-10 - L50.3) Unclear cause for recurrent pruritus. Labs showed normal CBC with differential, CMP, and tryptase. Skin testing was negative but negative histamine control. ImmunoCAPs were negative. Recommend holding fish oil and several vitamins individually for 2-3 weeks at a time. Minimal improvement with antihistamines but start Abiola, Famotidine and Hydroxyzine as needed. Discuss Losartan with Telehealth Director before considering holding. Moisturizer recommended. He is following with Dermatology at [facility] and planning to be evaluated by their new itch specialist. 01/25/2024 Chronic rhinitis (ICD-10 - J31.0) Given the history and symptoms, ImmunoCAPs were performed to common aeroallergens to determine atopic status. ImmunoCAPs were negative. 01/25/2024 Other Plan Of Treatment Medication Medication Name Sig Start Date Stop Date Notes Famotidine 40 MG 1 tablet as needed O rally Twice a day Abiola Hives 24HR 180 MG 1 tablet Swall ow whole with water; do not take with fruit juices. Orally twice a day for 90 days Treatment Notes Assessment Notes Dermatographic urticaria Unclear cause f or recurrent pruritus. Labs showed normal CBC with differential, CMP, and tryptase. Skin testing was negative but negative histamine control. ImmunoCAPs were negative. Recommend holding fish oil and several vitamins individually for 2-3 weeks at a time. Minimal improvement with antihistamines but start Abiola, Famotidine and Hydroxyzine as needed. Discuss Losartan with Telehealth Director before considering holding. Moisturizer recommended. He is following with Dermatology at [facility] and planning to be evaluated by their new itch specialist. Chronic rhinitis Given the history an d symptoms, ImmunoCAPs were performed to common aeroallergens to determine atopic status. ImmunoCAPs were negative. Next Appt Details Follow Up: 4 Months, Reason: Progress Notes * Lawrence KWONDOB:[birth year] (73 yo M)Acc No.[id number]:01/25/2024 Progress Notes Patient: Lawrence MCCAIN Provider: Raul Leiva MD :1950 A ge:73 Y S ex:Male Date:01/25/2024 Address:[address] [place], [place] [id number] Pcp:Vita Schneider Subjective: * Chief Complaints: * U rticaria/Pruritus follow-up - continued itching, but no rash present * HPI: * Introduction: I had the pleasure of seeing Huma Kwon, a 73 year old with HTN, COPD, hyperlipidemia presenting for f/u evaluation of pruritus. He is alone for today's visit. He was last evaluated 11-29-2023. He w as diagnosed wtih shingles about 6 weeks ago. He is continuing to have diffuse itching. He discontinued atorvastatin for about 1 month and no change in itching. He is currently taking prednisone for COPD exacebation and also started NAC. Prednisone has helped the itching but not resolved. He took Citalopram for about 1 month due to concern for anxiety and no change in itching. He reports continued itching on his trunk, posterior legs and upper arms. He sometimes develops hives after itching. He also reports scalp itching which increases when sweating. He started Xyzal 5 mg BID and famotidine 20 mg BID without improvement. June 2023, he started developing pruritus. 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 When he scratches his skin, develops a rash.He started prednisone several times with improvement. He was evaluated at [facility].? He is following with Dr. Guzman for COPD. He is using Dove soap, Head & Shoulders. Today, he reports no fevers, chills, night [...] Age of carpet? 5 Do you have roxr-de-iuzu carpeting? Y es What is the age [...] use: F ormer smoker * Medications: T akingNAC 600 MG Capsule 1 capsule Orally Once a day Trelegy Ellipta 100-62.5-25 MCG/ACT Aerosol Powder Breath Activated 1 puff Inhalation Once a day Daliresp 250 MCG Tablet 1 tablet Orally Once a day FiberCon 625 MG Tablet 2 tablets as needed Orally Three times a day Metoprolol Tartrate 25 MG Tablet 1 tablet with food Orally Twice a day Losartan Potassium 50 MG Tablet 1 tablet Orally Once a day Albuterol Sulfate HFA 108 (90 Base) MCG/ACT Aerosol Solution 1 puff as needed Inhalation every 4 hrs Loratadine 10 MG Tablet 1 tablet Orally Once a day predniSONE 10 MG Tablet Oral Taking NAC 600 MG Capsule 1 capsule Orally Once a day Taking Malissa Coxta 100-62.5-25 MCG/ACT Aerosol Powder Breath Activated 1 puff Inhalation Once a day Taking Daliresp 250 MCG Tablet 1 tablet Orally Once a day Taking FiberCon 625 MG Tablet 2 tablets as needed Orally Three times a day Taking Metoprolol Tartrate 25 MG Tablet 1 tablet with food Orally Twice a day Taking Losartan Potassium 50 MG Tablet 1 tablet Orally Once a day Taking Albuterol Sulfate HFA 108 (90 Base) MCG/ACT Aerosol Solution 1 puff as needed Inhalation every 4 hrs Taking Loratadine 10 MG Tablet 1 tablet Orally Once a day Taking predniSONE 10 MG Tablet Oral Not-Taking/PRNhydrOXYzine HCl 25 MG Tablet 1 tablet as needed Orally Once a day guaiFENesin ER 600 MG Tablet Extended Release 12 Hour 1 tablet as needed Orally every 12 hrs Atorvastatin Calcium 20 MG Tablet 1 tablet Orally Once a day Abiola Hives 24HR 180 MG Tablet 1 tablet Swallow whole with water; do not take with fruit juices. Orally twice a day Famotidine 40 MG Tablet 1 tablet as needed Orally Twice a day Citalopram Hydrobromide 10 MG Tablet 1 tablet Orally Once a day Mucinex 600 MG Tablet Extended Release 12 Hour 1 tablet as needed Orally every 12 hrs predniSONE 10 MG Tablet 4 tablets once [...] List reviewed and reconciled with the patientNot-Taking/PRN hydrOXYzine HCl 25 MG Tablet 1 tablet as needed Orally Once a day Not-Taking/PRN guaiFENesin ER 600 MG Tablet Extended Release 12 Hour 1 tablet as needed Orally every 12 hrs Not-Taking/PRN Atorvastatin Calcium 20 MG Tablet 1 tablet Orally Once a day Not-Taking/PRN Abiola Hives 24HR 180 MG Tablet 1 tablet Swallow whole with water; do not take with fruit juices. Orally twice a day Not-Taking/PRN Famotidine 40 MG Tablet 1 tablet as needed Orally Twice a day Not-Taking/PRN Citalopram Hydrobromide 10 MG Tablet 1 tablet Orally Once a day Not-Taking/PRN Mucinex 600 MG Tablet Extended Release 12 Hour 1 tablet as needed Orally every 12 hrs Not-Taking/PRN predniSONE 10 MG Tablet 4 tablets once [...] N .K.D.A.no[Allergies Verified] Objective: * Vitals: B P:134/78mm Hg, HR:73/min, Pulse Oximetry:97%, Ht: 67 in, Wt: 154 lbs, BMI:24.12Index. * Examination: G eneral examination: General appearance: [...] Procedure Codes: 9 6160 PT-FOCUSED HLTH RISK [id number] DOC MEDS VERIFIED W/PT OR [id number] BMI<30 AND >=22 CALC & [id number] BP SCR PRFRM RCMDD DEFIND SCR INTVL [...] portal? Y es * Follow Up: 4 Months * Billing Information: * Visit Code: 30589 Office Visit, Est Pt., Level 3. Modifiers: 25 * Procedure Codes: 54381 PT-FOCUSED HLTH RISK ASSMT. G8427 DOC MEDS VERIFIED W/PT OR RE. G8420 BMI<30 AND >=22 CALC & DOCU. G8783 BP SCR PRFRM RCMDD DEFIND SCR INTVL. * GING CAR OPERATOR Sign off status: Completed true * Provider: Raul Leiva MD Date: 1 03/27/2023 Generated for Abel boothe/Mark/Oseiitting on: 0 06/19/2024 02:35 PM CDT History and Physical Notes * HPI (History of Present Illness) Category Sub-Category Detail Notes Category Not es *Introduction I had the pleasure o f seeing Lawrence Kwon, a 73 year old with HTN, COPD, hyperlipidemia presenting for f/u evaluation of pruritus. He is alone for today's visit. He was last evaluated 11-29-2023. He was diagnosed wtih shingles about 6 weeks ago. He is continuing to have diffuse itching. He discontinued atorvastatin for about 1 month and no change in itching. He is currently taking prednisone for COPD exacebation and also started NAC. Prednisone has helped the itching but not resolved. He took Citalopram for about 1 month due to concern for anxiety and no change in itching. He reports continued itching on his trunk, posterior legs and upper arms. He sometimes develops hives after itching. He also reports scalp itching which increases when sweating. He started Xyzal 5 mg BID and famotidine 20 mg BID without improvement. June 2023, he started developing pruritus. 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 Itching occurs on posterior legs, scalp, abdomen. When he scratches his skin, develops a rash. He started prednisone several times with improvement. He was evaluated at [facility]. He is following with Dr. Guzman for COPD. He is using Dove soap, Head & Shoulders. Today, he reports no fevers, chills, night [...]
--- OUTSIDE RECORDS SUMMARY | 2024-06-19 14:36 | XMS_ITS | Encounter Summary ---
Author Organization [facility] Healthcare Address [address] [place] [address] Care Team Providers Care Health Informatics Advisor Name Role Phone Vita Schneider Primary Care Pr ovid Encounter Details Date Type Department Care Team (Late st Contact Info) Description 06/18/2024 10:20 AM CDT [address] Centrilobular emphysema (HCC) Social History Tobacco Use Types Packs/Day Years [...] on file Legal Sex Male 1:14 AM VICE PRESIDENT OF CUSTOMER SERVICE Gender Identity Male 01/20/2021 4:57 PM VICE PRESIDENT OF CUSTOMER SERVICE Sexual Orientation Straight 01/20/2021 4: 57 PM VICE PRESIDENT OF CUSTOMER SERVICE documented as of this encounter Plan of Treatment Not on file documented as of this encounter Procedures Procedure Name Priority Date/Time Associated Diagnosis Comments DIFFERENTIAL AUTO Routine 06/18/2024 10: 19 AM CDT Centrilobular emphysema (HCC) CBC WITH AUTO DIFFERENTIAL Routine 06/18/2024 10:19 AM CDT Centrilobular emphysema (HCC) documented in this encounter Results * Differential, auto (06/18/2024 10:19 AM [...] 06/18/2024 1:42 PM CDT us Rosalia Guerrero HEAD CHEF LAB BLOOD ORDERABLES Final Result [facility] ([facility]) [facility] Department [place] [address] * (ABNORMAL) CBC with auto differential (06/18/2024 [...] abs 0.00 0.00 - 0.01 K/cumm [facility] ([facility]) Blood 06/18/2024 10:1 9 AM CDT 06/18/2024 1:42 PM CDT us Rosalia Guerrero HEAD CHEF LAB BLOOD ORDERABLES Final Result [facility] ([facility]) [facility] Department [place] [address] documented in this encounter Visit Diagnoses Diagnosis Centrilobular emphysema (HCC) documented in this encounter Care Teams Health Informatics Advisor Relationship Specialty Start Date End Date Vita Schneider PA PCP - General Physician Home Health Specialist 09/17/19 documented as of this encounter
--- OUTSIDE RECORDS SUMMARY | 2024-06-19 14:36 | XMS_ITS | Referral Summary ---
Author Organization [facility] Address [address] [place] [address] Care Team Providers Care Entomology Professor Name Role Phone Vita Schneider Primary Care Pr ovider Encounters Date Type Department Care Team Description 06/18/2024 10:20 AM CDT Lab [address] Centrilobular emphysema (HCC) 06/18/2024 9:30 AM CDT Office Visit [facility] Pulmonary at [address] [place] [phone] Rosalia Guerrero NP Centrilobular emphysema (HCC) (Primary Dx); Dilated cardiomyopathy (HCC); Cigarette nicotine dependence in remission 04/19/2024 Telephone [facility] Pulmonary at [address] [phone] Marleny Edgar LPN azithromycin from Last 3 Months Allergies Active Allergy Reactions Criticality Noted Date [...] schedule Assessment & Plan (01/17/2024 12:52 PM ELECTRIC DISTRIBUTION CHECKER): Quit in 2014 with a 35+ pack year history Annual low-dose CT due June of 2024 Assessment & Plan (09/15/2023 1:42 PM CDT): Quit in 2014 Annual low-dose CT due June of 2024 Age-related nuclear cataract, bilateral 03/28/19 24 Plantar fascial fibromatosis 03/28/2023 Polyp of colon [...] care Assessment & Plan (01/17/2024 12:54 PM ELECTRIC DISTRIBUTION CHECKER): Continue budesonide per nebulizer once daily Continue [...] 01/14/2022 Assessment & Plan (02/27/2024 8:32 PM ELECTRIC DISTRIBUTION CHECKER): Likely secondary to viral exposure. He has wheezes today and appears fatigued. Harsh cough noted during office visit. Start prednisone and antibiotics, Hydrate and rest. He is aware of signs and symptoms that would require earlier evaluation or change to his plan of care. Assessment & Plan (01/17/2024 12:56 PM ELECTRIC DISTRIBUTION CHECKER): He has mucus that is difficult to [...] he has had in over a year Lumbago with sciatica 01/10/2022 Ventricular premature complex 01/10/2022 [...] cardiology Assessment & Plan (01/17/2024 12:52 PM ELECTRIC DISTRIBUTION CHECKER): Last EF visually estimated at 45% per [...] 1 Assessment & Plan (02/27/2024 8:35 PM ELECTRIC DISTRIBUTION CHECKER): Continue Trelegy Ellipta 100 daily and budesonide [...] 01/10/2022 06/03/2023 Severe chronic obstructive pulmonary disease 01/17/2024 Chronic obstructive pulmonary disease 06/18/2021 09/15/2023 Assessment & Plan (09/02/2023 4:18 PM CDT): Sees Dr. Guzman (Pulmonology). Not on O2. Outpatient regimen: Trelegy Ellipta qday, Pulmicort BID, albuterol neb BID, albuterol rescue inhaler prn, roflumilast 250mcg qday, Mucinex. - Continue Hyperlipidemia 01/02/2019 06/03/2023 Essential hypertension 06/30/201306/02 Overview (05/21/2016): Hypertension Tobacco dependence syndrome 02/27/2009 09/15/2023 Overview (05/21/2016): TOBACCO USE DISORDER Social History Tobacco Use Types Packs/Day Years [...] on file Legal Sex Male 1:14 AM ELECTRIC DISTRIBUTION CHECKER Gender Identity Male 01/20/2021 4:57 PM ELECTRIC DISTRIBUTION CHECKER Sexual Orientation Straight 01/20/2021 4: 57 PM ELECTRIC DISTRIBUTION CHECKER Last Filed Vital Signs Vital Sign Reading Time Taken Comments Blood Pressure 124/62 06/18/2024 9:27 AM CDT Pulse 92 06/18/2024 9:27 AM CDT Temperature 36.8 C (98.2 F) 06/18/2024 9:27 AM CDT Respiratory Rate 16 02/27/2024 2:30 PM ELECTRIC DISTRIBUTION CHECKER Oxygen Saturation 95% 06/18/2024 9:27 AM CDT Inhaled Oxygen Concentration - - Weight 63.9 kg (140 lb 12.8 oz) 06/18/2024 9:27 AM CDT Height 170.2 cm (5' 7 ) 06/18/2024 9:27 AM CDT Body Mass Index 22.05 06/18/2024 9:27 AM CDT Plan of Treatment Not on file Medical Devices Implanted Type Area [employer] Device Identifier Shelf Expiration Date Model / Serial / Lot [employer] Vascade Mvp 6-12fr Venous Closure [id number] - [id number] - [id number] Implanted:Qty: 1 on 09/02/2023 by Kerry Machado MD at [facility] Collagen Right: Femoral Vein [employer] 03/03/2025 [id number] [id number] / [id number] 29A / [id number] 29A [employer] Vascade Mvp 6-12fr Venous Closure [id number] - [id number] - [id number] Implanted:Qty: 1 on 09/02/2023 by Kerry Machado MD at [facility] Collagen Right: Femoral Vein [employer] 01/05/2025 [id number] 10U / [id number] 30A / [id number] 30A [employer] Device Vascular Closure Femoral Artery Bioabsorbable Dual Method Vascade 6-7fr Collagen [id number] - [id number] - [id number] Implanted:Qty: 1 on 09/02/2023 by Kerry Machado MD at [facility] Collagen Left: Femoral Vein [employer] 05/17/2025 [id number] 05U / [id number] / [id number] Hernia Mesh Abdomen Procedures [...] 0.02 0.00 - 0.10 K/cumm [facility] ([facility]) Lymphocyte abs 0.87 0.80 - 3.30 K/cumm [...] 06/18/2024 1:42 PM CDT us Rosalia Guerrero SOLAR PANEL INSTALLER LAB BLOOD ORDERABLES Final Result CATALINA ZOEY (JOSE) 1 [facility] Department [place] [address] * (ABNORMAL) CBC with auto differential (06/18/2024 [...] RDW CV 14.3 11.1 - 14.9 % [facility] (JOSE) RDW SD 49.0(H) 35.7 - 48.1 fL [facility] (JO[facility]) NRBC abs 0.00 0.00 - 0.01 K/cumm [facility] (JOSE) Blood 06/18/2024 10:1 9 AM CDT 06/18/2024 1:42 PM CDT us Rosalia Guerrero SOLAR PANEL INSTALLER LAB BLOOD ORDERABLES Final Result CATALINA GREER (JOSE) 1 [facility] Department [place] [address] * CT Lung Cancer Screening (07/14/2023 8:20 [...] by Godwin Hernandez M.D. JR: Report ID: [id number] Reading Location: [place] [address] Procedure Note Godwin Hernandez MD - 07/14/2023 [...] by Godwin Hernandez M.D. JR: Report ID: [id number] Reading Location: [place] [address] Omar Guzman MD IM CT PROCEDURES Final Result from Last 3 Months or Most Recently Relevant to Health Maintenance Insurance MEDICARE [facility] Member Subscriber Plan / Payer (Ef fective 2017-Present) Name:Ritesh Kwon Relation to Subscriber:Self Name:Ritesh Kwon Payer ID:[id number] Group ID:[id number] Type:COMMERCIAL Address: [place] [id number] [place] [id number] MEDICARE [facility] MEDICARE [facility] MEDICARE [facility] Advance Directives For more information, please contact: [phone] * Full Code (Latest Code Status on File) Date Activated Date Inactivated Comments 09/02/2023 3:45 PM 09/03/2023 5:41 PM Care Teams Entomology Professor Relationship Specialty Start Date End Date Vita Schneider PA PCP - General Physician Tooling Inspector 09/17/19
--- OUTSIDE RECORDS SUMMARY | 2024-06-19 14:36 | XMS_ITS | Continuity of Care Document ---
Author Organization [facility] Address [address] [place] [address] Phone Care Team Providers Care Case Management Director Name Role Phone Ralph Romero MD Unavailable Unavailable Allergies, Adverse Reactions, Alerts Substance Reaction Status Criticality No Known Allergies Active No Inform ation Advance Directives Directive Yes / No Effective Date File Name No Information Encounters Encounter Description Practice Location Reason(s) For Visit Diagnoses Date Provider Providers Copied on Encounter [facility], [address], [place], [id number], tel:[phone] [facility] No Information Nick Rosas. [address] [place], [place], [id number], . tel:[phone] Referring Provider: Ralph Romero [address] [place], [place], [id number]. tel:[phone] Family History Family Member Type Diagnosis Age At Onset No Information Payers Payer name Insurance type Covered constitution party ID Authoriza tion(s) No Information Social History Type Description Quantity Date Captured Comments Alcohol Use Details Caffeine Use Details Unknown Tobacco Use Status Ex-cigarette smoker 018 Smoking Status Former smoker Smoking Tobacco Use Details Cigarette: No Details Available Cigarette: No Details Available Non-Smoking Tobacco Use Details : No Details Available : No Details Available Sex Male Vital Signs Date / Time: Height Weight BMI Pulse Rate Blood Pressure Temperature Respiratory Rate Body Surface Area Head Circumference BMI percentile Pulse Ox Inhaled Ox 11:40 AM 67.25 in 176.20 lbs 27.3 9 kg/m eter (2) 87 /min 147/103 mm[Hg] 96.9 F 16 /min Chief Complaint And Reason For Visit No Information Plan Of Treatment Date Type Action Status No Information History Of Present Illness Encounter Date Complaint History Of Prese nt Illness No Information Instructions Date Instruction Additional Infor mation No Information Assessments Type Assessment Date No Information
--- OUTSIDE RECORDS SUMMARY | 2024-06-19 14:36 | XMS_ITS | Clinical Summary ---
Author Organization 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 Gender Identity Not on file Sexual Orientation Not on file Plan of Treatment Health Maintenance Due Date Last Done Comments Hepatitis C Virus (HCV) Screening 1950 TdaP Immunization 1950 Colonoscopy 09/23/1995 Colorectal Cancer Screening 09/23/1995 Cologuard 2000 Immunochemical Fecal Occult Blood 2000 Pneumococcal Immunization (5 0+ years) (1 of 1 - PCV) 2000 Zoster Immunization (1 of 2) 2000 Influenza Immunization (#1) 2023 SARS-COV-2 Immunization (2 - 2023- season) 2023 01/07/2021 Respiratory Syncytial Virus (RSV) Immunization (Adult) (1 - 1-dose 75+ series) 2025 PSA Discussion Discontinued 08/15/2019, 08/05/2015, 07/03/2012 Hepatitis B Immunization Aged Out No longer eligible based on patient's age to complete this topic Meningococcal Immunization (ACWY) Aged Out No longer eligible based on patient's age to complete this topic Rotavirus Immunization Aged Out No lo nger eligible based on patient's age to complete this topic Procedures Procedure Name Priority Date/Time Associated Diagnosis Comments PSA DIAGNOSTIC,TOTAL Routine 08/15/2019 1:23 PM CDT Elevated PSA from Last 3 Months or Most Recently Relevant to Health Maintenance Results * (ABNORMAL) PSA DIAGNOSTIC,TOTAL (08/15/2019 1:23 PM CDT) PSA, TOTAL (PROSTATIC SPECIFIC ANTIGEN) 6.02(H) <4.00 ng/mL 08/15/2019 5:[address] [facility] Blood Venipuncture / Unknown 08/15/2019 1:23 PM CDT 08/15/2019 1:[address] [facility] - 08/15/2019 5:17 PM CDT The DIRECTOR OF ORTHOPEDICS Total PSA assay is a Chemiluminescent Microparticle Immunoassay (CMIA) for the quantitative determination of total PSA (both free PSA and PSA complexed to [id number]-[id number]) in human serum. us Rivera Correa MD CHEMISTRY ORDERABLES Final Resu lt [facility] [address] [place] [address], from Last 3 Months or Most Recently Relevant to Health Maintenance Insurance MEDICARE [facility] Care Teams Retail Maintenance Technician Relationship Specialty Start Date End Date Rivera Crorea MD PCP - General Urology 07/03/12
--- OUTSIDE RECORDS SUMMARY | 2024-06-19 14:36 | XMS_ITS ---
Author Organization [facility] ([address]) Address [address] [place] [address] Care Team Providers Care Retail Center Receptionist Name Role Phone Vita Schneider Primary Care Provider Unavailab Barb Issa Unavailable [phone] Allergies No Known Allergies Results Component Value Reference Range Notes -Respiratory Allergens w/Tot al IgE Area 8 Reviewed date:11/14/2023 02:11:45 PM Interpretation:Normal Performing Lab:[facility], [address] [place] [id number], Phone - [phone], Director - Rojelio Notes/Report: Class Description Levels of Specific IgE Class Description of Class ----- < 0.10 0 Negative 0.10 - 0.31 0/I Equivocal/Low 0.32 - 0.55 I Low 0.56 - 1.40 II Moderate 1.41 - 3.90 III High 3.91 - 19.00 IV Very High 19.01 - 100.00 V Very High >100.00 Very High Immunoglobulin E, Total 52 6-495 IU/mL I800-BuL D pteronyssinus <0.10 Class 0 kU/L Q924-TlP D farinae <0.10 Class 0 kU/L I146-HmO Cat Dander <0.10 Class 0 kU/L R176-EoN Dog Dander <0.10 Class 0 kU/L E230-XnH Mouse Urine <0.10 Class 0 kU/L J500-SfY Bermuda Grass <0.10 Class 0 kU/L T222-CmH Bernardino Grass <0.10 Class 0 kU/L U443-NvH Cockroach, Greenlandic <0.10 Class 0 kU/L O903-OdN Penicillium chrysogen <0.10 Class 0 kU /L A436-PvN Cladosporium herbarum <0.10 Class 0 kU /L G261-WgN Aspergillus fumigatus <0.10 Class 0 kU /L Q027-IeE Alternaria alternata <0.10 Class 0 kU/ L G401-GdB Maple/Tyrone <0.10 Class 0 kU/L M413-DpM Hyannis, Mountain <0.10 Class 0 kU/L J963-EyS Minoa, White <0.10 Class 0 kU/L W696-BjV Elm, Canadian <0.10 Class 0 kU/L U628-NmD Ridge[place] <0.10 Class 0 kU/L Q025-XpX Maple [place] <0.10 Class 0 kU/L F512-BnI [place] <0.10 Class 0 kU/L C302-LmE David, White <0.10 Class 0 kU/L U613-QgA Pecan, Denali <0.10 Class 0 kU/L Q369-ZtQ White Emerson <0.10 Class 0 kU/L V921-CnU Ragweed, Short <0.10 Class 0 kU/L S602-EaY Thistle, Palauan <0.10 Class 0 kU/L P104-HpH Pigweed, Common <0.10 Class 0 kU/L L123-GbN Rough Marshelder <0.10 Class 0 kU/L REASON FOR VISIT Urticaria follow-up - continuing pruritus and hives Medications Medication SIG (Take, Route, Frequency, Duration) Notes Start Date End Date Status Losartan Potassium 50 MG 1 tablet Orally Once a day Active hydrOXYzine HCl 25 MG 1 tablet as needed Orally Once a day Active Metoprolol Tartrate 50 MG 1 tablet with food Orally Twice a day Active guaiFENesin ER 600 MG 1 tablet as needed Orally every 12 hrs Active Budesonide 1 MG/2ML 1 mL Inhalation Twic e a day Active Apixaban 5 MG as directed Orally Not-Taking Mucinex 600 MG 1 tablet as needed Orally every 12 hrs Active FiberCon 625 MG 2 tablets as needed Orally Three times a day Active Daliresp 250 MCG 1 tablet Orally Once a day Active Trelegy Ellipta 100-62.5-25 MCG/ACT 1 puff Inhalation Once a day Active Montelukast Sodium 10 MG 1 tablet Orally Once a day Not-Taking Loratadine 10 MG 1 tablet Orally Once a day Not-Taking Famotidine 40 MG 1 tablet as needed Orally Twice a day Active predniSONE 10 MG 4 tablets once a day for 2 days, 3 tablets once a day for 2 days, 2 tablets once a day for 2 days, 1 tablet once a day for 2 days Orally Once a day Not-Taking Xyzal Allergy 24HR 5 MG 1 tablet in the evening Orally twice a day for 30 days Active Albuterol Sulfate HFA 108 (90 Base) [...] Status Risk Notes Problem Chronic allergic conjunctivitis (26897680) Other chronic allergic conjunctivitis (H10.45) Active confirmed Problem Chronic rhinitis (38199134) Chronic rhinitis (J31.0) Active confirmed Problem Allergic rhinitis caused by pollen (disorder) (54090949) Allergic rhinitis due to pollen (J30.1) Active confirmed Vital Signs Blood pressure systolic 153 mm Hg 11/01/19 24 Blood pressure diastolic 83 mm Hg 024 Height 67 in 11/01/2023 Weight 157.0 lbs 11/01/2023 BMI 24.59 kg/m2 11/01/2023 Oximetry 95 % 11/01/2023 Encounters Encounter Location Date Provider Diagnosis [facility] [address] [place] [phone] 11/01/2023 Barb Leiva Dermatographic urticaria L50.3 ; Other chronic allergic conjunctivitis H10.45 ; Chronic rhinitis J31.0 and Allergic rhinitis due to pollen J30.1 Assessments Encounter Date Diagnosis (ICD Code) Assessment [...] with antihistamines and anxiety becomes under control. 11/01/2023 Other chronic allergic conjunctivitis (ICD-10 - H10.45) 11/01/2023 Chronic rhinitis (ICD-10 - J31.0) 11/01/2023 Allergic rhinitis due to pollen (ICD-10 - J30.1) 11/01/2023 Other Plan Of Treatment Medication Medication Name Sig Start Date Stop Date Notes Famotidine 40 MG 1 tablet as needed O rally Twice a day Xyzal Allergy 24HR 5 MG 1 tablet in the evening Orally twice a day for 30 days Treatment Notes Assessment Notes Dermatographic urticaria [...] with antihistamines and anxiety becomes under control. Pending Test Test Name Order Date -Immunoglobulin E, Total 11/01/2023 Next Appt Details Follow Up: 4 Weeks, Reason: Procedure Notes * Category Sub-Category Detail Notes Skin Testing Number of Skin Tests Performed (including controls): Aeroallergen: Yes Epicutaneous: 72 Epicutaneous (New) skin testing was per formed to common aeroallergens nothing revaled positive and positive did not respong Progress Notes * Deejay KWONB:[birth year] (73 yo M)Acc No.[id number]:11/01/2023 Skin Testing Patient: Lawrence MCCAIN Provider: Raul Leiva MD :1950 A ge:73 Y S ex:Male Date:11/01/2023 Address:[address], [id number] Pcp:Vita Schneider Subjective: * Chief Complaints: * U rticaria follow-up - continuing pruritus and hives * HPI: * Introduction: I had the pleasure of seeing Huma Kwon, a 73 year old with HTN, hyperlipidemia presenting for f/u evaluation of pruritus. He is alone for today's visit. He reports continued itching on the back and upper arms. He develops hives after itching. He also reports scalp itching which increases when sweating. His daughter is concerned about anxiety playing a role in itching. Some improvement with hydroxyzine but symptoms do not completely resolve. He started Xyzal 5 mg BID but has not started famotidine 40 mg BID. He is now off prednisone. June 2023, he started developing pruritus. 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 When he scratches his skin, develops a rash.He started prednisone several times with improvement. He was evaluated at [facility] a few weeks ago. He started Zyrtec 4 tablets daily without improvement in the itching. He is following with Dr. Guzman for [...] of drinks per occasion: 3 Frequency? W eekly S moking Have you ever smoked tobacco: f ormer [...] Age of carpet? 5 Do you have tgnp-lo-hinw carpeting? Y es What is the age [...] use: F ormer smoker * Medications: T akingMucinex 600 MG Tablet Extended Release 12 Hour [...] tablet as needed Orally every 12 hrs Budesonide 1 MG/2ML Suspension 1 mL Inhalation Twice a day Atorvastatin Calcium 20 MG Tablet 1 tablet Orally Once a day Albuterol Sulfate HFA 108 (90 Base) MCG/ACT Aerosol Solution 1 puff as needed Inhalation every 4 hrs Xyzal Allergy 24HR 5 MG Tablet 1 [...] as needed Orally every 12 hrs Taking Budesonide 1 MG/2ML Suspension 1 mL Inhalation Twice a day Taking Atorvastatin Calcium 20 MG Tablet 1 tablet Orally Once a day Taking Albuterol Sulfate HFA 108 (90 Base) MCG/ACT Aerosol Solution 1 puff as needed Inhalation every 4 hrs Taking Xyzal Allergy 24HR 5 MG Tablet 1 tablet in the evening Orally twice a day Taking Famotidine 40 MG Tablet 1 tablet as needed Orally Twice a day Not-Taking/PRNpredniSONE 10 MG Tablet 4 tablets once [...] N .K.D.A.no[Allergies Verified] Objective: * Vitals: B P:153/83mm Hg, HR:99/min, Pulse Oximetry:95%, ACT:22, Ht: 67 in, Wt: 157.0 lbs, BMI:24.59Index. * Examination: G eneral examination: General appearance: [...] or crackles. Neurologic exam: u nremarkable. Skin: e rythematous, raised areas on posterior upper legs and upper arms. Peripheral pulses: n ormal (2+) bilaterally. Back: n ormal. Extremities: n ormal ROM, no clubbing, no cyanosis, no edema. Genitalia: n ot performed. Assessment: * Assessment: 1. 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 O ther chronic allergic conjunctivitis - H10.45 3 . C hronic rhinitis - J31.0 4 . A llergic rhinitis due to pollen - J30.1 Plan: * Treatment: 2. O ther chronic allergic conjunctivitis L AB: -Immunoglobulin E, Total L AB: -Respiratory Allergens w/Total IgE Area 8 3. C hronic rhinitis L AB: -Immunoglobulin E, Total L AB: -Respiratory Allergens w/Total IgE Area 8 4. A llergic rhinitis due to pollen L AB: -Immunoglobulin E, Total L AB: -Respiratory Allergens w/Total IgE Area 8 * Procedures: S kin Testing: Number of Skin Tests Performed (including controls): A eroallergen Y es E picutaneous 7 2 Epicutaneous (New) s kin testing was performed to common aeroallergens nothing revaled positive and p ositive did not respong . ? * Procedure Codes: 9 6160 PT-FOCUSED HLTH RISK [id number] DOC MEDS VERIFIED W/PT OR [id number] BMI<30 AND >=22 CALC & IAGOS3027 BP SCR PRFRM RCMDD DEFIND SCR [id number] PRICK TESTS, Units: 72.00 * Preventive Medicine: Counseling: M edication instruction: [...] Weeks * Billing Information: * Visit Code: 59045 Office Visit, Est Pt., Level 4. Modifiers: 25 * Procedure Codes: 16692 PT-FOCUSED HLTH RISK ASSMT. G8427 DOC MEDS VERIFIED W/PT OR RE. G8420 BMI<30 AND >=22 CALC & DOCU. G8783 BP SCR PRFRM RCMDD DEFIND SCR INTVL. 73954 PRICK TESTS. Units: 72.00. Images * mobile_11/01/2023 08:53:38 * Sign off status: Completed true * Provider: Raul Leiva MD Date: 0 11/01/2023 Generated for Torresi tl/Mark/Oseiitting on: 0 06/19/2024 02:36 PM CDT History and Physical Notes * HPI (History of Present Illness) Category Sub-Category Detail Notes Category Not es *Introduction I had the pleasure o f seeing Lawrence Kwon, a 73 year old with HTN, hyperlipidemia presenting for f/u evaluation of pruritus. He is alone for today's visit. He reports continued itching on the back and upper arms. He develops hives after itching. He also reports scalp itching which increases when sweating. His daughter is concerned about anxiety playing a role in itching. Some improvement with hydroxyzine but symptoms do not completely resolve. He started Xyzal 5 mg BID but has not started famotidine 40 mg BID. He is now off prednisone. June 2023, he started developing pruritus. 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 Itching occurs on posterior legs, scalp, abdomen. When he scratches his skin, develops a rash. He started prednisone several times with improvement. He was evaluated at [facility] a few weeks ago. He started Zyrtec 4 tablets daily without improvement in the itching. He is following with Dr. Guzman for [...] General appearance: pleasant, well-devel oped, well-nourished Skin: erythematous, raised areas on posterior upper legs and upper arms Neurologic exam: unremarkable Oral cavity: normal, no lesions Breasts : not performed Peripheral pulses: normal (2+) bilatera lly Back: normal Genitalia: not performed
--- OUTSIDE RECORDS SUMMARY | 2024-06-19 14:37 | XMS_ITS | Data Portability ---
Author Organization [facility], Main Office Address [address] [place] [address] Assessment Encounter Date Assessment Date Assessment LastModified by Organization Details LastModified Time 05/12/2020 05/12/2020 Renewed duonebs and medication as noted below. All medication directions, interactions, adverse effects reviewed. Follow up in 2 weeks, or PRN through walk in if concerns arise before next scheduled appt. Not available 05/12/2020 13:59:09 12/23/2020 12/23/2020 Begin medications as directed. Rx for budesonide given for Pt to discuss with his inseamer for consideration. All medication directions, interactions, adverse effects reviewed. Follow up in 2 weeks, or PRN through walk in if concerns arise before next scheduled appt. Not available 12/24/2020 17:36:27 Plan of Treatment Reminders Order Date Submit Date Provider Last Modified By Organization Details Last Modified Time Details Appointments None recorded. Lab None recorded. Referral None recorded. Procedures None recorded. Surgeries None recorded. Imaging None recorded. Medication Orders budesonide 1 mg/2 mL suspension for nebulizati on 2021 022 ANDREIA [id number], [address], [place], [address], 09:12:48 doxycyclin e hyclate 100 mg capsule 2020 022 ATHENAFAX [facility], [address], [place], [address], 03/04/202 2 08:50:15 Medrol (Martin) 4 mg tablets in a dose pack [address] [facility], [address] [place], [address], 2 08:50:15 budesonide 1 mg/2 mL suspension for nebulizati on 2020 021 [email or web address] Not available 11:39:25 doxycyclin e hyclate 100 mg capsule [facility] [address], [place], [address], 2 08:43:03 Medrol (Martin) 4 mg tablets in a dose pack [email or web address], [address] , [place], [address], 2 08:43:32 ipratropiu m 0.5 mg-albuter ol 3 mg (2.5 mg base)/3 mL nebulizati on soln [address] [facility], [address] , [place], [address], 13:55:31 Patient TargetsNo targets recorded. Patient InstructionsNo instructions recorded. Reason for Referral None Reported. Medical Equipment None Reported. Allergies No known drug allergies Medications Name Sig Start Date Stop Date Status Note LastModified by Organization Details LastModified Time losartan 50 mg tablet Take 1 tablet every day by oral route. active Not Available Not Available No t Available doxycycline hyclate 100 mg capsule Take 1 capsule twice a day by oral route for 10 days. 04/17 completed Not Available Not Available Not Available atorvastati n 20 mg tablet Take 1 tablet every day by oral route. active Not Available Not Available No t Available ipratropium 0.5 mg-albutero l 3 mg (2.5 mg base)/3 mL nebulizatio n soln Inhale 3 mL every 4 hours by nebulizat ion route as needed. 2020 active Not Available Not Available Not Avai lable Medrol (Martin) 4 mg tablets in a dose pack Take 1 dose pk by oral route as directed. 04/17 completed Not Available Not Available Not Available azithromyci n 500 mg tablet Take 1 tablet every other day by oral route for 3 days. active Not Available Not Available No t Available hydrochloro thiazide 12.5 mg tablet Take 1 tablet every day by oral route. active Not Available Not Available No t Available budesonide 1 mg/2 mL suspension for nebulizatio n Inhale 2 mL twice a day by nebulizat ion route. 2021 active Not Available Not Available Not Avai lable Trelegy Ellipta 100 mcg-62.5 mcg-25 mcg powder for inhalation Inhale 1 puff every day by inhalatio n route. active Not Available Not Available No t Available Vitals Date Recorded Heart rate Respiratory rate Body temperature Body weight Body height Body mass index (BMI) Oxygen saturation Oxygen saturation in Arterial blood by Pulse oximetry Systolic blood pressure Diastolic blood pressure Provider Name and Address Organization Details Last Updated DateTime 1 82 /min 20 /min 96.8 [degF] 73868.8 9 g 170.18 cm 26.9 kg/m2 96 % 96 % 159 mm[Hg] 81 mm[Hg] [facility] 1 13:09:04 Date Recorded Body height Heart rate Respiratory rate Body temperature Body mass index (BMI) Body weight Oxygen saturation Oxygen saturation in Arterial blood by Pulse oximetry Systolic blood pressure Diastolic blood pressure Provider Name and Address Organization Details Last Updated DateTime 1 170.18 cm 87 /min 20 /min 97.2 [degF] 26.8 kg/m2 39982.3 g 94 % 94 % 132 mm[Hg] 76 mm[Hg] [facility] 1 11:18:32 Date Recorded Body height Heart rate Respiratory rate Body temperature Body mass index (BMI) Body weight Systolic blood pressure Diastolic blood pressure Provider Name and Address Organization Details Last Updated DateTime 2 170.18 cm 78 /min 20 /min 98.2 [degF] 27.4 kg/m2 47466.6 6 g 142 mm[Hg] 76 mm[Hg] Parent [facility] 08:44:58 Social History Question Answer Notes LastModified by Organizat ion Details LastModified Time Tobacco Smoking Status Former Smoker Parent null, [facility] 05/12/2020 12:45:46 What Is Your Level Of Alcohol Consumption? Occasional Information not available 12/23/2020 Are You Blind Or Do You Have Difficulty Seeing? No Information not available 12/23/2020 What Is Your Level Of Caffeine Consumption? Occasional Information not available 12/23/2020 Are You Deaf Or Do You Have Serious Difficulty Hearing? No Information not available 12/23/2020 Hard Of Hearing Or Deaf In One Or Both Ears? No Information not available 05/12/2020 Live Alone Or With Others? With Others Information not available 05/12/2020 What Was The Date Of Your Most Recent Tobacco Screening? 04/17/2021 Information not available 04/17/2021 What Is Your Relationship Status? Information not available 12/23/2020 Seat Belts Used Routinely Yes Information not available 05/12/2020 Smoke Alarm In Home Yes Information not available 05/12/2020 Do You Have Smoke And Carbon Monoxide Detectors In Your Home? Yes Information not available 12/23/2020 Are You Passively Exposed To Smoke? No Information no t available 05/12/2020 Do You Use Any Illicit Or Recreational Drugs? No Information not available 12/23/2020 Do You Use Sunscreen Routinely? Yes Information not available 05/12/2020 Do You Or Have You Ever Used Any Other Forms Of Tobacco Or Nicotine? No Information not available 12/23/2020 Sex: Unknown Functional Status Question Answer Note LastModified by Organizat ion Details LastModified Time Do you have difficulty walking or climbing stairs? No Information not available 12/23/2020 Do you have transportation difficulties? No Information not available 12/23/2020 Are you able to walk? YESWOREST Information not available 05/12/2020 Do you have difficulty doing errands alone? No Information not available 12/23/2020 Are you able to care for yourself? Yes Information n ot available 05/12/2020 Do you have difficulty dressing or bathing? No Information not available 12/23/2020 What is your exercise level? Occasional Information not available 05/12/2020 Mental Status None recorded. Family History Nothing Reported. Medical History Condition Response Hypertension Y Immunizations Vaccine Type Date Status Note Provider Nam e and Address Organization Details Recorded Time Influenza, split virus, quadrivalent, preservative 0 completed Kim camp, [facility] 05/12/2020 12:44:36 zoster live 1 [facility] 12:44:52 Past Encounters Encounter ID Performer Location Encounter Start Date Encounter Closed Date Diagnosis/Indication Diagnosis SNOMED-CT Code Diagnosis ICD10 Code Diagnosis Note [id number] Tila Zazueta PA-C Main Office [address] [place] [phone] 05/12/2020 11:24:57 05/12/2020 14:04:09 Acute exacerbation of bronchiectasis 157830470 J47.1 Acute exac erbation of chronic obstructive pulmonary disease 849553335 J44.1 [id number] Vic Andrews, Main Office [address] [place] [address] [phone] 12/23/2020 10:58:21 12/30/2020 17:00:24 Acute exacerbation of bronchiectasis 059518075 J47.1 Acute exac erbation of chronic obstructive pulmonary disease 337159681 J44.1 [id number] Jaime Levy, Main Office [address] [place] [phone] 04/17/2021 08:25:43 04/17/2021 09:52:38 Bronchiectasis 55706751 J47.9 Budesonide renewed as directed per nebulizer. Patient agreed to continue all current medication s and follow up p.r.n. if concerns arise before he returns to [place] in May. Health Concerns Section Related Observation LastModified by Organization Detai ls LastModified Time None Recorded Concern Status LastModified by Organization Details LastModified Time None Recorded Advance Directives Directive None Recorded Payers Encounter Date Sequence Insurance Name Policy Number Policy Pride Covered Member ID Pride Member ID Guarantor Name 05/12/2020 1 [place] Lawrence W Clanin [id number] Lawrence Clanin 05/12/2020 2 [employer] HE[employer] OPTIONS (MEDICARE SUPPLEMENT) Lawrence Clanin [id number] Lawrence Clanin 12/23/2020 1 [place] Lawrence W Clanin [id number] Lawrence Clanin 12/23/2020 2 [employer] HE[employer] OPTIONS (MEDICARE SUPPLEMENT) Lawrence Clanin [id number] Lawrence Clanin 04/17/2021 1 [place] Lawrence W Clanin [id number] Lawrence Clanin 04/17/2021 2 [employer] HE[employer] OPTIONS (MEDICARE SUPPLEMENT) Lawrence Clanin [id number] Lawrence Clanin Notes Date Note Type Note Provider Name and Address Organization Details Recorded Time 05/12/2020 text/html Long history of COPD. Pt having exacerbation of COPD. Wheezing and shortness of breath x 1 week. Pt has been using his nebulizer. Thick white mucus small amount sometimes coming up with cough. Pt has had doxycycline and medrol dose pack as directed per his inseamer. He quit smoking 7 yrs ago. ROLAND Fernández [facility] 05/12/2020 14:00:18 12/23/2020 text/html Pt c/o cough, thick mucus x 1 week. Long history of COPD/bronchiectasi s. Pt is followed by inseamer. He uses trelegy inhaler and he has been using his duoneb in nebulizer. Thick white mucus small amount sometimes coming up with cough. Pt has had doxycycline and medrol dose pack as directed per his inseamer. He quit smoking 7 yrs ago. ROLAND Fernández [facility] 12/24/2020 17:36:58 04/17/2021 text/html patient needs refill on budesonide suspension for his nebulizer. History of bronchiectasis. He is followed by pulmonology in [place]. He will be returning to [place] in May. Valeria camp MA - [facility] 04/17/2021 09:13:09
--- OUTSIDE RECORDS SUMMARY | 2024-06-19 14:37 | XMS_ITS | Encounter Summary ---
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 Name Role Phone RONALOTIS LISA Primary Care [...] SUPP F Sep 15, 2015 PLAN F [id number] CAROLA VICENTE PATIENT AARP MED SUPP MEDIGAP PLAN F MEDIC ARE SUPPL EMENT Sep 15, 2015 PLAN F [id number] [phone] CAR[place]A VICENTE PATIENT [facility] RX PRESCRIPT ION CATER KRYSTAL R Feb 14, 2018 PRXCAT [id number] [phone] CAROLA VICENTE PATIENT [facility] RX ([id number]) PRESCRIPT ION CATER KRYSTAL R Feb 14, 2018 PRXCAT [id number] [id number] CAROLA VICENTE PATIENT MEDICARE (WNR) MEDICARE (M) PART A Sep 15, 2015 PART A [id number] [phone] CLANIN,CL IFFORD PATIENT MEDICARE (WNR) MEDICARE (M) PART A Sep 15, 2015 PART A [id number] [facility] CLANIN,CL IFFORD PATIENT MEDICARE (WNR) MEDICARE (M) PART B Sep 15, 2015 PART B [id number] [phone] CLANIN,CL IFFORD PATIENT MEDICARE (WNR) MEDICARE (M) PART B Sep 15, 2015 PART B [id number] [facility] [phone] CLANIN,CL IFFORD PATIENT [facility] POINT OF SERVICE TOMI Mosley Feb 14, 2001 [id number] CLANIN,CL IFFORD PATIENT Selected Encounter This section includes the information on record at [place] for the Encounter. Date/Time Encounter Type Encounter Description Reason Provider Source Nov 08, 2023 10:00 AM OFFICE O/P EST MOD 30 MIN OPTOMETRY ICD-10-CM H35.363 Drusen (degenerative) of macula, bilateral CHERRY GASTON Tiarra Encounter Template Text not used by [place] Assessments - Encounter Diagnoses This section includes the primary and secondary diagnoses documented for the Encounter. Date/Time Primary/Secondary Diagnosis Diagnosis Name Provider Source Nov 08, 2023 04:00 PM PRIMARY Drusen (degenerative) of macula, bilateral [facility] Nov 08, 2023 04:00 PM SECONDARY Combined forms of age-related cataract, bilateral [facility] Nov 08, 2023 04:00 PM SECONDARY [facility] Plan of Treatment: Future Appointments (+ 6 months) and Future Tests (+/- 45 days) The Plan of Treatment section includes future care activities for the patient from all [place] treatmentfacilities. This section includes future appointments and future orders which are active, pending or scheduled. Future Appointments This section includes appointments that were scheduled to occur 6 months from the date of the Encounter, up to a maximum of 20 appointments. The data comes from all [place] treatment facilities. Appointment Date/Time Appointment Type Appointme nt Facility Name Dec 02, 2023 02:30 PM AMBULATORY - MEDICINE [facility] Jan 23, 2024 10:30 AM AMBULATORY - MEDICINE [facility] Advance Directives: All historical and current Section Date Range: From patient's date of to the date document was created. This section includes ALL of a patient's completed or amended VA Advance and Rescinded Directives. The entries below indicate that a directive exists for the patient, but an actual copy is not included with this document. The data comes from all [place] facilities. Date Advance Directives Provider Source Jun 09, 2007 ADVANCE DIRECTIVE FABBY RITTER [facility] Encounter Notes: All associated encounter notes This section contains the clinical notes associated to the Encounter. Date/Time Encounter Note(s) Provider Source Nov 08, 2023 09:58 AM OPTOMETRY NOTE: LOCAL TITLE: OPTOMETRY NOTE STANDARD TITLE: OPTOMETRY NOTE DATE OF NOTE: NOV 08, 2023@09:58 ENTRY DATE: NOV 08, 2023@08:34:53 AUTHOR: MICHELLE SILVERMAN EXP COSIGNER: CARYN GASTON URGENCY: STATUS: COMPLETED OPTOMETRY NOTE Has ADDENDA ROLANDO: 11/05/2022 REASON FOR VISIT: CEE CC: 1. dist vision blur - adequate near vision through current spec rx per pt - feels that distance is getting harder to see - (-)flashes/floaters/curtai n over vision - no other visual complaints today Ocular meds: none Ocular ROS: 1. Cataracts OU 2. Dominant drusen OU 3. Presbyopia FOHx: (-) blindness (-) glaucoma (-) AMD (-) RD Cardiovascular ROS: no change from problem & medication lists CPRS Problem list, medications and allergies reviewed: CPRS Serology for Diabetes GLUCOSE 117 H mg/dL 09/26/2023 14:30 HGA1C 5.6 % 09/26/2023 14:30 Cardiovascular BP: 117/71 (09/26/2023 14:49) Pulse: 105 (09/26/2023 14:49) Neuro: Orientation: Normal Psych: Mood/Affect: Normal Depression/suicide ideation: NO - VISUAL ACUITY - DVA WITH correction OD: 20/30- PH 20/20 OS: 20/20-2 Pupils: PERRL OU (-)APD Confrontation: FTFC OU Extra-Ocular Muscles: Full OU Externals/adnexa: mild dermatochalasis OU LMRx: 11/05/2022 OD: -0.50 -1.75 x095 20/20 OS: -1.50 -1.25 x100 20/20 ADD: +2.50 Refraction: 11/08/2023 OD: -1.00-1.09f437 20/20 OS: -1.25-1.47b997 20/20 Add: +2.75 - SLIT LAMP EXAMINATION - Lids/Lashes/Lacrimal: (-) blepharitis OU Conjunctiva/Sclera: white/quiet OU Cornea: OD: clear OS: (+)PEE cluster slightly inf to vis axis Ant Chamber: deep and quiet OU Iris: normal, (-)NVI OU Lens: OD: 1-2+ NS OS: tr ACC, 1-2+ NS, tr PSC inf to vis axis Intraocular Pressures (Goldmann): 1 gtt Altafluor Date OD OS Time Meds 11/08/2023 16 17 1010 none - RETINAL EVALUATION - DFE Dilated retinal exam: 1011 Instilled 1 gtt phenylephrine 2.5%, 1 gtt tropicamide 1% OU Pt understands the side effects associated with dilation Vitreous: (-)PVD OU Optic Nerve OD: 0.25 CDR Flat, pink, distinct (-)NVD OS: 0.35 CDR Flat, pink, distinct (-)NVD Vessels: 2/3 OU, (-)NVE OU Posterior Pole: OD: (-) hemes/exudates/CWS/NVE OS: (-) hemes/exudates/CWS/NVE Macula: OD: Flat, clear (-)CSME OS: Flat, clear (-)CSME Periphery: OD: Flat and attached, scattered drusen willis OS: Flat and attached, scattered drusen willis Assessment/Plan 11/08/2023 1. Dominant drusen OU - stable findings on clinical exam today - stable BCVA OU - Monitor annually with DFE. Consider photos at next dilated visit 2. Cataracts OS>OD - not visually significant - BCVA cc 20/20 OD/OS/OU - no CE indicated at this time. - Pt ed on use of UV protection when outdoors to slow progression of cataract development. Monitor for visual changes. 3. Presbyopia - subjective improvement in vision with updated rx - Order new specs. - Pt made aware of possible 1-2 wks adapatation period. Recommended building up wear time (+2hrs/day). Pt edu on all findings and given the opportunity to have questions answered RTC 12 mos for CEE or sooner TANISHA /poonam/ MICHELLE SILVERMAN Optometry Resident Signed: 11/08/2023 16:01 /poonam/ CARYN GASTON OD 4TH GRADE MATH TEACHER Cosigned: 11/08/2023 16:06 11/08/2023 ADDENDUM STATUS: COMPLETED I have reviewed the history, findings and agree with the assessment and plan as charted in CPRS on this established patient. /fannie GASTON OD 4TH GRADE MATH TEACHER Signed: 11/08/2023 16:07 MICHELLE SILVERMAN [facility]
== END 2024-06-19 14:29 | disposition home or self-care (01) ==
LOC: ANHLAB 14:30
PROVIDERS: PCP Physician Assistant; Visit Provider Otolaryngology
DX: D49.0 Neoplasm of unspecified behavior of digestive system (principal)
CPT/HCPCS: 88305

== ENCOUNTER 2024-06-26 06:33 | Outpatient (CLI) | payer MEDICARE, SELFPAY ==
--- OUTSIDE RECORDS SUMMARY | 2024-06-26 06:36 | XMS_ITS | Continuity of Care Document ---
Author Organization Formerly [facility]. If a dditional information is needed, contact Health Information Management at [phone] Address [address] [place] [address] Phone Care Team Providers Care Compensation Programs Manager Name Role Phone Unavailable Unavailable Unavailable Unavailable Unavailable Unavailable Unavailable Unavailable Unavailable Unavailable Unavailable Unavailable Unavailable Problems Chronic obstructive pulmonar y disease, unspecified Onset:02-May-2023 Chronic obstructive pulmonar y disease Onset:02-Mar-2020 MAKEDA Carter III, MD Acute exacerbation of chroni c obstructive pulmonary disease Onset:02-Mar-2020 MAKEDA Carter III, MD Other chronic obstructive pu lmonary disease Elevated blood-pressure read ing, without diagnosis of hypertension Allergies and Adverse Reactions No Known Allergies(Allergy) Onset: 29-Nov-2012 No Known Allergies(Allergy) Medications fluticasone propionate 0.05 MG/ACTUAT Metered Dose Nasal Danevang;50 mcg/actuation NASAL 1d Quantity:16 Start:08-May-2024 Comments:fluticasone propionate [...] budesonide;budesonide Quantity:60 Start:09-Aug-2022 Comments:budesonide Trelegy Ellipta;Trelegy Catina captain of guards Quantity:60 Start:30-Jul-2022 Comments:Trelegy Ellipta roflumilast;roflumilast Quantity:30 Start:30-Jul-2022 Comments:roflumilast losartan potassium;losartan potassium Quantity:90 Start:23-Apr-2022 Comments:losartan potassium Albuterol 0.83 MG/ML / Ipratropium Miles 0.17 MG/ML Inhalant Solution;3 MILLILITER INHALATION Q10M PRN Quantity:1 MAKEDA Carter III, MD Start:02-Mar-2020 Status:Discontinued Comments:[id number] Administration Instructions:Duoneb 3 ml may repeat times X 3 hydroCHLOROthiazide 12.5 MG / losartan potassium 50 MG Oral Tablet [Hyzaar];1 TABLET ORAL DAILY Start:29-Nov-2012 Comments:1 TAB PO DAILY Procedures Dexamethasone sodium phos Date:09-May-19 Status:Completed Therapeutic, prophylactic, o r diagnostic injection (specify substance or drug); subcutaneous or intramuscular Date:08-May-2024 Status:Completed Social History Smoking Status Ex-smoker Recorded: 02-Mar-2020 Ex-smoker Vital Signs 08-May-2024 10:13 BP Zfjsfahb032qj[Hg] BP Cvedjxbjm98fe[Hg] Pulse93{beats}/min Grwtjnwxfew97.5f O2 SAT94% BMI24.3kg/m2 Xzotqa21jk Rcqjiy816ds 08-May-2024 10:13 BP Kcgfdliu949ce[Hg] BP Bwzkzgndp17sr[Hg] Pulse93{beats}/min Tkqftothyer38.5f O2 SAT94% BMI24.3kg/m2 Qdqlnr37fe Akicss421hk Encounters Ambulatory Encounter Diagnosis:Rhinitis,Acute exacerbation of chronic obstructive pulmonary disease 08-May-2024 KATHI JORGE (Attending) [facility] 02-May-2023 HILDA RUTLEDGE (Attending) [facility] CARE PLAN Goal Instructions Future Appointment Date Kathi Stella Address: [address] [place] [phone] TESTS Test Name Status Date
--- OUTSIDE RECORDS SUMMARY | 2024-06-26 06:36 | XMS_ITS ---
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 Discuss Losartan with Manager Career before considering holding. Moisturizer recommended. He is following with Dermatology at [facility] and planning to be evaluated by their [...] and Hydroxyzine as needed. Discuss Losartan with Manager Career before considering holding. Moisturizer recommended. He is following with Dermatology at [facility] and planning to be evaluated by their new itch specialist. Chronic rhinitis Given the history an d symptoms, ImmunoCAPs were performed to common aeroallergens to determine atopic status. ImmunoCAPs were negative. Next Appt Details Follow Up: 4 Months, Reason: Progress Notes * Lawrence KWONDOB:[birth year] (73 yo M)Acc No.[id number]:01/25/2024 Progress Notes Patient: Lawrence MCCAIN Provider: Raul Leiva MD :1950 A ge:73 Y S ex:Male Date:01/25/2024 Address:[address] [place], [place] [id number] Pcp:Vita Schneider Subjective: * Chief Complaints: * [...] times with improvement. He was evaluated at [facility]. He is following with Dr. [...] n one. c ataracts N o. g laucoma No. l oss of hearing N o. i tching in ears N o. r inging in ears N o. loss of balance N o. l oss of smell N o. d ry eyes N o. e xcessive tearing No. i tching eyes N o. l oss of taste N o. c onjunctivitis N o. e ar infections N o. C ONSTITUTIONAL: weight gain N o. l oss of appetite N o. f ever No. w eakness N o. w eight loss N o. f atigue N o. n ight sweats No. P ositive for n one. E NT: cold N o. c ough N o. e pistaxis N o. h earing loss N o. c hange in voice N o. s ore throat N o. r inging in ears No. s inus pain N o. P ositive p er the HPI and history, otherwise unremarkable. R ESPIRATORY: shortness of breath Y es. [...] o. p alpitations N o. l eg edema No. d izziness N o. s hortness of breath N o. P ositive for n one. G ASTROENTEROLOGY: dysphagia N o. a bdominal pain N o. n ausea No. v omiting N o. c onstipation N o. d iarrhea N o. b lood in stool No. i ndigestion N o. h emorrhoids N o. P ositive for n one. U ROLOGY: difficulty urinating N o. b [...] o. t ingling numbness N o. s eizures No. i nsomnia N o. m gertrudis loss [...] with erection N o. d iminished sexual drive No. p enile discharge N o. i nfertility [...] drinks per occasion: 3 Frequency? W gabrielle S constanceking Have you ever smoked tobacco: f traci smoker Additional Findings: Tobacco User L ight [...] Age of carpet? 5 Do you have brrq-oh-wwiu carpeting? Y es What is the age [...] Procedure Codes: 9 6160 PT-FOCUSED HLTH RISK [id number] DOC MEDS VERIFIED W/PT OR [id number] BMI<30 AND >=22 CALC & [id number] BP SCR PRFRM RCMDD DEFIND SCR INTVL [...] Months * Billing Information: * Visit Code: 16888 Office Visit, Est Pt., Level 3. Modifiers: 25 * Procedure Codes: 46587 PT-FOCUSED HLTH RISK ASSMT. G8427 DOC MEDS VERIFIED W/PT OR RE. G8420 BMI<30 AND >=22 CALC & DOCU. G8783 BP SCR PRFRM RCMDD DEFIND SCR INTVL. * RITIES SUPERVISOR Sign off status: Completed true * Provider: Raul Leiva MD Date: 1 03/27/2023 Generated for Abel boothe/Mark/Song on: 0 06/26/2024 06:36 AM CDT History and Physical Notes * HPI (History of Present Illness) Category Sub-Category Detail Notes Category Not es *Introduction HPI: Lawrence Kwon, a 73 year old with [...] times with improvement. He was evaluated at [facility]. He is following with Dr. [...]
--- OUTSIDE RECORDS SUMMARY | 2024-06-26 06:37 | XMS_ITS | Clinical Summary ---
Author Organization [facility] Address [address] [place] [address] Care Team Providers Care Stockroom Selector Name Role Phone Unavailable Primary Care Provider Unavailabl e Source Comments [facility],non-owned Affiliates and Associated Physician Practices is amultiple site organization consisting of ambulatory clinics and hospital sitesin [place], [place], [place] and [place]. This disclosure is being madepursuant to the Care Everywhere program and may not contain all information available regarding this patient. Last updated 17.[facility] [employer] Travel Guide Allergies Active Allergy Reactions Criticality Noted Date Comments Sulfa Drugs 10/26/2016 Medications * Be aware that medications may not be up to date on this document. Alwaysverify current medications with the patient. 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
--- OUTSIDE RECORDS SUMMARY | 2024-06-26 06:37 | XMS_ITS | Continuity of Care Document ---
Author Name [facility] Organization [facility] Care Team Providers Care Extractor Puller Name Role Phone [facility] Unavailable Unavailable Problems Combined list of problems from Department of [facility] and [facility] facilities. It does not include entries that were removed or entered in error. Problem Status Onset Date Problem Type Date of Resolution Comments Source Benign essential hypertension (SNOMED CT 2032384) Active Condition [facility] Chronic obstructive pulmonary disease Active Condition [facility] Elevated PSA (SNOMED CT 941403903) Active Condition [facility] Family history of cancer of colon (SNOMED CT 789726617) Active Condition [facility] HYPERTENSION NOS Active Condition [facility] Polyp of colon Active Condition Dec 162018 Entered By: LISA GUARDADO Comment: Last colonoscopy January 2016, repeat January 2021 [facility] Tobacco use Active Condition Jan 05, 2019 Entered By: LISA GUARDADO Comment: total pack year hx >30, quit smoking 2014 [facility] Diagnosis: ICD-10-CM I10 Essential (primary) hypertension Active Diagnosis [facility] Diagnosis: ICD-10-CM L57.0 Actinic keratosis Active Diagnosis [facility] Diagnosis: ICD-10-CM Z23 Encounter for immunization Active Diagnosis [facility] Diagnosis: ICD-10-CM 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 Medication Details Route Status Patient Instructions Prescription Expires Prescription Number Last Dispense Date Ordering Provider Order Date Order Qty Source ALBUTEROL SO4 3MG/IPRATRO PIUM BR 0.5MG/3ML INHL,3ML INHALE 1 VIAL (3ML) BY NEBULIZA TION FOUR TIMES A DAY DIRECTED FOR COPD NEBULI ZATION SUSPEND ED 06/26/2025 [id number] SCHUM,MAR Y 2024 360 [facility] ALBUTEROL SO4 3MG/IPRATRO PIUM BR 0.5MG/3ML INHL,3ML INHALE 1 VIAL (3ML) BY NEBULIZA TION FOUR TIMES A DAY DIRECTED FOR COPD NEBULI ZATION DISCONT INUED 08/01/2024 [id number] PAOLAISAACCAMILLE LINDA CAJAL 2023 360 [facility] ALBUTEROL SO4 90MCG/ACTUA T (CFC-F) INHL,ORAL,8 .5GM INHALE 2 PUFFS BY ORAL INHALATI ON FOUR TIMES A DAY NEEDED FOR COPD SHAKE WELL. RINSE MOUTHPIE CE FREQUENT LY TO PREVENT CLOGGING . RESPIR ATORY (INHAL ATION) ACTIVE 02/24/2025 [id number] CAMILLE VENTURA LINDA CAJAL 2024 3 [facility] N ATORVASTATI N CA 40MG TAB TAKE ONE-HALF TABLET BY MOUTH EVERY EVENING FOR HIGH CHOLESTE ROL ORAL ACTIVE 06/26/2025 [id number] [facility] 2024 45 [facility] ATORVASTATI N CA 40MG TAB TAKE ONE-HALF TABLET BY MOUTH EVERY EVENING FOR CHOLESTE ROL. REPORT ANY UNEXPLAI BRITANY MUSCLE PAIN/WEA KNESS TO PROVIDER . ORAL 02/16/2024 [id number] SCHUM,MAR Y 2023 45 [facility] BUDESONIDE 160/GLYCOPY R 9/FORMOTER 4.8MCG/ACT INHL,ORAL,1 0.7GM INHALE 2 PUFFS INHALATI ON TWICE A DAY DIRECTED FOR COPD (CLEAN INHALER FOLLOWED BY 2 PRIMING PUFFS ONCE WEEKLY) INHALA TION 04/01/2024 [id number] CAMILLE VENTURAL 2023 1 [facility] DIVISSHARON N BUDESONIDE 1MG/2ML SUSP,INH,2M L 1 UNIT (2ML) NEBULIZA TION ONCE A DAY NEBULI ZATION ACTIVE SCHUM,Apr [facility] CALCIUM POLYCARBOPH [place] 625MG TAB TAKE ONE TABLET BY MOUTH ONCE A DAY ORAL ACTIVE SCHUM,Apr [facility] CHOLECALCIF WOOD 50MCG (2,000UNIT) TAB TAKE ONE TABLET BY MOUTH ONCE A DAY ORAL ACTIVE SCHUM,Apr [facility] FLUTICASONE 100/UMECLID INIUM 62.5/VILANT WOOD 25MCG/ACTUA T INH,30 INHALE 1 PUFF BY ORAL INHALATI ON ONCE A DAY RESPIR ATORY (INHAL ATION) ACTIVE SCHUM,Apr [facility] LOSARTAN POTASSIUM 100MG TAB TAKE ONE-HALF TABLET BY MOUTH ONCE A DAY ORAL ACTIVE SCHUM,Apr [facility] METOPROLOL TARTRATE 50MG TAB TAKE ONE-HALF TABLET BY MOUTH TWICE A DAY ORAL ACTIVE SCHUM,Apr [facility] ROFLUMILAST 500MCG TAB TAKE ONE TABLET BY MOUTH ONCE A DAY ORAL ACTIVE SCHUM,Apr [facility] Allergies, Adverse Reactions, Alerts Combined list of allergies from Department of Defense and [facility] Affairs facilities. It does not include entries that were removed or entered in error. Substance Category Reaction Severity Reaction type Status Date Reported Comments Source LISINOPRIL Propensity to adverse reactions to drug (finding) Cough active 04/13/2020 Radhika ZHAO [facility] Immunizations Combined list of available immunizations from the Department of Defense and Veterans Affairs facilities. Immunization Series Date Given Administered By Site Reaction Lot Number CVX Code Drug Customer Account Manager Status Comments Source INFLUENZA, HIGH-DOSE, TRIVALENT, PF 2023 RENATO CHAVARRIA LEFT DELTO ID [id number] 135 complet ed Completed Series, ADMINISTE RED AT [facility] N INFLUENZA, UNSPECIFIED FORMULATION 2022 88 complet ed HISTORICA L INFORMATI ON - SOURCE UNSPECIFI ED, [facility] INFLUENZA, UNSPECIFIED FORMULATION 2021 88 complet ed HISTORICA L INFORMATI ON - FROM PATIENT'S RECALL, [facility] N TDAP 2021 115 complet ed [facility] COVID-19 (MODERNA), MRNA, LNP-S, PF, 100 MCG OR 50 MCG DOSE 3 2020 207 complet ed [facility] INFLUENZA, UNSPECIFIED FORMULATION 2020 88 complet ed [facility] ZOSTER RECOMBINANT 2 2020 187 complet ed [facility] COVID-19 (MODERNA), MRNA, LNP-S, PF, 100 MCG/0.5 ML DOSE 2 2020 207 complet ed [facility] N COVID-19 (MODERNA), MRNA, LNP-S, PF, 100 MCG/0.5 ML DOSE 1 2020 207 complet ed [facility] N ZOSTER RECOMBINANT 1 2019 187 complet ed [facility] INFLUENZA, UNSPECIFIED FORMULATION 2019 88 complet ed [facility] PNEUMOCOCCAL POLYSACCHARID E PPV23 3 2018 33 complet ed HISTORICA L INFORMATI ON - FROM OTHER REGISTRY, [facility] N INFLUENZA, HIGH DOSE SEASONAL 2 2017 135 complet ed HISTORICA L INFORMATI ON - FROM OTHER REGISTRY, [facility] N INFLUENZA, UNSPECIFIED FORMULATION 2017 88 complet ed [facility] INFLUENZA, UNSPECIFIED FORMULATION 2016 88 complet ed [facility] N INFLUENZA, HIGH DOSE SEASONAL 1 2016 135 complet ed HISTORICA L INFORMATI ON - FROM OTHER REGISTRY, [facility] N INFLUENZA, SEASONAL, INJECTABLE, PRESERVATIVE FREE 2015 140 complet ed [facility] N INFLUENZA, SEASONAL, INJECTABLE, PRESERVATIVE FREE 2014 140 complet ed [facility] N PNEUMOCOCCAL CONJUGATE PCV 13 2014 133 complet ed [facility] N INFLUENZA, SEASONAL, INJECTABLE, PRESERVATIVE FREE 2013 140 complet ed [facility] N PNEUMOCOCCAL POLYSACCHARID E PPV23 2013 33 complet ed [facility] N INFLUENZA, UNSPECIFIED FORMULATION 2012 88 complet ed [facility] N INFLUENZA, UNSPECIFIED FORMULATION 2011 88 complet ed [facility] N TDAP 2011 115 complet ed Right Deltoid [facility] ZOSTER LIVE 2011 121 complet ed [facility] N INFLUENZA, UNSPECIFIED FORMULATION 2010 88 complet ed [facility] N INFLUENZA, UNSPECIFIED FORMULATION 2009 88 complet ed [facility] INFLUENZA, UNSPECIFIED FORMULATION 2007 88 complet ed [facility] Results Combined list of recent chemistry, hematology and other laboratory results from Department of Defense and Veterans Affairs, ranging from 15 months to all on record, depending upon the facility. Order Name Results Value Reference Range Date Interpretation Specimen Comments Source LIPID PANEL (STL) CHOLESTERO L [MASS/VOLU ME] IN SERUM OR PLASMA 135 mg/dL 0 - 200 06/25 Specimen Type: PLASMA Comment: No hemolysis noted. Ordering Provider: LISA GUARDADO Report Released Date/Time: June 25, 2024 10:11 AM Reporting Lab: [facility] [address] [facility] [address] Performing Lab: [facility] [address] [facility] [address] [facility] LIPID PANEL (STL) TRIGLYCERI DE [MASS/VOLU ME] IN SERUM OR PLASMA 79 mg/dL 0 - 150 06/25 Specimen Type: PLASMA Comment: No hemolysis noted. Ordering Provider: LISA GUARDADO Report Released Date/Time: June 25, 2024 10:11 AM Reporting Lab: [facility] [address] [facility] [address] Performing Lab: [facility] [address] [facility] [address] [facility] LIPID PANEL (STL) CHOLESTERO L IN LDL [MASS/VOLU ME] IN SERUM OR PLASMA BY [place] N 66 mg/dL 06/25 Specimen Type: PLASMA Comment: No hemolysis noted. Ordering Provider: LISA GUARDADO Report Released Date/Time: June 25, 2024 10:11 AM Reporting Lab: [facility] [address] [facility] [address] Performing Lab: [facility] [address] [facility] [address] [facility] LIPID PANEL (STL) CHOLESTERO L IN HDL [MASS/VOLU ME] IN SERUM OR PLASMA 53 mg/dL 40 06/25 Specimen Type: PLASMA Comment: No hemolysis noted. Ordering Provider: LISA GUARDADO Report Released Date/Time: June 25, 2024 10:11 AM Reporting Lab: [facility] [address] [facility] [address] Performing Lab: [facility] [address] [facility] [address] [facility] HEPATIC FUNTION PANEL (STL) PROTEIN [MASS/VOLU ME] IN SERUM OR PLASMA 6.7 g/dL 6 - 8.6 06/25 Specimen Type: PLASMA Comment: No hemolysis noted. Ordering Provider: LISA GUARDADO Report Released Date/Time: June 25, 2024 10:11 AM Reporting Lab: [facility] [address] [facility] [address] Performing Lab: [facility] [address] [facility] [address] [facility] HEPATIC FUNTION PANEL (STL) ALBUMIN [MASS/VOLU ME] IN SERUM OR PLASMA 4.2 g/dL 3.4 - 5 06/25 Specimen Type: PLASMA Comment: No hemolysis noted. Ordering Provider: LISA GUARDADO Report Released Date/Time: June 25, 2024 10:11 AM Reporting Lab: [facility] [address] [facility] [address] Performing Lab: [facility] [address] [facility] [address] [facility] HEPATIC FUNTION PANEL (STL) BILIRUBIN. TOTAL [MASS/VOLU ME] IN SERUM OR PLASMA 0.9 mg/dL 0.2 - 1.2 06/25 Specimen Type: PLASMA Comment: No hemolysis noted. Ordering Provider: LISA GUARDADO Report Released Date/Time: June 25, 2024 10:11 AM Reporting Lab: [place] [address] [facility] [address] Performing Lab: [address] [phone] [place] [address] HEPATIC FUNTION PANEL (STL) ALKALINE PHOSPHATAS E [ENZYMATIC ACTIVITY/V OLUME] IN SERUM OR PLASMA 89 U/L 40 - 150 06/25 Specimen Type: PLASMA Comment: No hemolysis noted. Ordering Provider: LISA GUARDADO Report Released Date/Time: June 25, 2024 10:11 AM Reporting Lab: [facility] [address] Performing Lab: [place] [address] [facility] [address] [facility] HEPATIC FUNTION PANEL (STL) ASPARTATE AMINOTRANS FERASE [ENZYMATIC ACTIVITY/V OLUME] IN SERUM OR PLASMA 27 U/L 5 - 34 06/25 Specimen Type: PLASMA Comment: No hemolysis noted. Ordering Provider: LISA GUARDADO Report Released Date/Time: June 25, 2024 10:11 AM Reporting Lab: [facility] [address] Performing Lab: [address] [address] [facility] HEPATIC FUNTION PANEL (STL) ALANINE AMINOTRANS FERASE [ENZYMATIC ACTIVITY/V OLUME] IN SERUM OR PLASMA 16 U/L 8 - 40 06/25 Specimen Type: PLASMA Comment: No hemolysis noted. Ordering Provider: LISA GUARDADO Report Released Date/Time: June 25, 2024 10:11 AM Reporting Lab: [facility] [address] [place] [phone] Performing Lab: [facility] [address] [place] [phone] [facility] HEPATIC FUNTION PANEL (STL) BILIRUBIN. CONJUGATED [MASS/VOLU ME] IN SERUM OR PLASMA 0.3 mg/dL 0 - 0.5 06/25 Specimen Type: PLASMA Comment: No hemolysis noted. Ordering Provider: LISA GUARDADO Report Released Date/Time: June 25, 2024 10:11 AM Reporting Lab: [facility] [address] [place] [phone] Performing Lab: [address] [address] [facility] BASIC METABOLI C PANEL CREATININE [MASS/VOLU ME] IN SERUM OR PLASMA 0.80 mg/dL 0.7 - 1.3 06/25 Specimen Type: PLASMA Comment: No hemolysis noted. Ordering Provider: LISA GUARDADO Report Released Date/Time: June 25, 2024 10:11 AM Reporting Lab: [place] [address] [facility] [address] Performing Lab: [facility] [address] [place] [phone] [facility] BASIC METABOLI C PANEL UREA NITROGEN [MASS/VOLU ME] IN SERUM OR PLASMA 12.8 mg/dL 9.0 - 25.0 06/25 Specimen Type: PLASMA Comment: No hemolysis noted. Ordering Provider: LISA GUARDADO Report Released Date/Time: June 25, 2024 10:11 AM Reporting Lab: [facility] [address] [place] [phone] Performing Lab: [facility] [address] [place] [phone] [facility] BASIC METABOLI C PANEL GLUCOSE [MASS/VOLU ME] IN SERUM OR PLASMA 95 mg/dL 72 - 99 06/25 Specimen Type: PLASMA Comment: No hemolysis noted. Ordering Provider: LISA GUARDADO Report Released Date/Time: June 25, 2024 10:11 AM Reporting Lab: [facility] [address] [facility] [address] Performing Lab: [facility] [address] [place] [phone] [facility] BASIC METABOLI C PANEL SODIUM [MOLES/VOL UME] IN SERUM OR PLASMA 139 meq/L 136 - 145 06/25 Specimen Type: PLASMA Comment: No hemolysis noted. Ordering Provider: LISA GUARDADO Report Released Date/Time: June 25, 2024 10:11 AM Reporting Lab: [address] [address] Performing Lab: [address] [address] [facility] BASIC METABOLI C PANEL POTASSIUM [MOLES/VOL UME] IN SERUM OR PLASMA 4.6 meq/L 3.5 - 5 06/25 Specimen Type: PLASMA Comment: No hemolysis noted. Ordering Provider: LISA GUARDADO Report Released Date/Time: June 25, 2024 10:11 AM Reporting Lab: [address] [address] Performing Lab: [facility] [address] [place] [phone] [facility] [address] [facility] BASIC METABOLI C PANEL CHLORIDE [MOLES/VOL UME] IN SERUM OR PLASMA 108 meq/L 98 - 107 06/25 H Specimen Type: PLASMA Comment: No hemolysis noted. Ordering Provider: LISA GUARDADO Report Released Date/Time: June 25, 2024 10:11 AM Reporting Lab: [facility] [address] [facility] [address] Performing Lab: [address] [address] [facility] BASIC METABOLI C PANEL CARBON DIOXIDE, TOTAL [MOLES/VOL UME] IN SERUM OR PLASMA 26 meq/L 22 - 31 06/25 Specimen Type: PLASMA Comment: No hemolysis noted. Ordering Provider: LISA GUARDADO Report Released Date/Time: June 25, 2024 10:11 AM Reporting Lab: [facility] [address] [facility] [address] Performing Lab: [facility] [address] [facility] [address] [facility] BASIC METABOLI C PANEL CALCIUM [MASS/VOLU ME] IN SERUM OR PLASMA 9.4 mg/dL 8.4 - 10.4 06/25 Specimen Type: PLASMA Comment: No hemolysis noted. Ordering Provider: LISA GUARDADO Report Released Date/Time: June 25, 2024 10:11 AM Reporting Lab: [place] [address] [facility] [address] Performing Lab: [facility] [address] [facility] [address] [facility] BASIC METABOLI C PANEL GLOMERULAR FILTRATION RATE/1.73 SQ M.PREDICTE D [VOLUME RATE/AREA] IN SERUM, PLASMA OR BLOOD BY CREATININE -BASED FORMULA (CKD-EPI 2020) 93.5 60 06/25 Specimen Type: PLASMA Comment: No hemolysis noted. Ordering Provider: LISA GUARDADO Report Released Date/Time: June 25, 2024 10:11 AM Reporting Lab: [facility] [address] [facility] [address] Performing Lab: [facility] [address] [facility] [address] [facility] HGA1C HEMOGLOBIN A1C/HEMOGL OBIN.TOTAL IN BLOOD 5.7 4.0 - 6.0 06/25 Specimen Type: BLOOD No comment entered. Ordering Provider: LISA GUARDADO Report Released Date/Time: June 25, 2024 10:11 AM Reporting Lab: [facility] [address] [facility] [address] Performing Lab: [facility] [address] [place] [phone] [place] [address] PROST. SPECIFIC AG.(PB-S TL) PROSTATE SPECIFIC AG [MASS/VOLU ME] IN SERUM OR PLASMA 9.696 ng/mL 0 - 4 06/25 HH Specimen Type: SERUM Comment: The listed sex of this patient may not be a typical indication for this test. Therefore, reference ranges or interpretiv e criteria listed may not be valid. Clinical correlation suggested. Ordering Provider: LISA GUARDADO Report Released Date/Time: June 25, 2024 10:11 AM Reporting Lab: [address] [address] Performing Lab: [address] [phone] CBC LEUKOCYTES [#/VOLUME] IN BLOOD BY AUTOMATED COUNT 6.1 10*3/uL 3.6 - 11.2 06/25 Specimen Type: BLOOD No comment entered. Ordering Provider: LISA GUARDADO Report Released Date/Time: June 25, 2024 10:11 AM Reporting Lab: [facility] [address] [place] [phone] Performing Lab: [address] [phone] [place] [address] CBC ERYTHROCYT ES [#/VOLUME] IN BLOOD BY AUTOMATED COUNT 3.86 10*6/uL 4.10 - 5.70 06/25 L Specimen Type: BLOOD No comment entered. Ordering Provider: LISA GUARDADO Report Released Date/Time: June 25, 2024 10:11 AM Reporting Lab: [facility] [address] [place] [phone] Performing Lab: [address] [address] [place] [address] CBC HEMOGLOBIN [MASS/VOLU ME] IN BLOOD 11.8 g/dL 13.1 - 16.8 06/25 L Specimen Type: BLOOD No comment entered. Ordering Provider: LISA GUARDADO Report Released Date/Time: June 25, 2024 10:11 AM Reporting Lab: [facility] [address] [place] [phone] Performing Lab: [facility] [address] [place] [phone] [facility] CBC HEMATOCRIT [VOLUME FRACTION] OF BLOOD 36.1 38.2 - 48.4 06/25 L Specimen Type: BLOOD No comment entered. Ordering Provider: LISA GUARDADO Report Released Date/Time: June 25, 2024 10:11 AM Reporting Lab: [facility] [address] Performing Lab: [address] [phone] [place] [address] CBC MCV [ENTITIC VOLUME] BY AUTOMATED COUNT 93.5 fL 80.0 - 100.0 06/25 Specimen Type: BLOOD No comment entered. Ordering Provider: LISA GUARDADO Report Released Date/Time: June 25, 2024 10:11 AM Reporting Lab: [facility] [address] Performing Lab: [address] [phone] [place] [address] CBC MCH [ENTITIC MASS] BY AUTOMATED COUNT 30.6 pg 27.0 - 34.0 06/25 Specimen Type: BLOOD No comment entered. Ordering Provider: LISA GUARDADO Report Released Date/Time: June 25, 2024 10:11 AM Reporting Lab: [facility] [address] Performing Lab: [address] [phone] [place] [address] CBC MCHC [MASS/VOLU ME] BY AUTOMATED COUNT 32.7 g/dL 33.0 - 36.0 06/25 L Specimen Type: BLOOD No comment entered. Ordering Provider: LISA GUARDADO Report Released Date/Time: June 25, 2024 10:11 AM Reporting Lab: [facility] [address] [facility] [address] Performing Lab: [facility] [address] [facility] [address] [facility] CBC PLATELETS [#/VOLUME] IN BLOOD BY AUTOMATED COUNT 374 10*3/uL 150 - 400 06/25 Specimen Type: BLOOD No comment entered. Ordering Provider: LISA GUARDADO Report Released Date/Time: June 25, 2024 10:11 AM Reporting Lab: [facility] [address] [facility] [address] Performing Lab: [facility] [address] [facility] [address] [facility] CBC PLATELET MEAN VOLUME [ENTITIC VOLUME] IN BLOOD BY AUTOMATED COUNT 11.2 fL 7.5 - 11.2 06/25 Specimen Type: BLOOD No comment entered. Ordering Provider: LISA GUARDADO Report Released Date/Time: June 25, 2024 10:11 AM Reporting Lab: [facility] [address] [facility] [address] Performing Lab: [facility] [address] [facility] [address] [facility] CBC ERYTHROCYT E DISTRIBUTI ON WIDTH [RATIO] BY AUTOMATED COUNT 14.6 11.8 - 15.1 06/25 Specimen Type: BLOOD No comment entered. Ordering Provider: LISA GUARDADO Report Released Date/Time: June 25, 2024 10:11 AM Reporting Lab: [facility] [address] [facility] [address] Performing Lab: [facility] [address] [facility] [address] [facility] CBC LYMPHOCYTE S/100 LEUKOCYTES IN BLOOD BY AUTOMATED COUNT 16 06/25 Specimen Type: BLOOD No comment entered. Ordering Provider: LISA GUARDADO Report Released Date/Time: June 25, 2024 10:11 AM Reporting Lab: [facility] [address] [facility] [address] Performing Lab: [facility] [address] [facility] [address] [facility] CBC MONOCYTES/ 100 LEUKOCYTES IN BLOOD BY AUTOMATED COUNT 9 06/25 Specimen Type: BLOOD No comment entered. Ordering Provider: LISA GUARDADO Report Released Date/Time: June 25, 2024 10:11 AM Reporting Lab: [facility] [address] [facility] [address] Performing Lab: [facility] [address] [facility] [address] [facility] CBC NEUTROPHIL S/100 LEUKOCYTES IN BLOOD BY AUTOMATED COUNT 69 06/25 Specimen Type: BLOOD No comment entered. Ordering Provider: LISA GUARDADO Report Released Date/Time: June 25, 2024 10:11 AM Reporting Lab: [facility] [address] [facility] [address] Performing Lab: [facility] [address] [facility] [address] [facility] CBC EOSINOPHIL S/100 LEUKOCYTES IN BLOOD BY AUTOMATED COUNT 5 06/25 Specimen Type: BLOOD No comment entered. Ordering Provider: LISA GUARDADO Report Released Date/Time: June 25, 2024 10:11 AM Reporting Lab: [facility] [address] [facility] [address] Performing Lab: [facility] [address] [facility] [address] [facility] CBC BASOPHILS/ 100 LEUKOCYTES IN BLOOD BY AUTOMATED COUNT 1 06/25 Specimen Type: BLOOD No comment entered. Ordering Provider: LISA GUARDADO Report Released Date/Time: June 25, 2024 10:11 AM Reporting Lab: [facility] [address] [facility] [address] Performing Lab: [facility] [address] [facility] [address] [facility] CBC LYMPHOCYTE S [#/VOLUME] IN BLOOD BY AUTOMATED COUNT 0.98 10*3/uL 0.77 - 4.50 06/25 Specimen Type: BLOOD No comment entered. Ordering Provider: LISA GUARDADO Report Released Date/Time: June 25, 2024 10:11 AM Reporting Lab: [facility] [address] [place] [address] Performing Lab: [address] [address] [facility] CBC MONOCYTES [#/VOLUME] IN BLOOD BY AUTOMATED COUNT 0.53 10*3/uL 0.19 - 0.80 06/25 Specimen Type: BLOOD No comment entered. Ordering Provider: LISA GUARDADO Report Released Date/Time: June 25, 2024 10:11 AM Reporting Lab: [address] [address] Performing Lab: [address] [place], [place] [address]TE [facility] CBC NEUTROPHIL S [#/VOLUME] IN BLOOD BY AUTOMATED COUNT 4.17 10*3/uL 2.10 - 8.00 06/25 Specimen Type: BLOOD No comment entered. Ordering Provider: LISA GUARDADO Report Released Date/Time: June 25, 2024 10:11 AM Reporting Lab: [facility] [address] [place] [address] Performing Lab: [facility] [address] [place] [address] [facility] CBC EOSINOPHIL S [#/VOLUME] IN BLOOD BY AUTOMATED COUNT 0.33 10*3/uL 0.00 - 0.60 06/25 Specimen Type: BLOOD No comment entered. Ordering Provider: LISA GUARDADO Report Released Date/Time: June 25, 2024 10:11 AM Reporting Lab: [facility] [address] [place] [address] Performing Lab: [address] [address] [facility] CBC BASOPHILS [#/VOLUME] IN BLOOD BY AUTOMATED COUNT 0.06 10*3/uL 0.00 - 0.20 06/25 Specimen Type: BLOOD No comment entered. Ordering Provider: LISA GUARDADO Report Released Date/Time: June 25, 2024 10:11 AM Reporting Lab: [facility] [address] [facility] [address] Performing Lab: [facility] [address] [facility] [address] [facility] URINALYS IS (STL-PB) COLOR OF URINE Yellow 06/25 Specimen Type: URINE No comment entered. Ordering Provider: LSIA GUARDADO Report Released Date/Time: June 25, 2024 10:11 AM Reporting Lab: [place] [address] [facility] [address] Performing Lab: [place] [address] [facility] [address] [facility] URINALYS IS (STL-PB) BILIRUBIN. TOTAL [PRESENCE] IN URINE BY TEST STRIP Negative mg/dL 06/25 Specimen Type: URINE No comment entered. Ordering Provider: LISA GUARDADO Report Released Date/Time: June 25, 2024 10:11 AM Reporting Lab: [facility] [address] Performing Lab: [place] [address] [facility] [address] [facility] URINALYS IS (STL-PB) PH OF URINE BY TEST STRIP 7.0 5.0 - 8.0 06/25 Specimen Type: URINE No comment entered. Ordering Provider: LISA GUARDADO Report Released Date/Time: June 25, 2024 10:11 AM Reporting Lab: [facility] [address] Performing Lab: [facility] [address] [facility] URINALYS IS (STL-PB) LEUKOCYTES [#/AREA] IN URINE SEDIMENT BY MICROSCOPY HIGH POWER FIELD <1/[HPF] 0 - 5 06/25 Specimen Type: URINE No comment entered. Ordering Provider: LISA GUARDADO Report Released Date/Time: June 25, 2024 10:11 AM Reporting Lab: [facility] [address] [facility] [address] Performing Lab: [facility] [address] [facility] [address] [facility] URINALYS IS (STL-PB) ERYTHROCYT ES [#/VOLUME] IN URINE SEDIMENT BY MICROSCOPY HIGH POWER FIELD 1 /[HPF] 0 - 5 06/25 Specimen Type: URINE No comment entered. Ordering Provider: LISA GUARDADO Report Released Date/Time: June 25, 2024 10:11 AM Reporting Lab: [facility] [address] [facility] [address] Performing Lab: [place] [address] [facility] [address] [place] [address] URINALYS IS (STL-PB) APPEARANCE OF URINE Clear 06/25 Specimen Type: URINE No comment entered. Ordering Provider: LISA GUARDADO Report Released Date/Time: June 25, 2024 10:11 AM Reporting Lab: [facility] [address] [facility] [address] Performing Lab: [facility] [address] [facility] [address] [facility] URINALYS IS (STL-PB) NITRITE [PRESENCE] IN URINE BY TEST STRIP Negative mg/dL 06/25 Specimen Type: URINE No comment entered. Ordering Provider: LISA GUARDADO Report Released Date/Time: June 25, 2024 10:11 AM Reporting Lab: [facility] [address] [facility] [address] Performing Lab: [facility] [phone] [place] [address] URINALYS IS (STL-PB) MUCUS [PRESENCE] IN URINE SEDIMENT BY LIGHT MICROSCOPY RARE/[LP F] 06/25 Specimen Type: URINE No comment entered. Ordering Provider: LISA GUARDADO Report Released Date/Time: June 25, 2024 10:11 AM Reporting Lab: [facility] [address] [facility] [address] Performing Lab: [place] [address] [facility] [address] [facility] URINALYS IS (STL-PB) GLUCOSE [MASS/VOLU ME] IN URINE BY TEST STRIP Normalmg /dL 06/25 Specimen Type: URINE No comment entered. Ordering Provider: LISA GUARDADO Report Released Date/Time: June 25, 2024 10:11 AM Reporting Lab: [place] [address] [address] [facility] [address] Performing Lab: [place] [address] [facility] [address] [place] [address] URINALYS IS (STL-PB) PROTEIN [MASS/VOLU ME] IN URINE BY TEST STRIP 20 mg/dL 06/25 H Specimen Type: URINE No comment entered. Ordering Provider: LISA GUARDADO Report Released Date/Time: June 25, 2024 10:11 AM Reporting Lab: [place] [address] [facility] [address] Performing Lab: [place] [address] [facility] [address] [place] [address] URINALYS IS (STL-PB) URN.UROBIL INOGEN Normalmg /dL 06/25 Specimen Type: URINE No comment entered. Ordering Provider: LISA GUARDADO Report Released Date/Time: June 25, 2024 10:11 AM Reporting Lab: [place] [address] [address] [facility] [address] Performing Lab: [facility] [id number]|2024-06-26 06:37:00|2024-06-26 06:37:00|XMS_ITS|BKG DAEMON|External Medical Summaries|[id number]|" Data Portability Created on: June 26, 2024 Lawrence Vicente .[id number] : 1950 Sex: Male Author Organization [facility] SICullen [facility] Address [address] [place] [address] Care Team Providers Care Extractor Puller Name Role Phone HOWARDHUSSEIN Rug Layer RACHANA JEONG Cupola Operator WAI BYRD Urologist [phone] Assessment No assessment recorded. Plan of Treatment Reminders Order Date Submit Date Provider Last Modified By Organization Details Last Modified Time Details Appointments None recorded. Lab None recorded. Referral None recorded. Procedures None recorded. Surgeries None recorded. Imaging None recorded. Medication Orders lidocaine 5 % topical patch 2023 024 ANDREIA [facility] #[id number], [address] [place], [address], 14:41:55 citalopram 10 mg tablet 2023 024 [email or web address] [facility] #[id number], [address] [place], [address], 13:46:58 Patient TargetsNo targets recorded. Patient Instructions Encounter Date Encounter Id Patient Instructions Last Modified By Organization Details Last Modified Time 12/22/2023 [id number] Medicare [facility] Preventive Checklist [email or web address] Not available 12/22/2023 14:41:50 Reason for Referral [employer] Director Referral fo r Tonsil asymmetry 5-6 weeks of left side sore throat. tonsilar asymmetry/enlarged/abnormal. failed abx/steroid Referring Physician: Vita Schneider, Internal Medicine, Encounter Date: 06/15/2024 Results Created Date Observation Date Name Description Value Unit Range Abnormal Flag Note LastModifiedBy Organization Detail LastModifiedTime 10/1611/30/2023 XR, chest , 2 view No observ ation record ed. [email or web address], [place], [address], 11/30/2023 14:23:54 Result Notes None recorded. Problems Name Problem SNOMED Code Status Onset Date Resolution Date Notes Provider Name and Address Organization Details Recorded Time Benign essential hypertension 2335575 Active 2023 MARNIE Hernandez Attn: Andrew de leon,[address] [facility], [place], [address], [place] [facility] 4 10:24:01 Hyperlipidemia 55529767 Active 2023 MARNIE Hernandez Attn: Andrew de leon,[address] [facility], [place], [address], [place] [facility] 4 10:24:02 Chronic obstructive pulmonary disease 23018160 Active 2023 MANRIE Hernandez Attn: Andrew del eon,[address] [place], [address], [place] [facility] 4 10:24:03 Multiple premature ventricular complexes 060328641 Active 2023 MARNIE Hernandez Attn: Andrew de leon,[address] [facility], [place], [address], [place] [facility] 4 10:24:21 Generalized pruritus 927567839 Active 2023 MARNIE Hernandez Attn: Andrew de leon,[address] [place], [address], [place] [facility] 4 09:02:18 Anxiety 16472388 Active 2023 MARNIE Hernandez Attn: Andrew g,[address] [place], [address], [place] [facility] 4 09:02:20 Long-term drug therapy Active 2023 MARNIE Hernandez Attn: Andrew de leon,[address] [place], [address], [place] [facility] 4 09:02:33 Prostate specific antigen above reference range 240757999 Active 2023 MARNIE Hernandez Attn: Andrew de leon,[address] [facility], [place], [address], [place] [facility] 4 09:17:00 Post-herpetic trigeminal neuralgia 71628868 Active 2023 MARNIE Hernandez Attn: Andrew de leon,[address], [place], [address], [place] [facility] 4 09:17:02 Body mass index 20-24 - normal 533658305 Active 2024 Hodan Posadas [place] null, [place] [facility] 5 16:20:13 Problem Notes None recorded. Procedures Surgical History Date Name Laterality Status Provider Name and Address Organization Details Recorded Time catheter ablation of tissue of heart completed Hodan Posadas [place] 06/15/2024 16:20:53 Hernia Repair completed Dilia Bang [place] [facility] 06/13/2023 09:55:21 Knee Surgery completed Dilia Bang [place] [facility] 06/13/2023 09:55:29 Prostate Biopsy completed Dilia Bang [place] [facility] 06/13/2023 09:55:35 Imaging Results Imaging Date Name Status LastModified by Organiz ation Details LastModified Time 11/30/2023 XR, chest, 2 view completed [address], [place], [address], 11/30/2023 14:23:54 Procedure Notes None recorded. Medical [...] Available Not Available cefdinir 300 mg capsule TAKE 1 CAPSULE BY MOUTH EVERY 12 HOURS active Not Available Not Available No t Available losartan 100 mg tablet TAKE 1 [...] Organization Details Last Updated DateTime 170.18 cm 24.2 kg/m2 58054.6 6 g 63 /min 96 % 96 % 120 mm[Hg] 76 mm[Hg] Dilia Bang MA [facility] 09:57:47 Date Recorded Systolic blood pressure Diastolic blood pressure Systolic blood pressure Diastolic blood pressure Provider Name and Address Organization Details Last Updated DateTime 06/13/2023 138 mm[Hg] 80 mm[Hg] 140 mm[Hg] 80 mm[Hg] MARNIE Hernandez Attn: Accounting ,[address] [place], [address] , [facility] 10:17:38 Date Recorded Body height Body mass index (BMI) Body weight Respiratory rate Oxygen saturation Oxygen saturation in Arterial blood by Pulse oximetry Heart rate Systolic blood pressure Diastolic blood pressure Provider Name and Address Organization Details Last Updated DateTime 4 170.18 cm 24.2 kg/m2 17436.9 4 g 18 /min 96 % 96 % 60 /min 150 mm[Hg] 82 mm[Hg] Hodan Posadas MA [facility] 14:07:14 Date Recorded Systolic blood pressure Diastolic blood pressure Provider Name and Address Organization Details Last Updated DateTime 11/15/2023 140 mm[Hg] 80 mm[Hg] MARNIE Hernandez Attn: Accounting, [place], [address], [facility] 11/15/2023 14:52:54 Date Recorded Body height Body mass index (BMI) Body weight Oxygen saturation Oxygen saturation in Arterial blood by Pulse oximetry Heart rate Systolic blood pressure Diastolic blood pressure Provider Name and Address Organization Details Last Updated DateTime 4 170.18 cm 23.5 kg/m2 09447.8 6 g 96 % 96 % 89 /min 140 mm[Hg] 82 mm[Hg] Hodan Posadas MA [facility] 13:53:42 Date Recorded Pain severity - 0-10 verbal numeric rating [Score] - Reported Provider Name and Address Organization Details Last Updated DateTime 12/22/2023 4 Love Bhat [facility] 12/22/2023 13:57:23 Date Recorded Respiratory rate Systolic blood pressure Diastolic blood pressure Provider Name and Address Organization Details Last Updated DateTime 12/22/2023 18 /min 134 mm[Hg] 82 mm[Hg] MARNIE Hernandez Attn: Accounting, [address] [facility], [place], [address], [facility] 12/22/2023 14:44:07 Date Recorded Body height Body mass index (BMI) Body weight Respiratory rate Oxygen saturation Oxygen saturation in Arterial blood by Pulse oximetry Heart rate Systolic blood pressure Diastolic blood pressure Provider Name and Address Organization Details Last Updated DateTime 170.18 cm 24.1 kg/m2 48334.2 2 g 18 /min 96 % 96 % 90 /min 130 mm[Hg] 82 mm[Hg] Hodan Posadas MA [facility] 5 16:22:47 Social History Question Answer Notes LastModified by Organizat ion Details LastModified Time Tobacco Smoking Status Former Smoker Hodan Posadas MA null, [facility] 06/10/2023 10:03:07 Do You Have An Advance Directive? Yes Information not available 06/10/2023 Are You Blind Or Do You Have [...] No Information not available 06/10/2023 Are You Deaf Or Do You Have Serious Difficulty Hearing? No Information not available 06/10/2023 What Type Of Diet Are You Following? REGULAR Information not available 06/10/2023 What Is The Highest Grade Or Level Of School You Have Completed Or The Highest Degree You Have Received? [id number] Information not available 12/22/2023 Are There Any Guns Present In Your Home? Yes Information not available 06/10/2023 In The Past 7 Days, How Much Pain Have You [place]? Some Information not available 12/22/2023 In General, [...] Past 7 Days, How Often Have You [place] Sleepy In The Daytime? Never Information not [...] Yes Information not available 06/10/2023 Do You Use Sunscreen Routinely? Yes Information not available 12/22/2023 Has Tobacco Cessation Counseling Been Provided? No Information not available 12/22/2023 On What Date Was Tobacco Cessation Counseling Provided? 06/15/2024 Information not available 06/15/2024 How Many Years Have You Smoked Tobacco? 30 Quit 10 Years Ago Information not available 12/22/2023 Sex: Male Functional Status Question Answer Note LastModified by Organizat ion Details LastModified Time Do you use any illicit or recreational drugs? No Information not available 06/10/2023 Do you or have you ever used any other forms of tobacco or nicotine? No Information not available 06/10/2023 What is your level of alcohol consumption? None Former mebyma Information not available 06/13/2023 Are you currently employed? No Retired Information not available 12/22/2023 Are you able to care for yourself? Yes Information n ot available 06/10/2023 What is your exercise level? Moderate Information not available 06/10/2023 Mental Status Question Answer Note LastModified by Organization D etails LastModified Time Do you feel stressed (tense, restless, nervous, or anxious, or unable to sleep at night)? [id number] Information not available 12/22/2023 Family History Relationship Description Onset Age of this Age Resolved Age Notes LastModified by Organization Details LastModified Time Mother Malignant tumor of breast mebywy Not available 2023 09:54:08 Mother Diabetes mellitus mebyma Not available 2023 09:54:21 Mother Hypertensive disorder akbywy Not available 2023 09:54:26 Father Malignant tumor of colon [facility] Not available 2023 09:54:14 Notes:no change Medical History Condition Response Coronary Artery Disease N Other Y Atrial Fibrillation N High Blood Pressure Y Kidney or Bladder Problems N Thyroid Problems N GI Problems N Depression N COPD Y Blood Clots N Have you had a mammogram in the last yea r? N Skin Problems N Anemia N Heart Attack (ND) N Anxiety Disorder Y Diabetes N Muscle, Joint, or Bone Problems N Seizures/Epilepsy N Have you had a colonoscopy in the last 1 0 years? Y Acid Reflux (GERD) Y Cancer N Stroke N Asthma N Allergies N Have you had a PSA blood test in the las t year? Y High Cholesterol N Hepatitis N Liver Disease N Headaches N Osteoporosis N Heart Failure N Immunizations Vaccine Type Date Status Note Provider Nam e and Address Organization Details Recorded Time Influenza, high-dose, quadrivalent, PF 0 completed [place], [place] [facility] 12/21/2023 12:27:58 Influenza, high-dose, quadrivalent, PF 2 [place] [facility] 12/21/2023 12:27:58 Influenza, adjuvanted, quadrivalent, PF 3 completed [place] [facility] 12/21/2023 12:27:58 COVID-19, mRNA, [...] Influenza, high-dose, trivalent, PF 4 completed [place] [facility] 12/21/2023 15:12:49 Tdap 2 completed [place] [facility] 01/02/2024 15:28:48 zoster, unspecified formulation 1 completed [place] [facility] 01/02/2024 15:29:10 pneumococcal polysaccharide PPV23 9 completed [place] [facility] 01/02/2024 15:29:28 Pneumococcal conjugate PCV 13 5 [place] [facility] 01/02/2024 15:29:42 Past Encounters Encounter ID Performer Location Encounter Start Date Encounter Closed Date Diagnosis/Indication Diagnosis SNOMED-CT Code Diagnosis ICD10 Code Diagnosis Note [id number] Nicholas Siddiqi MD [facility] [address] [place] [address] 06/13/2023 09:41:38 06/13/2023 10:28:51 Chronic obstructive pulmonary disease 22879774 J44.9 pt is on trelegy and budesonide via pulmonary. all refills need to come from them. Benign ess ential hypertension 8035415 I10 stable on metoprolol tartrate 50mg bid and losartan 50mg daily. Long-term drug therapy 582317906 Z79.899 Hyperlipidemia 62638410 E78.5 stable on atorvastat in 20mg daily. labs every fall with [facility] Multiple p remature ventricular complexes 968068307 I49.3 plans for ablation in august. . [id number] Nicholas Siddiqi MD [facility] [address] [place] [address] 11/15/2023 13:47:04 11/15/2023 15:00:59 Benign essential hypertension 2497486 I10 stable on metoprolol tartrate 50mg bid and losartan 50mg daily. Hyperlipidemia 64384774 E78.5 stable on atorvastat in 20mg daily. labs every fall with [facility] Chronic ob structive pulmonary disease 79609519 J44.9 pt is on trelegy and budesonide via pulmonary. all refills need to come from them. Multiple p remature ventricular complexes 370746537 I49.3 Stable on beta-block er therapy Long-term drug therapy 648166876 Z79.899 All labs are currently up-to-date with [facility] Anxiety 49379301 F41.9 Trial of low-dose citalopram 10 mg daily in case the generalize d pruritus is coming from underlying anxiety Generalized pruritus 276 416726 L29.9 Patient can continue to use his hydroxyzin e as directed. [id number] Nicholas Siddiqi MD [facility] [employer] [address] [place] [address] 12/22/2023 13:39:50 12/22/2023 14:50:02 Adult health examination 382314797 Z00.00 Health Risk Assessment collected and reviewed Generalized pruritus 276 536712 L29.9 STOP atorvastat in med until further notice. Post-herpe tic trigeminal neuralgia 93254279 B02.22 left side anterior chest and back Prostate s pecific antigen above reference range 985501020 R97.20 9.791 [facility] [address] Byrd labs. Benign ess ential hypertension 4339012 I10 stable on metoprolol tartrate 50mg bid and losartan 50mg daily. Chronic ob structive pulmonary disease 82924188 J44.9 pt is on trelegy and budesonide via pulmonary. all refills need to come from them. Hyperlipidemia 02960944 E78.5 stable on atorvastat in 20mg daily. labs every fall with [facility] Long-term drug therapy 567799287 Z79.899 All labs are currently up-to-date with [facility] [id number] Nicholas Siddiqi MD [facility] [place] [address] [place] [address] 06/15/2024 16:11:46 06/18/2024 16:31:05 Body mass index 20-24 - normal 076371030 Z68.24 24.1 Tonsil asymmetry 9393393 03 J35.8 Health Concerns Section Related Observation LastModified by Organization Detai ls LastModified Time None Recorded Concern Status LastModified by Organization Details LastModified Time None Recorded Advance Directives Directive Y: Payers Encounter Date Sequence Insurance Name Policy Number Policy Pride Covered Member ID Pride Member ID Guarantor Name 06/13/2023 1 [place] Lawrence Clanin [id number] Lawrence Clanin 06/13/2023 2 [employer] (MEDICARE SUPPLEMENT) Lawrence Clanin [id number] Lawrence Clanin 11/15/2023 1 [place] Lawrence Clanin [id number] Lawrence Clanin 11/15/2023 2 [employer] OPTIONS (MEDICARE SUPPLEMENT) Lawrence Clanin [id number] Lawrence Clanin 12/22/2023 2 [employer] OPTIONS (MEDICARE SUPPLEMENT) Lawrence Clanin [id number] Lawrence Clanin 12/22/2023 [place] [facility] Lawrence Clanin [id number] Lawrence Clanihoracio Notes Date Note Type Note Provider Name and Address Organization Details Recorded Time 06/13/19 24 text/htm l COPDReported bypatient.Notes:pt is on trelegy and budesonide. he needs to get these refills from Pulmonary. he has appt tuesday with themHyperlipidemiaReported bypatient.Notes:on atorvastatin 20mg daily. UTD via the [facility] every fall.HypertensionReported bypatient.Notes:stable on metoprolol and losartan. 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 Cardiac of hx of PVC's that are so frequent. He has seen specialist after specialist. He just finished a 30 day event monitor. 14% PVCs. He is getting ablation september 01. MARNIE Hernandez Attn: Accounting,[address] [facility], [place], [address], [facility] [facility] 06/13/2023 10:24:36 11/15/19 24 text/htm l Had skin testing at [facility] that did not show any allergy on skin at all.Derm visit med trials did not help at all for the generalized pruritus. 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 MARNIE Hernandez Attn: Accounting,[address] [facility], [place], [address], [place] 12/05/2023 09:02:47 12/22/19 24 text/htm l MAW [...] the home MARNIE Hernandez Attn: Accounting,[address] [place], [address], [facility] 01/09/2024 09:17:34 "
--- OUTSIDE RECORDS SUMMARY | 2024-06-26 06:37 | XMS_ITS | Continuity of Care Document ---
Author Organization [facility] Address [address] [place] [address] Phone Care Team Providers Care Board Handler Name Role Phone Ralph Romero MD Unavailable Unavailable Allergies, Adverse Reactions, Alerts Substance Reaction Status Criticality No Known Allergies Active No Inform ation Advance Directives Directive Yes / No Effective Date File Name No Information Encounters Encounter Description Practice Location Reason(s) For Visit Diagnoses Date Provider Providers Copied on Encounter [facility], [address] [place], [place], [id number], tel:[phone] [facility] No Information Nick Rosas. [address] [place], [place], [id number], . tel:[phone] Referring Provider: Ralph Romero [address] [place], [place], [id number]. tel:[phone] Family History Family Member Type Diagnosis Age At Onset No Information Payers Payer name Insurance type Covered alliance party ID Authoriza tion(s) No Information Social [...]
--- OUTSIDE RECORDS SUMMARY | 2024-06-26 06:37 | XMS_ITS | Data Portability ---
Author Organization [facility], Main Office Address [address] [place] [address] Assessment Encounter Date Assessment Date Assessment LastModified [...] given for Pt to discuss with his executive pastry chef for consideration. All medication directions, interactions, adverse [...] for nebulizati on 2021 022 ANDREIA [id number], [address], [place], [address], 09:12:48 doxycyclin e hyclate 100 mg capsule 2020 022 AT[facility], [address], [place], [address], 03/04/202 2 08:50:15 Medrol (Martin) 4 mg tablets in a dose pack 2020 022 ATHENAFAX [facility], [address] [place], [address], 2 08:50:15 budesonide 1 mg/2 mL suspension for nebulizati on 2020 021 [email or web address] Not available 11:39:25 doxycyclin e hyclate 100 mg capsule 2020 [email or web address], [address], [place], [address], 2 08:43:03 Medrol (Martin) 4 mg tablets in a dose pack [email or web address], [address] , [place], [address], 2 08:43:32 ipratropiu m 0.5 mg-albuter ol 3 mg (2.5 mg base)/3 mL nebulizati on soln 2020 [facility], [address] , [place], [address], 13:55:31 Patient TargetsNo targets recorded. Patient InstructionsNo [...] 1 82 /min 20 /min 96.8 [degF] 94211.8 9 g 170.18 cm 26.9 kg/m2 96 % 96 % 159 mm[Hg] 81 mm[Hg] [facility] 1 13:09:04 Date Recorded Body height Heart rate Respiratory rate Body temperature Body mass index (BMI) Body weight Oxygen saturation Oxygen saturation in Arterial blood by Pulse oximetry Systolic blood pressure Diastolic blood pressure Provider Name and Address Organization Details Last Updated DateTime 1 170.18 cm 87 /min 20 /min 97.2 [degF] 26.8 kg/m2 25051.3 g 94 % 94 % 132 mm[Hg] 76 mm[Hg] [facility] 1 11:18:32 Date Recorded Body height Heart rate Respiratory rate Body temperature Body mass index (BMI) Body weight Systolic blood pressure Diastolic blood pressure Provider Name and Address Organization Details Last Updated DateTime 2 170.18 cm 78 /min 20 /min 98.2 [degF] 27.4 kg/m2 20348.6 6 g 142 mm[Hg] 76 mm[Hg] Parent [facility] 08:44:58 Social History Question Answer Notes LastModified by Organizat ion Details LastModified Time Tobacco Smoking Status Former Smoker Parent null, [facility] 05/12/2020 12:45:46 Are You Blind Or Do You Have [...] no t available 05/12/2020 Do You Use Sunscreen Routinely? Yes Information not available 05/12/2020 Sex: Unknown Functional Status Question Answer Note LastModified by Organizat ion Details LastModified Time Do you use any illicit or recreational drugs? No Information not available 12/23/2020 Do you or have you ever used any other forms of tobacco or nicotine? No Information not available 12/23/2020 What is your level of alcohol consumption? Occasional Information not available 12/23/2020 Do you have difficulty walking or climbing [...] quadrivalent, preservative 0 completed Kim camp, [facility] 05/12/2020 12:44:36 zoster live 1 [facility] 12:44:52 Past Encounters Encounter ID Performer Location Encounter Start Date Encounter Closed Date Diagnosis/Indication Diagnosis SNOMED-CT Code Diagnosis ICD10 Code Diagnosis Note [id number] Tila Zazueta PA-C Main Office [address] [facility] [address] [place] [phone] 05/12/2020 11:24:57 05/12/2020 14:04:09 Acute exacerbation of bronchiectasis 131891293 J47.1 Acute exac erbation of chronic obstructive pulmonary disease 604105714 J44.1 [id number] Vic Andrews, Main Office [address] [facility] [address] [place] [phone] 12/23/2020 10:58:21 12/30/2020 17:00:24 Acute exacerbation of bronchiectasis 165308349 J47.1 Acute exac erbation of chronic obstructive pulmonary disease 242939347 J44.1 [id number] Jaime Levy, Main Office [address] [facility] [address] [place] [address] 04/17/2021 08:25:43 04/17/2021 09:52:38 Bronchiectasis 03907293 J47.9 Budesonide renewed as directed per nebulizer. Patient agreed to continue all current medication s and follow up p.r.n. if concerns arise before he returns to [place] in May. Health Concerns Section Related Observation LastModified by Organization Detai ls LastModified Time None Recorded Concern Status LastModified by Organization Details LastModified Time None Recorded Advance Directives Directive None Recorded Payers Encounter Date Sequence Insurance Name Policy Number Policy Pride Covered Member ID Pride Member ID Guarantor Name 05/12/2020 1 [place] Lawrence W Clanin [id number] Lawrence Clanin 05/12/2020 2 [employer] OPTIONS (MEDICARE SUPPLEMENT) Lawrence Clanin [id number] Lawrence Clanin 12/23/2020 1 [place] Lawrence W Clanin [id number] Lawrence Clanin 12/23/2020 2 [employer] OPTIONS (MEDICARE SUPPLEMENT) Lawrence Clanin [id number] Lawrence Clanin 04/17/2021 1 [place] Lawrence W Clanin [id number] Lawrence Clanin 04/17/2021 2 [employer] OPTIONS (MEDICARE SUPPLEMENT) Lawrence Clanin [id number] Lawrence Clanin Notes Date Note Type Note Provider Name and Address Organization Details Recorded Time 05/12/2020 text/html Long history of COPD. Pt having exacerbation of COPD. Wheezing and shortness of breath x 1 week. Pt has been using his nebulizer. Thick white mucus small amount sometimes coming up with cough. Pt has had doxycycline and medrol dose pack as directed per his executive pastry chef. He quit smoking 7 yrs ago. ROLAND Fernández [facility] 05/12/2020 14:00:18 12/23/2020 text/html Pt c/o cough, thick mucus x 1 week. Long history of COPD/bronchiectasi s. Pt is followed by executive pastry chef. He uses trelegy inhaler and he has been using his duoneb in nebulizer. Thick white mucus small amount sometimes coming up with cough. Pt has had doxycycline and medrol dose pack as directed per his executive pastry chef. He quit smoking 7 yrs ago. ROLAND Fernández [facility] 12/24/2020 17:36:58 04/17/2021 text/html patient needs refill on budesonide suspension for his nebulizer. History of bronchiectasis. He is followed by pulmonology in [place]. He will be returning to [place] in May. Valeria camp [place] - [facility] 04/17/2021 09:13:09
--- OUTSIDE RECORDS SUMMARY | 2024-06-26 06:37 | XMS_ITS | Patient Health Record ---
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.] show increased immature granulocytes without clinical significance.) -Sedimentation Rate-Westergr en Reviewed date:10/27/2023 12:49:59 PM Interpretation:Normal Performing Lab:[facility], [address] [place] [id number], Phone - [phone], Director - [facility] Notes/Report: Sedimentation Rate-Westergren 2 0-30 mm/hr -CMP (14) Reviewed date:10/27/2023 12:48:45 PM Interpretation:Normal Performing Lab:[facility], [address] [place] [id number], Phone - [phone], [facility] - [facility] Notes/Report: Glucose 92 70-99 mg/dL BUN 19 [...] 0-40 IU/L ALT (SGPT) 21 0-44 IU/L ABN Option 3 Reviewed date:10/27/2023 12:48:58 PM Interpretation:Interpretation Performing Lab:[facility] [id number], Phone - [phone], Director - Jose Angel Notes/Report: ABN Option 3 One or more tests were removed at the request of the patient and may not be represented on this report. As a result, some or all of the tests originally requested may not have been performed or may be reported separately. Please contact your patient regarding any necessary follow-up. -Respiratory Allergens w/Tot al IgE Area 8 Reviewed date:11/14/2023 02:11:45 PM Interpretation:Normal Performing Lab:[facility] [id number], Phone - [phone], Director - Rojelio Notes/Report: Class Description Levels of Specific IgE Class Description of Class ----- < 0.10 0 Negative 0.10 - 0.31 0/I Equivocal/Low 0.32 - 0.55 I Low 0.56 - 1.40 II Moderate 1.41 - 3.90 III High 3.91 - 19.00 IV Very High 19.01 - 100.00 V Very High >100.00 Very High Immunoglobulin E, Total 52 6-495 IU/mL J196-NiC D pteronyssinus <0.10 Class 0 kU/L G771-KdF D farinae <0.10 Class 0 kU/L Y178-KkU Cat Dander <0.10 Class 0 kU/L J270-SiM Dog Dander <0.10 Class 0 kU/L W486-FiF Mouse Urine <0.10 Class 0 kU/L H137-ElH Bermuda Grass <0.10 Class 0 kU/L B601-JwG Bernardino Grass <0.10 Class 0 kU/L Y461-LbN Cockroach, Lao <0.10 Class 0 kU/L L972-YwN Penicillium chrysogen <0.10 Class 0 kU /L L816-RrI Cladosporium herbarum <0.10 Class 0 kU /L A971-GxF Aspergillus fumigatus <0.10 Class 0 kU /L X593-TeH Alternaria alternata <0.10 Class 0 kU/ L X319-PqO Maple/[place] <0.10 Class 0 kU/L K361-XyA Cochran, Mountain <0.10 Class 0 kU/L G130-WqQ [place], White <0.10 Class 0 kU/L Z177-GjB Elm, Trinidadian <0.10 Class 0 kU/L O873-GqB P[place] <0.10 Class 0 kU/L S843-EvV Maple [place] <0.10 Class 0 kU/L C561-OiH Mumford <0.10 Class 0 kU/L J147-DiL David, White <0.10 Class 0 kU/L S455-CmK Pecan, [place] <0.10 Class 0 kU/L Y696-RzB White [place] <0.10 Class 0 kU/L A003-KuH Ragweed, Short <0.10 Class 0 kU/L H539-OwW Thistle, [place] <0.10 Class 0 kU/L L552-ZqL Pigweed, Common <0.10 Class 0 kU/L W413-BoU Rough Marshelder <0.10 Class 0 kU/L Reason For Referral No Information Medications Medication [...] Status Risk Notes Problem Chronic allergic conjunctivitis (71956398) Other chronic allergic conjunctivitis (H10.45) Active confirmed Problem Allergic rhinitis caused by pollen (disorder) (44965541) Allergic rhinitis due to pollen (J30.1) Active confirmed Problem Chronic rhinitis (70047114) Chronic rhinitis (J31.0) Active confirmed Vital Signs Oximetry 97 % 01/25/2024 Blood pressure diastolic 78 mm Hg 01/25/2024 Height 67 in 01/25/2024 Blood pressure systolic 134 mm Hg 01/25/2024 Weight 154 lbs 01/25/2024 BMI 24.12 kg/m2 01/25/2024 Encounters Encounter Location Date Provider Diagnosis [facility] [address] [address] 10/18/2023 Barb Leiva 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 Discuss Losartan with Plant Pathologist before considering holding. Moisturizer recommended. He is [...] Insured Coverage Start Date Coverage End Date [employer] (Medicare) Attention Claims [address] [place] [address] [id number] Lawrence Kwon Self - patient is the insured [facility] [address] [place] [address] [id number] Lawrence Kwon Self - patient is the insured Medical (General) History Medical History History ICD Code Hypertension COPD Zoster without complications B02.9 Surgical History Surgery Date(Month/Year) Hernia surgery Cardiac ablation 09-02-2023 Hospitalization History Reason Date(Month/Year) above surgeries
--- OUTSIDE RECORDS SUMMARY | 2024-06-26 06:37 | XMS_ITS | Encounter Summary ---
Author Name [facility] [place] [facility] [place] Address [address] [place] [address] Care Team Providers Care Slot Key Person Name Role Phone RONALOTIS LISA Primary Care [...] SUPP F Sep 15, 2015 PLAN F [id number] [place] VICENTE PATIENT AARP MED SUPP MEDIGAP PLAN F MEDIC ARE SUPPL EMENT Sep 15, 2015 PLAN F [id number] [phone] [place] V[place]ENT[place] PATIENT [facility] RX PRESCRIPT ION CATER KRYSTAL R Feb 14, 2018 PRXCAT [id number] [place] VICENT[place] PATIENT [facility] RX ([id number]) PRESCRIPT ION CATER KRYSTAL R Feb 14, 2018 PRXCAT [id number] [phone] [place] VICENTE PATIENT MEDICARE (WNR) MEDICARE (M) PART A Sep 15, [id number] [facility] CLANIN,CL IFFORD PATIENT MEDICARE (WNR) MEDICARE (M) PART B Sep 15, [id number] [facility] [phone] CLANIN,CAROLA CARRILLO PATIENT MEDICARE (WNR) MEDICARE (M) PART A Sep 15, [id number] [facility] CLANIN,CAROLA CARRILLO PATIENT MEDICARE (WNR) MEDICARE (M) PART B Sep 15, [id number] [facility] CLANIN,CAROLA CARRILLO PATIENT [facility] POINT OF SERVICE TOMI Mosley Feb 14, 2001 [id number] CLANIN,CAROLA CARRILLO PATIENT Selected Encounter This section includes the information on record at [place] for the Encounter. Date/Time Encounter Type Encounter Description Reason Provider Source June 25, 2024 10:00 AM OFFICE O/P EST MOD 30 MIN PRIMARY CARE/MEDICINE ICD-10-CM I10 Essential (primary) hypertension [facility] Encounter Template Text not used by [place] Assessments - Encounter Diagnoses This section includes the primary and secondary diagnoses documented for the Encounter. Date/Time Primary/Secondary Diagnosis Diagnosis Name Provider Source June 25, 2024 10:19 AM PRIMARY Essential (primary) hypertension [facility] June 25, 2024 10:19 AM SECONDARY Chronic obstructive pulmonary disease, unspecified [facility] June 25, 2024 10:19 AM SECONDARY Elevated prostate specific antigen [PSA] [facility] June 25, 2024 10:19 AM SECONDARY Family history of malignant neoplasm of digestive organs [facility] June 25, 2024 10:19 AM SECONDARY Polyp of colon [facility] Plan of Treatment: Future Appointments (+ 6 months) and Future Tests (+/- 45 days) The Plan of Treatment section includes future care activities for the patient from all [place] treatmentfacilities. This section includes future appointments and future orders which are active, pending or scheduled. Future Appointments This section includes appointments that were scheduled to occur 6 months from the date of the Encounter, up to a maximum of 20 appointments. The data comes from all [place] treatment facilities. Appointment Date/Time Appointment Type Appointme nt Facility Name June 29, 2024 12:00 PM AMBULATORY - MEDICINE [facility] Oct 31, 2024 10:00 AM AMBULATORY - SURGERY [facility] Anita IMANI [facility] Dec 03, 2024 10:15 AM AMBULATORY - MEDICINE [facility] Lab Results: +/- 30 days of the encounter This section includes the Chemistry and Hematology Lab Results on record with [place] for the patient. Radiology Reports and Pathology Reports are provided separately, in subsequent sections. Lab Results This section contains the Chemistry/Hematology Results that were resulted 30 days before or 30 daysafter the date of the Encounter. Date/Time Source Result Type Result - Unit Interpretation Reference Range Specimen Type Comment June 25, 2024 11:00 AM [facility] LIPID PANEL (STL) PLASMA Specimen Type: PLASMA Comment: No hemolysis noted. Ordering Provider: LISA GUARDADO Report Released Date/Time: June 25, 2024 10:11 AM Reporting Lab: [place] [address] [facility] [address] Performing Lab: [address] [address] CHOLESTEROL 135 mg/dL 0-200 TRIGLYCERIDE 79 mg/dL 0-150 CALCULATED LDL 66 mg/dL HDL(New) 53 mg/dL >40 June 25, 2024 11:00 AM [facility] HEPATIC FUNTION PANEL (STL) PLASMA Specimen Ty pe: PLASMA Comment: No hemolysis noted. Ordering Provider: LISA GUARDADO Report Released Date/Time: June 25, 2024 10:11 AM Reporting Lab: [place] [address] [facility] [address] Performing Lab: [place] [address] [facility] [address] PROTEIN 6.7 g/dL 6-8.6 ALBUMIN 4.2 g/dL 3.4-5 TOTAL BILIRUBIN 0.9 mg/dL 0.2-1.2 ALKALINE PHOSPHATASE 89 U/L 40-150 AST/SGOT 27 U/L 5-34 ALT/SGPT 16 U/L 8-40 CONJ. BILIRUBIN 0.3 mg/dL 0-0.5 June 25, 2024 11:00 AM [facility] BASIC METABOLIC PANEL PLASMA Specimen Type: PL ASMA Comment: No hemolysis noted. Ordering Provider: LISA GUARDADO Report Released Date/Time: June 25, 2024 10:11 AM Reporting Lab: [facility] [address] [facility] [address] Performing Lab: [address] [address] CREATININE 0.80 mg/dL 0.7-1.3 UREA NITROGEN 12.8 mg/dL 9.0-25.0 GLUCOSE 95 mg/dL 72-99 SODIUM 139 meq/L 136-145 POTASSIUM 4.6 meq/L 3.5-5 CHLORIDE 108 meq/L H 98-107 CARBON DIOXIDE 26 meq/L 22-31 CALCIUM 9.4 mg/dL 8.4-10.4 EGFR (CKD-EPI 2020) 93.5 >60 June 25, 2024 11:00 AM [facility] HGA1C BLOOD Specimen Type: BLOOD No comment entered. Ordering Provider: LISA GUARDADO Report Released Date/Time: June 25, 2024 10:11 AM Reporting Lab: [facility] [address] [place] [phone] Performing Lab: [address] [address] HGA1C 5.7 4.0-6.0 June 25, 2024 11:00 AM [facility] PROST. SPECIFIC AG.(PB-STL) SERUM Specimen Ty pe: SERUM Comment: The listed sex of this patient may not be a typical indication for this test. Therefore, reference ranges or interpretive criteria listed may not be valid. Clinical correlation suggested. Ordering Provider: LISA GUARDADO Report Released Date/Time: June 25, 2024 10:11 AM Reporting Lab: [facility] [address] [place] [phone] Performing Lab: [address] [address] PROST. SPECIFIC AG.(PB-STL) 9.696 ng/mL HH 0-4 June 25, 2024 11:00 AM [facility] CBC BLOOD Specimen Type: BLOOD No comment entered. Ordering Provider: LISA GUARDADO Report Released Date/Time: June 25, 2024 10:11 AM Reporting Lab: [facility] [address] [facility] [address] Performing Lab: [facility] [address] [facility] [address] WBC 6.1 10*3/uL 3.6-11.2 RBC 3.86 10*6/uL L 4.10-5.70 HGB 11.8 g/dL L 13.1-16.8 HCT 36.1 L 38.2-48.4 MCV 93.5 fL 80.0-100.0 MCH 30.6 pg 27.0-34.0 MCHC 32.7 g/dL L 33.0-36.0 PLT 374 10*3/uL 150-400 MPV 11.2 fL 7.5-11.2 RDW 14.6 11.8-15.1 LYMPHOCYTES, AUTO % 16 MONOCYTES, AUTO % 9 NEUTROPHILS, AUTO % 69 EOSINOPHILS, AUTO % 5 BASOPHILS, AUTO % 1 LYMPHOCYTES, ABSOLUTE 0.98 10*3/uL 0.77- 4.50 MONOCYTES, ABSOLUTE 0.53 10*3/uL 0.19-0. 80 NEUTROPHILS, ABSOLUTE 4.17 10*3/uL 2.10- 8.00 EOSINOPHILS, ABSOLUTE 0.33 10*3/uL 0.00- 0.60 BASOPHILS, ABSOLUTE 0.06 10*3/uL 0.00-0. 20 June 25, 2024 11:00 AM [facility] URINALYSIS (L-PB) URINE Specimen Type: URIN E No comment entered. Ordering Provider: LISA GUARDADO Report Released Date/Time: June 25, 2024 10:11 AM Reporting Lab: [facility] [address] [facility] [phone] Performing Lab: [facility] [address] [place] [phone] URINE COLOR Yellow Yellow U.BILIRUBIN Negative mg/dL Negative U.PH 7.0 5.0-8.0 URINE WBC/HPF <1 /[HPF] 0-5 URINE RBC/HPF 1 /[HPF] 0-5 APPEARANCE Clear Clear U.NITRITE Negative mg/dL Negative MUCUS RARE /[LPF] Negative-Rare URN.GLUCOSE Normal mg/dL Negative URN.PROTEIN 20 mg/dL H URN.UROBILINOGEN Normal mg/dL Normal URN.BLOOD Negative mg/dL Negative-Trace URN.KETONES Negative mg/dL Negative-Trac e URN.LEUK.EST. Negative mg/dL Negative-Tr dominique URN.SPECIFIC GRAVITY 1.027 Vital Signs: All taken on the encounter date This section contains inpatient and outpatient Vital Signs collected on the date of the Encounter. Date/Time Temperature Pulse Blood Pressure Respiratory Rate SP02 Pain Height Weight Body Mass Index Source June 25, 2024 09:37 AM 142/93 [facility] June 25, 2024 09:29 AM 98.2 74 151/87 16 95 0 67 142 22 [facility] Social History: Smoking Status (Most current) and Tobacco Use (All prior to encounter date) This section includes the most current, and the historical, smoking and tobacco- related health factors from the [place] facility where the Encounter took place. Current Smoking Status This section includes the most current smoking, or tobacco-related health factor, from the [place] facility where the Encounter took place. Date/Time Current Smoking Status Comment Facil ity Jan 23, 2024 10:30 AM [place]-TOBACCO USE FOR ALEXY CIGARETTES [facility] Tobacco Use History This section includes a history of the smoking, or tobacco-related health factors, that were collected on or before the date of the Encounter. The data comes from the [place] facility where the Encounter took place. Date/Time Smoking Status/Tobacco Use Comment F acility Jan 23, 2024 10:30 AM VA-TOBACCO USE FOR ALEXY CIGARETTES [facility] Feb 15, 2023 11:00 AM VA-TOBACCO FORMER USER [facility] Feb 15, 2023 11:00 AM VA-TOBACCO QUIT 5 TO < 15 YRS [facility] Jan 26, 2022 11:00 AM VA-TOBACCO FORMER USER [facility] Jan 26, 2022 11:00 AM VA-TOBACCO QUIT 5 TO < 15 YRS [facility] Jan 16, 2021 10:00 AM VA-TOBACCO NEVER USED [facility] Jan 17, 2020 10:30 AM VA-TOBACCO FORMER USER [facility] Jan 17, 2020 10:30 AM VA-TOBACCO QUIT 5 TO < 15 YRS [facility] Dec 27, 2017 09:21 AM VA-TOBACCO FORMER USER [facility] Dec 27, 2017 09:21 AM VA-TOBACCO QUIT 1 TO < 5 YRS [facility] Jan 11, 2017 09:46 AM QUIT TOBACCO >12 M O & <7 YRS AGO [facility] Advance Directives: All historical and current Section Date Range: From patient's date of to the date document was created. This section includes ALL of a patient's completed or amended [place] Advance and Rescinded Directives. The entries below indicate that a directive exists for the patient, but an actual copy is not included with this document. The data comes from all [place] facilities. Date Advance Directives Provider Source Jun 09, 2007 ADVANCE DIRECTIVE FABBY RITTER [facility] Encounter Notes: All associated encounter notes This section contains the clinical notes associated to the Encounter. Date/Time Encounter Note(s) Provider Source June 25, 2024 10:08 AM PRIMARY CARE NOTE: LOCAL TITLE: PRIMARY CARE PROVIDER ESTABLISHED VISIT [facility] STANDARD TITLE: PRIMARY CARE NOTE DATE OF NOTE: JUNE 25, 2024@10:08 ENTRY DATE: JUNE 25, 2024@10:08:44 AUTHOR: LISA GUARDADOIGNER: URGENCY: STATUS: COMPLETED Reason for visit: Scheduled follow-up Chief complaint: Management of chronic diseases HPI: Patient is a 73 year old MALE with past medical history of HTN, HLD, COPD, pulmonary nodule, PVCs who presents for chronic disease management. Patient reports sore throat since Mar 26. He was seen June 15 when he returned from [place]. Found to have enlarged tonsil. He saw Dr. Angel Dolan, ENT, who biopsied on 06/16/24. Biopsy result was negative, but given clinical enlargement he re-biopsied last Tuesday and no result available. CT head/neck scheduled for tomorrow. Admits dysphagia, unintentional weight loss, loss of appetite. Was seeing art sales consultant and did not have any allergies on testing. Has had COPD exacerbation and was treated with steroids. follows with [facility] and non-VA pulm. He discussed dupixent with non-va pulm and did bloodwork to assess candidacy. He plans to discuss this option with Dr. Glass at upcoming appt. He denies chest pain or heaviness with exhertion. Denies any palpitations or pvc symptoms since ablation last year. he denies bowel or bladder complaints. [place] Applier Dr. Hui Dietz Urologist Dr. Carson PEREZ Cardiology DR. Jeannette Whitfield- lynda SOURCE(S) OF HISTORY: Patient [facility] records reviewed and summarized Problem List: 1) Benign essential hypertension (SNOMED CT 6561210) 2) Tobacco use comment: total pack year hx >30, quit smoking 2014 3) Family history of cancer of colon (SNOMED CT 302589384) 4) Elevated PSA (SNOMED CT 725623216) 5) Chronic obstructive pulmonary disease 6) Polyp of colon comment: Last colonoscopy January 2016, repeat January 2021 Medication Review: The essential medication list which includes the patient's active VA prescriptions and if applicable, remote VA prescriptions, non-VA prescriptions, and discontinued VA prescriptions within the last 90 days has been reviewed. Active Outpatient Medications (including Supplies): Issue Date Status Last Fill Active Outpatient Medications Refills Expiration === 1) ALBUTEROL 3/IPRATROP 0.5MG/3ML INHL 3ML Qty: ACTIVE Issue: 08/01/23 360 for 90 days Sig: INHALE 1 VIAL (3ML) BY Refills: 0 Last : 06/08/24 NEBULIZATION FOUR TIMES A DAY DIRECTED Expr : 08/01/24 Indication: FOR COPD 2) ALBUTEROL 90MCG (CFC-F) 200D ORAL INHL Qty: ACTIVE Issue: 02/24/24 3 for 90 days Sig: INHALE 2 PUFFS BY ORAL Refills: 2 Last : 05/14/24 INHALATION FOUR TIMES A DAY NEEDED SHAKE Expr : 02/24/25 WELL. RINSE MOUTHPIECE FREQUENTLY TO PREVENT CLOGGING. Indication: FOR COPD Start Date Active Non-VA Medications Status Stop Date === 1) Non-VA BUDESONIDE 1MG/2ML INH SUSP 2ML Sig: ACTIVE 1 UNIT (2ML) NEBULIZATION ONCE A DAY Indication: FOR ASTHMA 2) Non-VA CALCIUM POLYCARBOPHIL 625MG TAB Sig: ACTIVE 625MG BY MOUTH ONCE A DAY 3) Non-VA CHOLECALCIF 50MCG (D3-2,000UNIT) TAB ACTIVE SiUNIT BY MOUTH ONCE A DAY 4) Non-VA LOSARTAN 100MG TAB SiMG BY MOUTH ACTIVE ONCE A DAY Indication: FOR HIGH BLOOD PRESSURE 5) Non-VA METOPROLOL TARTRATE 50MG TAB Sig: ACTIVE 25MG BY MOUTH TWICE A DAY Indication: FOR PVC 6) Non-VA ROFLUMILAST 500MCG TAB SiMCG BY ACTIVE MOUTH ONCE A DAY Indication: FOR COPD 7) Non-VA TRELEGY ELLIPTA 100/62.5/25MCG INH ACTIVE 30D Si PUFF BY ORAL INHALATION ONCE A DAY Indication: FOR COPD 9 Total Medications Allergies: Known allergies including local and remote allergies have been reviewed. LISINOPRIL ROS negative unless otherwise specified in HPI. OBJECTIVE: Vitals: Weight: 142 lb [64.41 kg] (06/25/2024 09:29) Blood Pressure: 142/93 (06/25/2024 09:37) Pulse: 74 (06/25/2024 09:29) Respirations: 16 (06/25/2024 09:29) Temperature: 98.2 F [36.8 C] (06/25/2024 09:29) O2 sats on RA: 95% (06/25/2024 09:29) PHYSICAL EXAM: General Appearance: well groomed, well nourished male, no apparent distress Skin: no lesions or rashes noted Head: normocephalic, atraumatic Eyes: PERRL, EOMi. Ears: Canals clear. TMs without bulging or erythema. Oropharynx:L tonsillar enlargment, Lungs: clear to auscultation bilaterally. Respirations symmetrical. Heart: regular rate and rhythm S1, S2 without m/r/c/g. Abdomen: Soft. +BS. ND/NT to palpation. Extremities: LE without edema, pedal pulses intact Neurologic: cranial nerves grossly intact, normal gait [...] SPECIFIC AG.(PB-STL) 9.791 H* ng/mL 09/26/2023 14:30 Data results reviewed with patient and/or caregiver. Assessment/Plan: # tonsillar mass - s/p biopsy 06/16- benign, 06/22- path pending - following with private ENT # COPD - currently on Trelegy (purchasing out of pocket), budesonide neb daily, and albuterol MDI prn. Following with private Pulm and [place] pulm for co-management. Albuterol MDI and neb solution [facility] from [facility] - upcoming follow up scheduled with Dr. Glass- ayan ? # HTN - slightly elevated today, - continue current medications. # Elevated PSA - last reading 7.030 H* ng/mL 01/26/2022 12:30 patient following with private urologist, , s/p prostate biopsy 2023- pathology reportedly benign # pulmonary nodule - stable per last check Jan 2022- pt has completed more recent LDCT and will send result for review. # HLD - continue statin, check lipids # PVCs - Status post ablation 09/02/2023 - cont metoprolol 25mg bid Colorectal cancer screening: Last completed: May - [...] both lungs. 5. Extensive coronary artery disease. RTC: 6 months Time spent on date of visit including face to face time, data review, and chartin minutes IM - IMMUNIZATIONS ADMINISTERED Immunization Series Date Facility Reaction Info COVID-19 (MODERNA), MRNA, LNP-S,* 3 01/13/2021 [facility]* COVID-19 (MODERNA), MRNA, LNP-S,* 2 04/14/2020 [facility] COVID-19 (MODERNA), MRNA, LNP-S,* 1 03/17/2020 [facility] INFLUENZA, HIGH-DOSE, TRIVALENT,* C 11/08/2023 [facility]* INFLUENZA, HIGH-DOSE, TRIVALENT,* 2 11/09/2017 [facility] INFLUENZA, HIGH-DOSE, TRIVALENT,* 1 10/26/2016 [facility] INFLUENZA, SPLIT VIRUS, QUADRIVA* 01/05/2019 [facility]* INFLUENZA, SPLIT VIRUS, TRIVALEN* 01/12/2016 [facility]* INFLUENZA, SPLIT VIRUS, TRIVALEN* 01/03/2015 [facility]* INFLUENZA, SPLIT VIRUS, TRIVALEN* 01/02/2014 [facility]* INFLUENZA, UNSPECIFIED FORMULATI* [facility] INFLUEN[facility], UNSPECIFIED FORMULATI* 12/16/2021 [facility] INFLUENZA, UNSPECIFIED FORMULATI* 12/19/2020 [facility]* INFLUENZA, UNSPECIFIED FORMULATI* [facility]* INFLUENZA, UNSPECIFIED FORMULATI* 11/01/2017 [facility]* INFLUENZA, UNSPECIFIED FORMULATI* 11/08/2016 [facility]* INFLUENZA, UNSPECIFIED FORMULATI* 01/01/2013 [facility]* INFLUENZA, UNSPECIFIED FORMULATI* 01/03/2012 [facility]* INFLUENZA, UNSPECIFIED FORMULATI* 11/09/2010 [facility]* PNEUMOCOCCAL CONJUGATE PCV 13 01/03/2015 [facility]* PNEUMOCOCCAL POLYSACCHARIDE PPV23 01/05/2019 [facility]* PNEUMOCOCCAL POLYSACCHARIDE PPV23 3 01/05/2019 [facility] PNEUMOCOCCAL POLYSACCHARIDE PPV23 01/02/2014 [facility]* TDAP 07/27/2021 [facility]* TDAP 01/03/2012 [facility]* <C> ZOSTER LIVE 08/12/2011 [facility]* ZOSTER RECOMBINANT 2 04/30/2020 [place]* ZOSTER RECOMBINANT 1 01/17/2020 [facility]* CONTRAINDICATED No data available REFUSED ======= Immunization Date Facility Info COVID-19 (Konoz), MRNA, LNP-S, * 01/23/2024 [facility]* <C> <C> See the Detailed Immunizations Health [...] contact nurse coordinator for any additional problems. CLINICAL REMINDERS COMPLETED HTN Assess for Elevated BP>=140/90 - N,P,PH: The patient's blood pressure is usually adequately controlled. No medication changes are indicated at this time. /poonam/ LISA GUARDADO PHYSICIAN MEDIA CONSULTANT [employer]SIDE SALES Signed: 06/25/2024 10:31 GEOLISA [facility] June 25, 2024 09:34 AM NURSING NOTE: LOCAL TITLE: V15 PACT FACE TO FACE NOTE [facility] STANDARD TITLE: NURSING NOTE DATE OF NOTE: JUNE 25, 2024@09:34 ENTRY DATE: JUNE 25, 2024@09:34:14 AUTHOR: ARACELIS PIEDRA COSIGNER: URGENCY: STATUS: COMPLETED Provider Visit: Patient Identifiers : Full Name Date of Reason for visit: Established Follow-Up Mode of Arrival: Ambulatory Allergy Review: LISINOPRIL NOV 07, 2009 (HISTORICAL) Symptoms: COUGH Allergy list reviewed and remains current. Recent Vital Signs: Temperature: 98.2 F [36.8 C] (06/25/2024 09:29) Pulse: 74 (06/25/2024 09:29) Respiration: 16 (06/25/2024 09:29) B/P: 151/87 (06/25/2024 09:29) Pain: 0 (06/25/2024 09:29) Wt: 142 lb [64.41 kg] (06/25/2024 09:29) Ht: 67 in [170.2 cm] (06/25/2024 09:29) BMI: 22.3 POX: 95% (06/25/2024 09:29) PERSONAL HEALTH INVENTORY Notes: No data available for PHI note titles PERSONAL HEALTH INVENTORY - MAP: 01/23/2024 Personal Health Plan [place], [place], [place] (MAP) Family and health What matters most to you in your life right now? ---- 's Response: family Would you like to discuss any personal problem, family problem, alcohol use, drug use, or a mental or emotional illness? No My [facility] ([facility]), please select appointment type: Face to face: Yes-Do you have an upgraded (Premium) account which gives you the added benefit of Secure Messaging with your Primary Care Provider and refilling your prescriptions online? Yes- Done Other comments: Contact provided Primary Care phone number and encouraged to call if any questions or concerns. Review that after hours nurse line [phone] and emergency room are available 06/09 for patient use. Contact verbalized good understanding. RHS Screen - VS: RHS Screen Session Format: Face to Face Environmental Check Upon inquiry, the individual reports that the environment is safe to proceed. Informed Consent to Screen and Document The individual consents to proceed with screening. The individual consents to documentation of responses. PRIMARY SCREEN: In the past 12 months, how often did a current or former intimate partner (e.g., boyfriend, girlfriend, , , sexual partner): 1. Scream or curse at you Never 2. Insult or talk down to you Never 3. Threaten you with harm Never 4. Physically hurt you Never 5. Force or pressure you to have sexual contact against your will, or when you were unable to say no Never The HITS tool (items 1-4 above) is [place] copyright protected by Yan Hutchinson MD, and the user has full rights to use it throughout the [place] system. PRIMARY SCREEN RESULT: The Primary Screen is NEGATIVE. The individual answered never to all forms of IPV above (i.e., answered never to all 5 items) The individual accepts education and/or resources: No EDUCATION: The individual indicated readiness to learn. Education offered during this session as noted above. The individual indicated understanding by asking relevant questions and making appropriate comments. No barriers to learning were observed or identified. Homelessness/Food Insecurity Screen - DI,L,N,P,PH,PS,S,U: In the past 2 months, have you been living in stable housing that you own, rent, or stay in as part of a household? Yes - Living in stable housing. Are you worried or concerned that in the next 2 months you may NOT have stable housing that you own, rent, or stay in as part of a household? No - Not worried about housing near future [employer] reports the following: Within the past 12 months, you worried whether your food would run out before you got money to buy more. Never true Within the past 12 months, the food you bought just didn't last and you didn't have money to get more. Never true HTN Assess for Elevated BP>=140/90 - N,P,PH: Repeat blood pressure: 142/93 /es/ ARACELIS PIEDRA LICENSED PRACTICAL NURSE Signed: 06/25/2024 09:37 TADEO,ARACELIS Beltre [facility]
--- OUTSIDE RECORDS SUMMARY | 2024-06-26 06:38 | XMS_ITS ---
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 He was evaluated at [facility]. He is following with Dr. Guzman [...] Age of carpet? 5 Do you have ston-yz-layc carpeting? Y es What is the age [...] Procedure Codes: 9 6160 PT-FOCUSED HLTH RISK [id number] DOC MEDS VERIFIED W/PT OR [id number] BMI<30 AND >=22 CALC & [id number] BP SCR PRFRM RCMDD DEFIND SCR INTVL [...] Weeks * Billing Information: * Visit Code: 74808 Office Visit, Est Pt., Level 3. Modifiers: 25 * Procedure Codes: 32502 PT-FOCUSED HLTH RISK ASSMT. G8427 DOC MEDS VERIFIED W/PT OR RE. G8420 BMI<30 AND >=22 CALC & DOCU. G8783 BP SCR PRFRM RCMDD DEFIND SCR INTVL. * Sign off status: Completed true * Provider: Raul Leiva MD Date: 1 Generated for Abel boothe/Mark/eTjose msmitting on: 0 06/26/2024 06:37 AM CDT History and Physical Notes * [...] times with improvement. He was evaluated at [facility]. He is following with Dr. Guzman [...]
--- OUTSIDE RECORDS SUMMARY | 2024-06-26 06:38 | XMS_ITS | Data Portability ---
Author Organization [place] - [facility], Main Office Address [address] [place] [address] Care Team Providers Care Bilingual Student Tutor Name Role Phone KWABENA LEVY Primary Care Provider [phone] KWABENA LEVY Referring Provider [phone] JAY BARRAGAN Primary Care Provider JAY BARRAGAN [...] pulmonary rehab referral 2022 023 [email or web address] 25 [facility], [address], [address], 3 10:58:04 Procedures None recorded. Surgeries None recorded. Imaging None recorded. Medication Orders Trelegy Ellipta 100 mcg-62.5 mcg-25 mcg powder for inhalation 2022 023 ANDREIA [facility], [address] [place], [address], 3 15:57:14 budesonide 0.25 mg/2 mL suspension for nebulizatio n 2022 023 [email or web address] [facility], [address] [place], [address], 16:31:32 roflumilast 250 mcg tablet 2022 023 [email or web address] 4 [facility], [address] [place], [address], 3 10:44:01 roflumilast 500 mcg tablet 2022 023 [email or web address] 4 [facility], [address] [place], [address], 10:44:04 Patient TargetsNo targets recorded. Patient Instructions Encounter Date Encounter Id Patient Instructions Last Modified By Organization Details Last Modified Time 01/11/2023 [id number] dementia rating scale-2* [email or web address] Not available 01/12/2023 09:48:14 multi-dimensiona l health assessment questionnaire* [email or web address] Not available 01/12/2023 09:48:18 care plan* [email or web address] Not available 12/16 09:48:09 advance care planning: care instructions Not available 01/11/2023 23:11:35 advance directiv es: care instructions Not available 01/11/2023 23:11:35 [place] Advance Directives Not available 01/11/2023 23:11:35 Personalized [...] l spine No observ ation record ed. [id number], [place], [address], 04/14/2022 05:04:14 06/29/1906/25/2022 CT, chest , w/o contr ast No observ ation record ed. [email or web address] Not Available 18:05:41 07/27/19 23 07/26/2022 compl ete PFT w/ post [facility] hodil ator lopez metry * [...] Time Severe chronic obstructiv e pulmonary disease 483524505 Active 2022 JADE Mitchell- [address] [facility], [facility] [address], [place], [address] , [facility] 3 15:54:37 Pulmonary emphysema 47461986 Active 2022 JADE Mitchell- [address] [facility], [facility] [address], [place], [address] , [facility] 3 15:00:20 Chronic cough 43990803 Active 2022 JADE Mitchell- [address] [facility], [facility] [address], [place], [address] , [facility] 3 15:01:23 Benign essential hypertensi on 6785078 Active 2021 Not Available [facility] 3 04:51:12 Plantar fascial fibromatos is 64457139 Active Not Available [facility] 3 04:51:12 Chronic obstructiv e pulmonary disease 76898848 Active 2021 Not Available [facility] 3 04:51:12 Chronic obstructiv e pulmonary disease 70256935 Completed 201706/04/2020 Not Available [facility] 3 04:51:12 Body mass index 25-29 - overweight 302365988 Active 2021 Not Available [facility] 3 04:51:12 Acute exacerbati on of chronic obstructiv e pulmonary disease 413427142 Active 2021 Not Available [facility] 3 04:51:12 Lumbago with sciatica 342421517 Active 2021 Not Available [facility] 3 04:51:12 Ventricula r premature complex 176142724 Active 2021 Not Available [facility] 3 04:51:13 Lesion of liver 651601057 Active 2021 Not Available [facility] 3 04:51:13 Current tear of medial cartilage AND/OR meniscus of knee Active 2019 Not Available [facility] 3 04:51:13 Moderate chronic obstructiv e pulmonary disease 515299487 Active 2018 Not Available [facility] 3 04:51:13 Hypertensi ve disorder 46858842 Active 2017 Not Available [facility] 3 04:51:13 Solitary nodule of lung 973614180 Active 2018 Not Available [facility] 3 04:51:13 Cough 10259478 Active 2021 Not Available [facility] 3 04:51:13 Hyperlipid emia 16958462 Active 2018 Not Available [facility] 3 04:51:13 Dyspnea on exertion 25971908 Active 2021 Not Available [facility] 3 04:51:13 Problem Notes None recorded. Procedures Surgical History Date Name Laterality Status Provider Name and Address Organization Details Recorded Time 01/12/20 23 Medicare Wellness CPT Code, subsequent completed MERRITT Duenas [facility] 01/11/2023 10:41:49 02/14/19 20 colonoscopy completed MERRITT Duenas [facility] 01/11/2023 11:11:54 Hernia Repair completed Not Available On license of [facility] 04/14/2022 04:42:53 Imaging Results Imaging Date Name Status LastModified by Organization Details LastModified Time 01/11/2022 XR, lumbosacral spine completed [id number], [place], [address], 04/14/2022 05:04:14 06/25/2022 CT, chest, w/o contrast completed [email or web address] Information not available 07/05/2022 18:05:41 07/26/2022 complete [...] Not available Not available Not available 04/14/2022 39366 8003 SNOMED Not Available [facility] 05:03:45 Medications Name Sig Start [...] administe red by the provider 06/04 completed [facility]: 0003- 0494- 20 Not Available Not Available [...] administe red by the provider 06/04 completed [facility]: 0409- 4276- 17 Not Available Not Available [...] % 96 % 76 /min 97.7 [degF] 42756.8 9 g 124 mm[Hg] 70 mm[Hg] Not Available [facility] 3 04:44:35 Date Recorded Body height Body weight Body temperature Heart rate Oxygen saturation Oxygen saturation in Arterial blood by Pulse oximetry Systolic blood pressure Diastolic blood pressure Provider Name and Address Organization Details Last Updated DateTime 3 170.18 cm 30526.4 8 g 97.3 [degF] 84 /min 95 % 95 % 134 mm[Hg] 68 mm[Hg] Orquidea Garica RN [place] [facility] [place] [facility] 3 15:16:59 Date Recorded Body height Body mass index (BMI) Body weight Body temperature Heart rate Oxygen saturation Oxygen saturation in Arterial blood by Pulse oximetry Systolic blood pressure Diastolic blood pressure Provider Name and Address Organization Details Last Updated DateTime 3 170.18 cm 26 kg/m2 66787.3 3 g 98.2 [degF] 79 /min 96 % 96 % 130 mm[Hg] 68 mm[Hg] Claudia Rudolph MA [facility] [employer] [facility] 3 10:57:06 Date Recorded Body height Body mass index (BMI) Body weight Body temperature Heart rate Oxygen saturation Oxygen saturation in Arterial blood by Pulse oximetry Systolic blood pressure Diastolic blood pressure Provider Name and Address Organization Details Last Updated DateTime 3 170.18 cm 25.7 kg/m2 69774.1 5 g 98.3 [degF] 94 /min 96 % 96 % 118 mm[Hg] 56 mm[Hg] Lucy Ferrell [facility] [employer] [facility] 3 14:21:50 Date Recorded Body height Body temperature Body mass index (BMI) Body weight Respiratory rate Oxygen saturation Oxygen saturation in Arterial blood by Pulse oximetry Heart rate Systolic blood pressure Diastolic blood pressure Provider Name and Address Organization Details Last Updated DateTime 3 170.18 cm 96.3 [degF] 24.6 kg/m2 29172 g 16 /min 96 % 96 % 88 /min 130 mm[Hg] 80 mm[Hg] MERRITT Duenas [facility] [employer] [facility] 3 11:10:23 Social History Question Answer Notes LastModified by Organization Details LastModified Time Tobacco Smoking Status Former Smoker quit 2013 Gisela Matias MA [facility] [employer] [facility] 10/25/2022 14:15:45 Do You Have An Advance Directive? Yes [id number] [id number] Information not available 04/14/2022 Do You Wear A Helmet When Biking? No Information not available 10/25/2022 Are You Blind Or Do You Have Difficulty Seeing? Yes Wears Glassses Information not available 10/25/2022 What Is Your Level Of Caffeine Consumption? Moderate [id number] Information not available 04/14/2022 How Much Tobacco Do You Chew? None [id number].0301 [id number] Information not available 04/14/2022 In The 14 [...] Type Of Diet Are You Following? REGULAR [id number].030 [id number] Information not available 04/14/2022 What Is The Highest Grade Or Level Of School You Have Completed Or The Highest Degree You Have Received? [id number] Information not available 10/25/2022 Have There Been Any Changes To Your Family Or Social Situation? No Information not available 10/25/2022 When Did You Quit Smoking? 6-10yearssincelast cigarette Information not available 10/25/2022 Are There Any Guns Present In Your Home? Yes Information not available 10/25/2022 Do You Use Insect Repellent Routinely? Yes Information not available 10/25/2022 Where Do You Live? SingleLevelHouse [email or web address] Information not available 01/11/2023 Advance Directive- Providers Has Reviewed Directive And Consents To Follow Them (insert Provider Name With Any Objectives In Notes Field) Yes [id number] Information not available 04/14/2022 Do You Have A Medical Power Of Speech And Language Clinician? Yes , Francine [email or web address] Information not available 01/11/2023 What Was The Date Of Your Most Recent Tobacco Screening? 09/10/2022 Information not available 10/25/2022 Have You Ever Been Counseled For Unhealthy Alcohol Use? No Information not available 10/25/2022 Do You Have Any Pets? No [email or web address] Information not available 01/11/2023 What Is Your Relationship Status? [id number].0301 [id number] Information not available 04/14/2022 Do You Use Your Seat Belt Or Car Seat Routinely? Yes Information not available 10/25/2022 Do You Have Smoke And Carbon Monoxide Detectors In Your Home? Yes Information not available 10/25/2022 At What Age Did You Start Smoking Tobacco? 18 Information not available 10/25/2022 Are You Passively Exposed To Smoke? No Information not available 10/25/2022 Are There Any Smokers In Your House? No Information not available 10/25/2022 How Much Tobacco Do You Smoke? 1 PPD MIGRATION.0301 [id number] Information not available 04/14/2022 Do You Use Sunscreen Routinely? Yes Information [...] or recreational drugs? No Information not available 10/25/2022 What is your level of alcohol consumption? Heavy [id number].[id number] 6526 Information not available 04/14/2022 Do you or have you ever used smokeless tobacco? Never used smokeless tobacco MIGRATION.[id number] Information not available 04/14/2022 Do you have difficulty walking or climbing [...] or bathing? No Information not available 10/25/2022 Do you or have you ever used e-cigarettes or vape? Never used electronic cigarettes Information not available 10/25/2022 What is your exercise level? Occasional MIGRATION.399120 [id number] Information not available 04/14/2022 Mental Status Question Answer Note LastModified by Organizat ion Details LastModified Time Do you feel stressed (tense, restless, nervous, or anxious, or unable to sleep at night)? [id number] Information not available 10/25/2022 Do you have difficulty concentrating, remembering or making decisions? No Information no t available 10/25/2022 Family History Relationship Description Onset Age of this Age Resolved Age Notes LastModified by Organization Details LastModified Time Mother Hypertensive disorder [id number] Not available 04/14/2022 04:42:55 Father Malignant tumor of colon Not available 2022 14:15:44 Medical History Condition Response LUNG DISEASE/DISORDER Y HEARTBURN / REFLUX Y HYPERTENSION Y Immunizations Vaccine Type Date Status Note Provider Nam e and Address Organization Details Recorded Time Influenza, adjuvanted, quadrivalent, PF 3 completed TRACY Cherry - [facility] 11/15/2022 13:03:36 influenza, unspecified formulation 0 completed Not Available [facility] 04/14/2022 05:03:15 Influenza, split virus, quadrivalent, preservative 9 completed Not Available [facility] 04/14/2022 05:03:15 Influenza, split virus, quadrivalent, preservative 1 completed Not Available [facility] 04/14/2022 05:03:15 COVID-19, mRNA, LNP-S, PF, 100 mcg/0.5mL dose or 50 mcg/0.25mL dose 1 completed Not Available [facility] 04/14/2022 05:03:15 COVID-19, mRNA, LNP-S, PF, 100 mcg/0.5mL dose or 50 mcg/0.25mL dose 1 completed Not Available [facility] 04/14/2022 05:03:15 influenza, unspecified formulation 8 completed Not Available [facility] 04/14/2022 05:03:15 Past Encounters Encounter ID Performer Location Encounter Start Date Encounter Closed Date Diagnosis/Indication Diagnosis SNOMED-CT Code Diagnosis ICD10 Code Diagnosis Note [id number] [facility] [place] [address] [place] [address] 06/04/2020 00:00:00 06/04/2020 13:30:56 [id number] [facility] [place] [address] [place] [address] 08/04/2020 00:00:00 08/04/2020 13:39:56 [id number] [facility] [place] [address] [place] [address] 10/10/2020 00:00:00 10/10/2020 13:45:47 [id number] [facility] [place] [address] [place] [address] 11/06/2020 00:00:00 11/06/2020 23:43:19 [id number] MARNIE Hernandez [facility] [place] [address] [place] [address] 01/07/2021 00:00:00 01/09/2021 20:36:22 [id number] [facility] [place] [address] [place] [address] 01/26/2021 00:00:00 01/26/2021 14:01:39 [id number]||2024-06-26 15:57:00|CT_ITS|WISOTSKYB|Imaging|[id number]|"CT scan of the Neck Technique: 2.5 mm axial scans were obtained through the neck after intravenous administration of 75 c c Omnipaque 350. Coronal and sagittal reconstructions of the neck were obtained. Dose reduction techn ique was used on this scan by utilizing automated exposure control and iterative reconstruction techn ique. The dose-length product (DLP) was 409.26 mGy-cm. Clinical History: Tonsillar mass Findings: There is a masslike appears arise from the left palatine tonsil measuring approximately 2.7 x 2.0 cm in transverse dimensions, encroaching into the left side of the airway at this level, suspicious for neoplastic lesion until proven otherwise. Largest left level 2 lymph node measures 10 mm in short axi s. No other enlarged lymph nodes are identified. Parapharyngeal fat preserved bilaterally. Right iqugmiut dulce maria tonsil appears unremarkable. Parotid and submandibular glands are unremarkable. The thyroid gland appears normal. Images of the lung apices reveal advanced emphysema and calcified r ight apical granuloma. Impression: Left palatine tonsillar mass measures approximately 2.7 x 2.0 cm. This is suspicious for neoplasm unt il proven otherwise. Direct inspection/tissue sample advised. Borderline enlarged left level [address] should be considered to better evaluate for hyper metabolic/early metastatic lymph nodes. Reviewed, dictated and finalized at [facility]. Impression: Left palatine tonsillar mass measures approximately 2.7 x 2.0 cm. This is suspi cious for neoplasm until proven otherwise. Direct inspection/tissue sample advi sed. Borderline enlarged left level [address] should be considered to bet ter evaluate for hypermetabolic/early metastatic lymph nodes. "
--- OUTSIDE RECORDS SUMMARY | 2024-06-26 06:38 | XMS_ITS ---
Author Organization [facility] [place] ([address]) Address [address] [place] [address] Care Team Providers Care News Assistant Name Role Phone Vita Schneider Primary Care Provider Unavailab Barb Issa Unavailable [phone] REASON FOR VISIT ARC follow-up Encounters Encounter Location Date Provider [facility] [address] [place] [address] 06/20/2024 Barb Leiva Plan Of Treatment No Information Progress Notes * Lawrence KWONDOB:[birth year] (73 yo M)Acc No.[id number]:06/20/2024 Progress Notes Patient: Ulises MCCAINord Provider: Raul Leiva MD :1950 A ge:73 Y S ex:Male Date:06/20/2024 Address:[address] [place], [place] [phone] Pcp:Vita Schneider Subjective: * Chief Complaints: * 1 . ARC follow-up. * Medical History: Objective: * Vitals: Assessment: Plan: * Treatment: * Billing Information: * Visit Code: * Procedure Codes: * Electronic signature of Adeola Leiva MD on 06/26/2024 at 06:37 AM CDT Sign off status: Pending * Provider: Raul Leiva MD Date: 0 06/20/2024 Generated for Abel boothe/Mark/Oseiitting on: 0 06/26/2024 06:37 AM CDT
[2024-06-26 07:02] LABS: Estimated Glomerular Filt Rate > 60
== END 2024-06-26 06:34 | disposition home or self-care (01) ==
PROVIDERS: PCP Physician Assistant; Visit Provider Otolaryngology
DX: J35.1 Hypertrophy of tonsils (principal)
CPT/HCPCS: 70491; Q9967